=== PATIENT | female | born 1990 | race African-American/Black ===

== ENCOUNTER → 2017-01-30 | Outpatient (REF) | payer MEDICAID, SELFPAY ==
[2017-01-30 12:31] LABS: MEAN CORPUSCULAR HEMOGLOBIN 29.4 pg (27.0-33.0); MEAN CORPUSCULAR HGB CONC 33.8 g/dl (32.0-36.5); RED CELL DISTRIBUTION WIDTH 13.3 % (11.5-14.5); WHITE BLOOD COUNT 8.5 K/mm3 (4.0-10.0)
[2017-01-30 12:38] LABS: ALBUMIN 3.8 GM/DL (3.2-5.2); ALBUMIN/GLOBULIN RATIO 0.93 (1.00-1.93); ALKALINE PHOSPHATASE 73 U/L (45-117); ALT/SGPT 30 U/L (12-78); ANION GAP 7 MEQ/L (8-16); AST/SGOT 19 U/L (15-37); BILIRUBIN,TOTAL 0.4 MG/DL (0.2-1.0); BLOOD UREA NITROGEN 9 MG/DL (7-18); CARBON DIOXIDE LEVEL 27 MEQ/L (21-32); CHLORIDE LEVEL 104 MEQ/L (98-107); GLOMERULAR FILTRATION RATE > 60.0 (>60); GLUCOSE, FASTING 94 MG/DL (70-105); POTASSIUM SERUM 3.6 MEQ/L (3.5-5.1); SODIUM LEVEL 138 MEQ/L (136-145); TOTAL PROTEIN 7.9 GM/DL (6.4-8.2)
== END ==
LOC: M SFHCPLAZ 09:58
PROVIDERS: ATTEND Nurse Practitioner Adult Health
DX: Z00.00 Encounter for general adult medical examination without abnormal findings (principal); Z68.44 Body mass index [BMI] 60.0-69.9, adult; Z83.3 Family history of diabetes mellitus

== ENCOUNTER → 2017-02-11 | Outpatient (CLI) | payer MEDICAID, OTHER, SELFPAY ==
[~2017-02-11] MED LIST: METHACHOLINE KIT (J7674) INH ONE
--- NOTE | 2017-02-11 11:14 | PFTRPT ---
Tech: Franklyn Whitehead SALES TRADER Age: 26 Sex: Female Race: Black Height: 64.00 Inches Weight: 367.00 Lbs BSA: 2.54 Diagnosis: E66.01 Z87.09 L90.5 PULMONARY FUNCTION REPORT ORDERING PROVIDER: CAIO Bartlett DATE OF SERVICE: 02/11/17 SPIROMETRY: Excellent technical quality. The forced vital capacity is reduced. The FEV1 is in proportion. The obstructive index is, therefore, normal. FLOW VOLUME LOOP: The expiratory limb of the flow volume loop suggests some nonspecific reduction. LUNG VOLUMES: The total lung capacity is elevated. The residual volume suggests air trapping. DIFFUSION CAPACITY: The diffusion capacity is normal. HEMOGLOBIN: No hemoglobin is available for correction. AIRWAY MECHANICS: Airways resistance and conductance are normal. IMPRESSION: Underlying air trapping. Please correlate clinically. MTDD
--- NOTE | 2017-02-11 11:53 | PFTRPT ---
Tech: Franklyn Whitehead PAPER SORTER AND COUNTER Age: 26 Sex: Female Race: Black Height: 64.00 Inches Weight: 367.00 Lbs BSA: 2.53 Diagnosis: E66.01 METHACHOLINE CHALLENGE REPORT: ORDERING PROVIDER: CAIO Bartlett DATE OF SERVICE: 02/11/17 INTERPRETATION: The study was of excellent technical quality. Under protocol, methacholine was administered. At a dose of 2.5 mg (13.875 CDUs), a 58% decline in the FEV1 was noted. The PC20 of 0.36 is significant. Flow rates returned to near baseline post bronchodilator administration. IMPRESSION: Positive methacholine challenge study. MTDD
== END ==
LOC: M CARPUL 10:23
PROVIDERS: ATTEND Nurse Practitioner Adult Health
DX: E66.01 Morbid (severe) obesity due to excess calories (principal)
CPT/HCPCS: 94010; 94070; 94726; 94729; J7674

== ENCOUNTER → 2017-06-11 | Outpatient (CLI) | payer OTHER ==
--- NOTE | 2017-06-11 17:18 | REP ---
Clinical: Hypertension. Technique: Acevedo scale evaluation of the kidneys and renal vasculature using curved array transducer. Findings: The kidneys are essentially normal in contour size and echogenicity and reniform shape without hydronephrosis, nephrolithiasis, cystic or renal mass lesion. Right kidney measures 11.6 x 5.8 x 4.4 cm . Left kidney measures 11.8 x 7.0 x 5.4 cm. Bladder is unremarkable and measures 12.6 x 8.1 x 9.5 cm Impression: Normal renal ultrasound. Signed by Patricio Powell MD 06/11/2017 05:08 P
== END ==
LOC: M RAD 15:31
PROVIDERS: ATTEND Nurse Practitioner Adult Health
DX: I10 Essential (primary) hypertension (principal)

== ENCOUNTER → 2017-06-14 | Outpatient (CLI) | payer OTHER ==
--- NOTE | 2017-06-18 12:42 | SLEEPCENT ---
DATE OF STUDY: 06/14/2017 ORDERING PROVIDER: Devika Moon NP Nocturnal polysomnography was performed due to concern for the obstructive sleep apnea syndrome in this patient with a history of excessive somnolence. 7 hours and 7 minutes of data were reviewed. There were 344 minutes of sleep identified. Sleep latency was short at 3 minutes. Rapid eye movement (REM) latency was short at 40 minutes. Sleep architecture showed initial fragmentation, and significant improvement was appreciated after interventions were made. Overall sleep efficiency was 82%. The patient's electrocardiogram (EKG) showed a sinus rhythm with an average heart rate of 76 beats per minute. Electroencephalogram (EEG) showed fairly normal waveforms for awake and sleep. No focal events were identified. There were 164 respiratory events identified of 10 seconds in duration or greater for an apnea-hypopnea index of 28.6. The events were primarily obstructive, not exclusive to sleep stage, more frequent but not exclusive to the supine posture. Oxygen desaturations were seen into the 60s. Having clearly established the presence of obstructive sleep apnea syndrome, testing was stopped shortly after midnight for the application of pressure therapy. The patient was fit with a XINTEC Simplus full face mask of small size. 4 cm of water pressure were applied to the circuit, and the lights were extinguished. Throughout the remaining hours of testing, titration was performed to an optimal pressure of 16, with which the patient slept through REM without respiratory event or oxygen desaturation in the supine posture. IMPRESSION: Severe obstructive sleep apnea syndrome (G47.33). Apnea-hypopnea index 28.6. RECOMMENDATION: Nightly use of pressure therapy, 16 cm of water.
== END ==
LOC: M SLEEP 19:53
PROVIDERS: ATTEND Nurse Practitioner Adult Health
DX: G47.33 Obstructive sleep apnea (adult) (pediatric) (principal)

== ENCOUNTER → 2017-08-28 | Outpatient (CLI) | payer OTHER ==
[2017-08-28 17:07] LABS: HEMATOCRIT 40.7 % (36.0-47.0); HEMOGLOBIN 12.9 g/dl (12.0-16.0); MEAN CORPUSCULAR HEMOGLOBIN 26.9 pg (27.0-33.0); MEAN CORPUSCULAR HGB CONC 31.7 g/dl (32.0-36.5); MEAN CORPUSCULAR VOLUME 84.8 fl (80.0-96.0); PLATELET COUNT, AUTOMATED 292 10^3/uL (150-450); RED CELL DISTRIBUTION WIDTH 13.6 % (11.5-14.5); WHITE BLOOD COUNT 8.4 10^3/uL (4.0-10.0)
[2017-08-28 17:42] LABS: ALBUMIN 3.8 GM/DL (3.2-5.2); ALBUMIN/GLOBULIN RATIO 0.83 (1.00-1.93); ALKALINE PHOSPHATASE 66 U/L (45-117); ALT/SGPT 30 U/L (12-78); ANION GAP 6 MEQ/L (8-16); AST/SGOT 26 U/L (7-37); BILIRUBIN,TOTAL 0.3 MG/DL (0.2-1.0); BLOOD UREA NITROGEN 10 MG/DL (7-18); CALCIUM LEVEL 9.4 MG/DL (8.5-10.1); CARBON DIOXIDE LEVEL 30 MEQ/L (21-32); CHLORIDE LEVEL 103 MEQ/L (98-107); GLOMERULAR FILTRATION RATE > 60.0 (>60); GLUCOSE, FASTING 84 MG/DL (70-100); POTASSIUM SERUM 4.4 MEQ/L (3.5-5.1); SODIUM LEVEL 139 MEQ/L (136-145); TOTAL PROTEIN 8.4 GM/DL (6.4-8.2)
[2017-08-28 18:28] LABS: ESTIMATED AVERAGE GLUCOSE 134 MG/DL (60-110); HEMOGLOBIN A1c 6.3 %
== END ==
LOC: M LAB 15:40
DX: G47.30 Sleep apnea, unspecified (principal); I10 Essential (primary) hypertension; R73.9 Hyperglycemia, unspecified
CPT/HCPCS: 80053

== ENCOUNTER 2017-11-02 07:35 | Emergency (ER) | payer OTHER ==
[2017-11-02] MEDS: IBUPROFEN 800 MG TAB PO ×2 (08:14)
[2017-11-02] MEDS: ONDANSETRON 4 MG ORAL DISINTEGRATING TAB (Q0162 PER 1MG) PO (08:15)
[2017-11-02] MEDS: ACETAMINOPHEN 325 MG TAB PO ×2 (08:15)
[2017-11-02] MEDS: ONDANSETRON 4 MG ORAL DISINTEGRATING TAB (S0181) PO (08:15)
[2017-11-02 08:53] LABS: INFLUENZA A AMPLIFICATION NEGATIVE (NEGATIVE); INFLUENZA B AMPLIFICATION NEGATIVE (NEGATIVE)
== END 2017-11-02 09:24 | disposition home or self-care (01) ==
LOC: M ED 07:35
DX: B34.9 Viral infection, unspecified (principal); H66.92 Otitis media, unspecified, left ear; E66.01 Morbid (severe) obesity due to excess calories; I10 Essential (primary) hypertension; J45.909 Unspecified asthma, uncomplicated; Z87.09 Personal history of other diseases of the respiratory system; Z79.899 Other long term (current) drug therapy
CPT/HCPCS: 71046; Q0162

== ENCOUNTER 2018-04-21 00:01 | Emergency (ER) | payer OTHER ==
[2018-04-21] MEDS: CEPHALEXIN 500 MG CAP PO (00:57)
== END 2018-04-21 01:31 | disposition home or self-care (01) ==
LOC: M ED 00:01
DX: J02.0 Streptococcal pharyngitis (principal); I10 Essential (primary) hypertension; J45.909 Unspecified asthma, uncomplicated; Z79.899 Other long term (current) drug therapy
CPT/HCPCS: 87880

== ENCOUNTER → 2018-08-26 | Outpatient (REF) | payer OTHER ==
[~2018-08-26] MED LIST changes: +AMLO5TAB6; +AMOX875T PO; +KEFL500C17 PO; -METHACHOLINE KIT (J7674) INH ONE; +METO1TAB32; +ZOFR4TAB14 PO
[2018-08-26 13:08] LABS: HEMATOCRIT 41.6 % (36.0-47.0); HEMOGLOBIN 13.5 g/dl (12.0-15.5); MEAN CORPUSCULAR HEMOGLOBIN 28.1 pg (27.0-33.0); MEAN CORPUSCULAR HGB CONC 32.5 g/dl (32.0-36.5); MEAN CORPUSCULAR VOLUME 86.7 fl (80.0-96.0); PLATELET COUNT, AUTOMATED 298 10^3/uL (150-450); WHITE BLOOD COUNT 8.1 10^3/uL (4.0-10.0)
[2018-08-26 13:23] LABS: ALBUMIN 4.2 GM/DL (3.2-5.2); ALT/SGPT 32 U/L (12-78); BILIRUBIN,TOTAL 0.2 MG/DL (0.2-1.0); BLOOD UREA NITROGEN 9 MG/DL (7-18); CALCIUM LEVEL 8.9 MG/DL (8.5-10.1); CARBON DIOXIDE LEVEL 27 MEQ/L (21-32); CHLORIDE LEVEL 104 MEQ/L (98-107); CREATININE FOR GFR 0.69 MG/DL (0.55-1.30); GLOMERULAR FILTRATION RATE > 60.0 (>60); GLUCOSE, FASTING 101 MG/DL (70-100); POTASSIUM SERUM 3.9 MEQ/L (3.5-5.1); SODIUM LEVEL 138 MEQ/L (136-145); TOTAL PROTEIN 8.5 GM/DL (6.4-8.2)
[2018-08-26 14:10] LABS: HEMOGLOBIN A1c 6.7 %
== END ==
LOC: M SFHCPLAZ 10:54
PROVIDERS: ATTEND Nurse Practitioner Adult Health
DX: I10 Essential (primary) hypertension (principal); E74.39 Other disorders of intestinal carbohydrate absorption; G47.30 Sleep apnea, unspecified

== ENCOUNTER 2018-10-12 23:21 | Emergency (ER) | payer OTHER ==
[~2018-10-12] VITALS: Ht 162.6 cm; Wt 167.7 kg
[2018-10-13 00:32] LABS: ABG BASE EXCESS 0.6 (-2.0-2.0); ABG HCO3 24.9 MEQ/L (22.0-26.0); ABG O2 SATURATION 95.1 % (95.0-99.0); ABG PARTIAL PRESSURE CO2 39.2 mmHg (35.0-45.0); ABG PARTIAL PRESSURE O2 75.2 mmHg (75.0-100.0); ABG STANDARD HCO3 24.9 MEQ/L (22.0-26.0); ABG TOTAL CO2 26.1 MEQ/L (22.0-29.0); ABG pH (ARTERIAL) 7.421 UNITS (7.350-7.450)
[2018-10-13 01:43] LABS: BASO # 0.1 10^3/uL (0.0-0.2); BASO % 0.7 % (0.0-1.0); EOS # 0.3 10^3/uL (0.0-0.50); EOS % 2.4 % (0.0-3.0); HEMATOCRIT 39.7 % (36.0-47.0); HEMOGLOBIN 12.9 g/dl (12.0-15.5); LYMPH # 3.6 10^3/uL (1.5-6.5); LYMPH % 33.4 % (24.0-44.0); MEAN CORPUSCULAR HEMOGLOBIN 28.4 pg (27.0-33.0); MEAN CORPUSCULAR HGB CONC 32.5 g/dl (32.0-36.5); MEAN CORPUSCULAR VOLUME 87.3 fl (80.0-96.0); MONO # 0.5 10^3/uL (0.0-0.8); MONO % 4.5 % (0.0-5.0); NEUTROPHILS # 6.3 10^3/uL (1.8-7.7); NEUTROPHILS % 58.6 % (36.0-66.0); PLATELET COUNT, AUTOMATED 309 10^3/uL (150-450); RED BLOOD COUNT 4.55 10^6/uL (4.00-5.40); WHITE BLOOD COUNT 10.8 10^3/uL (4.0-10.0)
[2018-10-13 01:58] LABS: HCG, SERUM QUALITATIVE NEGATIVE (NEGATIVE)
[2018-10-13 02:16] LABS: BLOOD UREA NITROGEN 10 MG/DL (7-18); CALCIUM LEVEL 9.1 MG/DL (8.5-10.1); CARBON DIOXIDE LEVEL 27 MEQ/L (21-32); CHLORIDE LEVEL 107 MEQ/L (98-107); CPK CREATINE PHOSPHOKINASE 140 U/L (26-192); CREATININE FOR GFR 0.63 MG/DL (0.55-1.30); GLOMERULAR FILTRATION RATE > 60.0 (>60); GLUCOSE, FASTING 82 MG/DL (70-100); MB/CK RELATIVE INDEX 1.71 (< OR =4); POTASSIUM SERUM 3.9 MEQ/L (3.5-5.1); SODIUM LEVEL 141 MEQ/L (136-145); TROPONIN I < 0.02 NG/ML (< 0.10)
[2018-10-13] MEDS ORDERED: ISOVUE-370 76% 100ML VIAL (Q9967) As Ordered ONE (03:01)
--- NOTE | 2018-10-13 04:09 | REPVR ---
EXAM: CT Angiography Chest With Contrast EXAM DATE/TIME: 10/13/2018 3:11 AM CLINICAL HISTORY: 28 years old, female; Pain; Chest pain; Additional info: Dysp TECHNIQUE: Imaging protocol: Axial computed tomographic angiography images of the chest with intravenous contrast using CT angiography protocol. Coronal and sagittal reformatted images were created and reviewed. 3D rendering: MIP reconstructed images were created and reviewed. Radiation optimization: All CT scans at this facility use at least one of these dose optimization techniques: automated exposure control; mA and/or kV adjustment per patient size (includes targeted exams where dose is matched to clinical indication); or iterative reconstruction. Contrast material: ISO 370 Contrast volume: 75 ml Contrast route: IV COMPARISON: CR Chest, 2 view PA, Lat 10/13/2018 12:18 AM FINDINGS: Pulmonary arteries: Normal. No pulmonary emboli. Aorta: Normal. No aortic aneurysm. No aortic dissection. Lungs: Minor atelectasis or scarring left lower lobe. Minor focal interstitial opacities of the right upper lobe laterally and right middle lobe. Pleural space: Normal. No pneumothorax. No pleural effusion. Heart: Right to left ventricular ratio 0.7-0.8. Lymph nodes: Unremarkable. No enlarged lymph nodes. Bones/joints: Degenerative change of the spine. Soft tissues: Unremarkable. Other findings: Limitations secondary to patient body habitus. IMPRESSION: 1. No acute pulmonary embolus. 2. Minor patchy parenchymal opacities bilaterally as described. Electronically signed by: Estela Kiran On 10/13/2018 04:09:13 AM
[2018-10-13 04:43] VITALS: BP 152/109
--- NOTE | 2018-10-13 06:46 | ECGEPIP ---
Stationary ECG Study 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
--- NOTE | 2018-10-13 08:07 | REP ---
Chest x-ray: Two views. History: Pain . Comparison study: November 02, 2017 . Findings: The lungs are well inflated and free of infiltrate. The pleural angles are sharp. The heart size is normal. Pulmonary vasculature is not increased. No significant bony abnormality is seen. Impression: Negative chest x-ray. Electronically Signed by Minor Pham MD 10/13/2018 07:59 A
== END 2018-10-13 04:49 | disposition home or self-care (01) ==
LOC: M ED 23:21
DX: R07.89 Other chest pain (principal); E66.01 Morbid (severe) obesity due to excess calories; I10 Essential (primary) hypertension; J45.909 Unspecified asthma, uncomplicated
CPT/HCPCS: 36600; 71046; 71275; 80048; 82550; 82553; 82803; 84703; 85025; 93005; 99284; Q9967

== ENCOUNTER → 2019-02-25 | Outpatient (REF) | payer BC ==
[2019-02-25 15:20] LABS: ALBUMIN 3.8 GM/DL (3.2-5.2); ALT/SGPT 28 U/L (12-78); BILIRUBIN,TOTAL 0.3 MG/DL (0.2-1.0); BLOOD UREA NITROGEN 7 MG/DL (7-18); CARBON DIOXIDE LEVEL 29 MEQ/L (21-32); CHLORIDE LEVEL 105 MEQ/L (98-107); CREATININE FOR GFR 0.62 MG/DL (0.55-1.30); GLOMERULAR FILTRATION RATE > 60.0 (>60); GLUCOSE, FASTING 98 MG/DL (70-100); SODIUM LEVEL 140 MEQ/L (136-145); TOTAL PROTEIN 8.2 GM/DL (6.4-8.2)
[2019-02-25 16:10] LABS: HEMOGLOBIN A1c 6.5 %
== END ==
LOC: M SFHCPLAZ 10:56
PROVIDERS: ATTEND Nurse Practitioner Adult Health
DX: I10 Essential (primary) hypertension (principal); E74.39 Other disorders of intestinal carbohydrate absorption

== ENCOUNTER → 2019-05-08 | Outpatient (REF) ==
[2019-05-08 15:11] LABS: HEP C VIRUS AB INDEX SOURCE PT 0.1 INDEX (0.0-0.8); HEPATITIS B SURFACE ANTIGEN NEGATIVE (NEGATIVE)
[2019-05-08 15:19] LABS: HIV SCREEN CENTAUR SOURCE NEGATIVE (NEGATIVE)
== END ==
LOC: M LAB 12:20
PROVIDERS: ATTEND Family Medicine
DX: Z77.21 Contact with and (suspected) exposure to potentially hazardous body fluids (principal)

== ENCOUNTER 2019-06-01 22:20 | Emergency (ER) | payer BC ==
[~2019-06-01] VITALS: Ht 160 cm; Wt 163.6 kg
[2019-06-02 01:09] LABS: BASO # 0.1 10^3/uL (0.0-0.2); BASO % 0.5 % (0.0-1.0); EOS # 0.2 10^3/uL (0.0-0.5); EOS % 1.3 % (0.0-3.0); HEMATOCRIT 40.7 % (36.0-47.0); HEMOGLOBIN 13.2 g/dl (12.0-15.5); LYMPH # 3.3 10^3/uL (1.5-5.0); LYMPH % 24.6 % (24.0-44.0); MEAN CORPUSCULAR HEMOGLOBIN 28.8 pg (27.0-33.0); MEAN CORPUSCULAR HGB CONC 32.4 g/dl (32.0-36.5); MEAN CORPUSCULAR VOLUME 88.7 fl (80.0-96.0); MONO # 0.7 10^3/uL (0.0-0.8); MONO % 5.3 % (0.0-5.0); NEUTROPHILS # 9.1 10^3/uL (1.5-8.5); NEUTROPHILS % 67.9 % (36.0-66.0); PLATELET COUNT, AUTOMATED 301 10^3/uL (150-450); RED BLOOD COUNT 4.59 10^6/uL (4.00-5.40); WHITE BLOOD COUNT 13.5 10^3/uL (4.0-10.0)
[2019-06-02] MEDS ORDERED: AMOX500C PO (02:03)
[2019-06-02] MEDS ORDERED: AMOXICILLIN 500 MG CAP As Ordered ONE (02:09)
[2019-06-02 02:11] VITALS: BP 170/96
[2019-06-02 02:15] VITALS: BP 166/85
[2019-06-02] MEDS ORDERED: amLODIPine 5 MG TAB PO ONE (02:15)
[2019-06-02] MEDS ORDERED: METOPROLOL SUCC *XL* 25MG TAB (TopROL *XL*) PO ONE (02:15)
--- NOTE | 2019-06-02 02:56 | REP ---
Clinical: Cough and dyspnea . Comparison: 10/13/2018 . Technique: PA and lateral. Findings: The mediastinum and cardiac silhouette are normal. The lung cuevas are clear and without acute consolidation, effusion, or pneumothorax. The skeletal structures are intact and normal. Impression: 1. No acute cardiopulmonary process. Electronically Signed by Patricio Powell MD 06/02/2019 02:47 A
[2019-06-02] MEDS ORDERED: AMOXICILLIN 500 MG CAP PO ONE (03:00)
== END 2019-06-02 02:17 | disposition home or self-care (01) ==
LOC: M ED 22:20
DX: J18.9 Pneumonia, unspecified organism (principal); I10 Essential (primary) hypertension; J45.909 Unspecified asthma, uncomplicated; G47.30 Sleep apnea, unspecified; Z79.899 Other long term (current) drug therapy

== ENCOUNTER → 2020-01-05 | Outpatient (CLI) | payer BC ==
[~2020-01-05] MED LIST changes: +AMOX500C PO
--- NOTE | 2020-01-05 14:55 | REP ---
Left lower extremity Duplex Doppler venous ultrasound: Real time compression and duplex Doppler interrogation of the left lower extremity deep venous system is performed. The left common femoral, superficial femoral and popliteal veins are fully compressible with transducer pressure and demonstrate normal spontaneous and phasic flow, without evidence of deep venous thrombosis. Impression: No evidence of deep venous thrombosis of the left lower extremity femoral popliteal venous system.
== END ==
LOC: M WHC 13:56
PROVIDERS: ATTEND Family Medicine
DX: M79.662 Pain in left lower leg (principal)

== ENCOUNTER → 2020-01-05 | Outpatient (CLI) | payer BC ==
--- NOTE | 2020-01-05 16:36 | REPPI ---
LEFT ANKLE, FOUR VIEWS: Four views of the left ankle performed. No acute fracture or dislocation is seen. The ankle mortise is anatomic. There is moderate soft tissue swelling diffusely. There are tiny posterior inferior calcaneal spurs. Electronically Signed by Saul Acevedo MD 01/06/2020 04:40 P
== END ==
LOC: M PLAIMG 14:43
PROVIDERS: ATTEND Family Medicine
DX: M79.662 Pain in left lower leg (principal); M77.32 Calcaneal spur, left foot; M79.89 Other specified soft tissue disorders

== ENCOUNTER → 2020-01-12 | Outpatient (CLI) | payer BC ==
--- NOTE | 2020-01-12 11:26 | REPPI ---
Clinical: Left foot pain. Technique: AP, lateral, bilateral oblique views left foot . Findings: The osseous structures and joint spaces are intact and normal. There is no evidence for acute fracture or dislocation. Surrounding soft tissues are unremarkable. No subcutaneous emphysema or radiodense foreign body. Impression: No acute fracture or dislocation. Electronically Signed by Patricio Powell MD 01/12/2020 11:18 A
[2020-01-12 11:56] LABS: HEMATOCRIT 42.1 % (36.0-47.0); HEMOGLOBIN 13.2 g/dl (12.0-15.5); MEAN CORPUSCULAR HGB CONC 31.4 g/dl (32.0-36.5); MEAN CORPUSCULAR VOLUME 89.4 fl (80.0-96.0); PLATELET COUNT, AUTOMATED 283 10^3/uL (150-450); RED BLOOD COUNT 4.71 10^6/uL (4.00-5.40); WHITE BLOOD COUNT 7.8 10^3/uL (4.0-10.0)
[2020-01-12 12:08] LABS: ALBUMIN 3.8 GM/DL (3.2-5.2); ALT/SGPT 34 U/L (12-78); BILIRUBIN,TOTAL 0.5 MG/DL (0.2-1.0); BLOOD UREA NITROGEN 10 MG/DL (7-18); CARBON DIOXIDE LEVEL 28 MEQ/L (21-32); CHLORIDE LEVEL 104 MEQ/L (98-107); CHOLESTEROL LEVEL 201 MG/DL (<200); CHOLESTEROL RISK RATIO 7.444 (<5); CREATININE FOR GFR 0.67 MG/DL (0.55-1.30); GLOMERULAR FILTRATION RATE > 60.0 (>60); GLUCOSE, FASTING 94 MG/DL (70-100); HDL CHOLESTEROL 27 MG/DL (>40); LDL CHOLESTEROL 138 MG/DL (<100); NON-HDL-C 174 MG/DL; POTASSIUM SERUM 4.1 MEQ/L (3.5-5.1); SODIUM LEVEL 138 MEQ/L (136-145); TOTAL PROTEIN 8.3 GM/DL (6.4-8.2); TRIGLYCERIDES LEVEL 181 MG/DL (<150)
[2020-01-12 13:17] LABS: HEMOGLOBIN A1c 6.6 %
== END ==
LOC: M PLAIMG 09:34
PROVIDERS: ATTEND Nurse Practitioner Adult Health
DX: E74.39 Other disorders of intestinal carbohydrate absorption (principal); E66.01 Morbid (severe) obesity due to excess calories; M79.672 Pain in left foot

== ENCOUNTER 2020-04-05 19:11 | Emergency (ER) | payer BC ==
[~2020-04-05] VITALS: Ht 160 cm; Wt 176.6 kg
[~2020-04-05 19:11] MED LIST changes: +AMLO1TAB24; -AMLO5TAB6
[2020-04-05] MEDS ORDERED: CHLO125TA (19:21)
[2020-04-05] MEDS ORDERED: METOPROLOL SUCC *XL* 25MG TAB (TopROL *XL*) PO ONE (20:30)
[2020-04-05] MEDS ORDERED: amLODIPine 5 MG TAB PO ONE (20:30)
[2020-04-05 20:42] VITALS: BP 146/68
[2020-04-05] MEDS ORDERED: AMLO1TAB24 PO (22:04)
[2020-04-05] MEDS ORDERED: METO1TAB32 PO (22:04)
[2020-04-05 22:31] VITALS: BP 145/70
== END 2020-04-05 22:35 | disposition home or self-care (01) ==
LOC: M ED 19:11
DX: I10 Essential (primary) hypertension (principal); G44.209 Tension-type headache, unspecified, not intractable; F41.1 Generalized anxiety disorder; Z87.891 Personal history of nicotine dependence; Z79.899 Other long term (current) drug therapy

== ENCOUNTER 2020-04-09 19:20 | Emergency (ER) | payer BC ==
[~2020-04-09] VITALS: Ht 162.6 cm; Wt 174.5 kg
[~2020-04-09 19:20] MED LIST changes: +AMLO1TAB24 PO; +CHLO125TA; +METO1TAB32 PO
[2020-04-09 19:55] LABS: BASO # 0.1 10^3/uL (0.0-0.2); BASO % 0.7 % (0.0-1.0); EOS # 0.2 10^3/uL (0.0-0.5); EOS % 2.5 % (0.0-3.0); HEMATOCRIT 42.7 % (36.0-47.0); HEMOGLOBIN 13.7 g/dl (12.0-15.5); LYMPH # 2.2 10^3/uL (1.5-5.0); LYMPH % 25.2 % (24.0-44.0); MEAN CORPUSCULAR HEMOGLOBIN 28.4 pg (27.0-33.0); MEAN CORPUSCULAR HGB CONC 32.1 g/dl (32.0-36.5); MEAN CORPUSCULAR VOLUME 88.4 fl (80.0-96.0); MONO # 0.5 10^3/uL (0.0-0.8); MONO % 5.4 % (0.0-5.0); NEUTROPHILS # 5.8 10^3/uL (1.5-8.5); NEUTROPHILS % 65.6 % (36.0-66.0); RED BLOOD COUNT 4.83 10^6/uL (4.00-5.40); WHITE BLOOD COUNT 8.9 10^3/uL (4.0-10.0)
[2020-04-09 20:18] LABS: HCG, SERUM QUALITATIVE NEGATIVE (NEGATIVE)
[2020-04-09] MEDS ORDERED: GI COCKTAIL 50ML BTL(HYOSCYAMINE/MAALOX/LIDOCAINE VISCOUS)(1:3:1) PO ONE (20:30)
[2020-04-09 20:38] LABS: BLOOD UREA NITROGEN 12 MG/DL (7-18); CALCIUM LEVEL 8.9 MG/DL (8.5-10.1); CARBON DIOXIDE LEVEL 25 MEQ/L (21-32); CHLORIDE LEVEL 108 MEQ/L (98-107); CK-MB VALUE MASS 2.2 NG/ML (<3.6); CPK CREATINE PHOSPHOKINASE 226 U/L (26-192); CREATININE FOR GFR 0.73 MG/DL (0.55-1.30); GLOMERULAR FILTRATION RATE > 60.0 (>60); GLUCOSE, FASTING 109 MG/DL (70-100); MB/CK RELATIVE INDEX 0.97 (< OR =4); POTASSIUM SERUM 4.5 MEQ/L (3.5-5.1); SODIUM LEVEL 138 MEQ/L (136-145); TROPONIN I < 0.02 NG/ML (< 0.10)
[2020-04-09 22:05] VITALS: BP 151/74
--- NOTE | 2020-04-09 22:07 | REPVR ---
PROCEDURE INFORMATION: Exam: XR Chest, 1 View Exam date and time: 04/09/2020 9:34 PM Age: 30 years old Clinical indication: Chest pain; Type not specified TECHNIQUE: Imaging protocol: XR of the chest Views: 1 view. COMPARISON: CR Chest, 2 view JAKE Lat 2019-06-02 01:28 FINDINGS: Limitations: Limited by patient's body habitus. Lungs: Unremarkable. No consolidation. Pleural space: Unremarkable. No pleural effusion. No pneumothorax. Heart/Mediastinum: Unremarkable. No cardiomegaly. Bones/joints: Unremarkable. IMPRESSION: No acute findings. Electronically signed by: Jose Luis Irene On 04/09/2020 22:07:45 PM
--- NOTE | 2020-04-10 15:26 | ECGEPIP ---
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
== END 2020-04-09 22:23 | disposition home or self-care (01) ==
LOC: M ED 19:20
DX: R07.89 Other chest pain (principal); R06.02 Shortness of breath; I10 Essential (primary) hypertension; E78.5 Hyperlipidemia, unspecified; F33.9 Major depressive disorder, recurrent, unspecified; Z79.899 Other long term (current) drug therapy

== ENCOUNTER → 2020-08-03 | Outpatient (CLI) | payer BC ==
--- NOTE | 2020-08-04 10:32 | REPPI ---
INDICATION: M79.672 LEFT FOOT PAIN COMPARISON: None. TECHNIQUE: AP, lateral, bilateral oblique views left foot. FINDINGS: The osseous structures and joint spaces are intact and normal. There is no evidence for acute fracture or dislocation. Surrounding soft tissues are unremarkable. No subcutaneous emphysema or radiodense foreign body. IMPRESSION: Normal left foot examination.. No acute fracture or dislocation. <Electronically signed by Patricio Powell > 08/04/20 1029
== END ==
LOC: M PLAIMG 15:20
PROVIDERS: ATTEND Physician Assistant
DX: M79.672 Pain in left foot (principal)

== ENCOUNTER → 2020-08-18 | Outpatient (REF) | payer BC ==
[2020-08-18 14:02] LABS: ALT/SGPT 38 U/L (12-78); BILIRUBIN,TOTAL < 0.1 MG/DL (0.2-1.0); BLOOD UREA NITROGEN 14 MG/DL (7-18); CALCIUM LEVEL 9.3 MG/DL (8.5-10.1); CARBON DIOXIDE LEVEL 29 MEQ/L (21-32); CHLORIDE LEVEL 104 MEQ/L (98-107); CREATININE FOR GFR 0.68 MG/DL (0.55-1.30); GLOMERULAR FILTRATION RATE > 60.0 (>60); GLUCOSE, FASTING 97 MG/DL (70-100); POTASSIUM SERUM 3.9 MEQ/L (3.5-5.1); SODIUM LEVEL 140 MEQ/L (136-145); TOTAL PROTEIN 7.9 GM/DL (6.4-8.2)
[2020-08-18 14:17] LABS: CREATININE, URINE 90.2 MG/DL; MALB URINE SIEMENS 45.7 MG/L; MAU/CREAT RATIO 50.6 MCG/MG (0.0-30.0)
[2020-08-18 14:52] LABS: HEMOGLOBIN A1c 5.8 %
== END ==
LOC: M SFHCPLAZ 11:20
PROVIDERS: ATTEND Nurse Practitioner Adult Health
DX: E11.9 Type 2 diabetes mellitus without complications (principal)

== ENCOUNTER 2021-05-06 20:37 | Emergency (ER) | payer BC ==
[~2021-05-06] VITALS: Ht 160 cm; Wt 154.9 kg
--- OUTSIDE RECORDS SUMMARY | 2021-05-06 20:44 | CCD ---
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 Active confir med 963985242 Problem Family history of diabetes mellitus Z83.3 Acti ve confirmed 563232882 Problem Morbid (severe) obesity due to excess calories E66 .01 Active confirmed 058183740 Problem Contraceptive education Z30.09 Active confirmed 840552575 Problem Anxiety F41.9 Active confirmed 60040101 Problem Hx of pleural empyema Z87.09 Active confirmed 702139843 Problem Glucose intolerance E74.39 Active confirmed 8409384 Problem Body mass index (BMI) of 60.0-69.9 in adult Z68.44 Active confirmed 157495188 Problem Essential hypertension I10 Active confirmed 70727630 Problem Uncomplicated asthma, unspecified asthma severity J45.909 Active confirmed 616806929 Problem Severe sleep apnea G47.30 Active confirmed 7 1518971 Problem Type 2 diabetes mellitus wit hout complication, without long-term current use of insulin E11.9 Active confirmed 143561047 ALLERGIES No Known Allergies ENCOUNTERS from 1990 to 2021-02-21 Encounter Location Date Provider Diagnosis [place] [id number] [facility] [phone] [place] [address] Feb, Blanche Rabagoage IMMUNIZATIONS Vaccine Route Administration Date Status Influenza 6mo & up Fluzone Unknown Apr 18, 2020 Admin istered Influenza 6mo & up Fluzone Unknown Jun 05, 2019 Admin istered Influenza 6mo & up Fluzone Unknown May 08, 2017 Admin istered SOCIAL HISTORY Tobacco Use: Social History Observation Description Date Details (start date - stop date) Never Smoker Sex Assigned At : Social History Observation Description Sex Assigned At Unknown Education: Question Answer Notes 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 Sexual Hx: Question Answer Notes Had sex in the last 12 months (vaginal, oral, or anal)? Yes Have you ever had an STD? No Prevention Strategies discussed: Condoms with Men only Use protection? No Drug and Alcohol Question Answer Notes Total Score: 0 Interpretation: No problems reported Alcohol Screening: Question Answer Notes Did you have a drink containing alcohol in the past year? No Points 0 Interpretation Negative BMI Care Goal Follow-Up Question Answer Notes Above Normal BMI Follow-Up Dietary management educatio n, guidance, and counseling Tobacco Use: Question Answer Notes Are you a: never smoker REASON FOR REFERRAL No Information VITAL SIGNS No information MEDICATIONS Medication SIG (Take, Route, Frequency, Duration) Notes Start Da te End Date Status Womens Daily Formula - 1 tab Orally bid Vitafusion Active Fluticasone Propionate 50 MCG/ACT 1 spray in each nost ril Nasally Once a day for 30 day(s) Active Amlodipine Besylate 5 MG TAKE ONE TABLET BY MOUTH EVERY DAY for 90 Active Post-OP Shoe/Soft Top Women - as directed dx: M79.672 for 14 day s Jul, Active Ciprofloxacin-Dexamethasone 0.3-0.1 % 4 drps into each ear Otic Twice a day for 7 day(s) Sep, Active Lisinopril 10 MG 1 tablet Orally Once a day for 90 Active CPAP Active Januvia 100 MG 1 tablet Orally Once a day for 90 days Active Norvasc 5 MG 1 tablet Orally Once a day for 90 day(s) Active Ventolin HFA 108 (90 Base) MCG/ACT 1 puff as needed Inhalation ever y 4 hrs Active Toprol XL 25 mg 1 tablet Orally Once a day for 30 Active Chlorthalidone 25 MG 1 tablet in the morning with food Orally Once a day for 30 day(s) Active Advair Diskus 250-50 MCG/DOSE 1 puff Inhalation Twice a day for 30 days May, Not-Taking PROCEDURES No Information RESULTS No Results REASON FOR VISIT No Information MEDICAL (GENERAL) HISTORY Type Description Date Medical History 06/14/2014, Jacqueline, left t horacotomy, decorticate dictation and chemical pleurodesis for left empyema 400 mL of loculated pleural fluid removed Medical History history of hypertension Medical History morbid obesity Medical History 02/11/2017 positive methacholine challen ge study at [facility] Medical History 06/14/17 Severe Sleep Apnea, Cpap thru [facility] Medical History hsitory of cyst Surgical History [facility], left thor acotomy decortication and chemical pleurodesis 06/14/2014 Hospitalization History [facility] er [facility], left empyema, left for, me. 400 mL removed 06/14/2014 Goals Section No Information Health Concerns No Information MEDICAL EQUIPMENT No Information MENTAL STATUS No Information FUNCTIONAL STATUS No Information ASSESSMENTS No Information PLAN OF TREATMENT Medication Medication Name Sig Start Date Stop Date Amlodipine Besylate 5 MG TAKE ONE TABLET BY MOUTH EVERY DAY for 90 Ciprofloxacin-Dexamethasone 0.3-0.1 % 4 drps into each ear Otic Twice a day for 7 day(s) Sep, Toprol XL 25 mg 1 tablet Orally Once a day for 30 Lisinopril 10 MG 1 tablet Orally Once a day for 90 Norvasc 5 MG 1 tablet Orally Once a day for 90 day(s) Insurance Providers Payer Name Payer Address Payer Phone Insured Name Patient Relati onship to Insured Coverage Start Date Coverage End Date BCBS [employer] PPO [phone] [facility] [place] [address] LORY VASQUEZ self
--- OUTSIDE RECORDS SUMMARY | 2021-05-06 20:44 | CCD ---
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 Active confir med 855278483 Problem Family history of diabetes mellitus Z83.3 Acti ve confirmed 979216340 Problem Morbid (severe) obesity due to excess calories E66 .01 Active confirmed 486164750 Problem Contraceptive education Z30.09 Active confirmed 705705503 Problem Anxiety F41.9 Active confirmed 39759339 Problem Hx of pleural empyema Z87.09 Active confirmed 931721981 Problem Glucose intolerance E74.39 Active confirmed 2667266 Problem Body mass index (BMI) of 60.0-69.9 in adult Z68.44 Active confirmed 733347904 Problem Essential hypertension I10 Active confirmed 32276002 Problem Uncomplicated asthma, unspecified asthma severity J45.909 Active confirmed 840013641 Problem Severe sleep apnea G47.30 Active confirmed 7 0652049 Problem Type 2 diabetes mellitus wit hout complication, without long-term current use of insulin E11.9 Active confirmed 490460390 ALLERGIES No Known Allergies ENCOUNTERS from 1990 to 2021-02-21 Encounter Location Date Provider Diagnosis [place] [id number] [facility] [phone] [place] [address] 10 Feb, 2021 Blanche Tipton IMMUNIZATIONS Vaccine Route Administration Date Status Influenza [...] Question Answer Notes 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 Sexual [...] Once a day for 90 days Active Chlorthalidone 25 MG 1 tablet in the morning with food Orally Once a day for 30 day(s) Active Advair Diskus 250-50 MCG/DOSE 1 puff Inhalation Twice a day for 30 days May, Not-Taking PROCEDURES No Information RESULTS No Results REASON FOR VISIT refill MEDICAL (GENERAL) HISTORY Type Description Date Medical History 06/14/2014, Jacqueline, left t horacotomy, decorticate dictation and chemical pleurodesis for left empyema 400 mL of loculated pleural fluid removed Medical History history of hypertension Medical History morbid obesity Medical History 02/11/2017 positive methacholine challen ge study at [facility] Medical History 06/14/17 Severe Sleep Apnea, Cpap thru [facility] Medical History hsitory of cyst Surgical History [facility], left thor acotomy decortication and chemical pleurodesis 06/14/2014 Hospitalization History [facility], left empyema, left for, me. 400 [...] Orally Once a day for 90 days Lisinopril 10 MG 1 tablet Orally Once a day for 90 Norvasc 5 MG 1 tablet Orally Once a day for 90 day(s) Insurance Providers Payer Name Payer Address Payer Phone Insured Name Patient Relati onship to Insured Coverage Start Date Coverage End Date BCBS [place] KARLA PPO [id number] [facility] [place] [address] LORY VASQUEZ self
--- OUTSIDE RECORDS SUMMARY | 2021-05-06 20:44 | CCD ---
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 Active confir med 062830879 Problem Family history of diabetes mellitus Z83.3 Acti ve confirmed 034441471 Problem Morbid (severe) obesity due to excess calories E66 .01 Active confirmed 783922206 Problem Contraceptive education Z30.09 Active confirmed 334089756 Problem Anxiety F41.9 Active confirmed 97684134 Problem Hx of pleural empyema Z87.09 Active confirmed 421558895 Problem Glucose intolerance E74.39 Active confirmed 9810385 Problem Body mass index (BMI) of 60.0-69.9 in adult Z68.44 Active confirmed 384269742 Problem Essential hypertension I10 Active confirmed 83007104 Problem Uncomplicated asthma, unspecified asthma severity J45.909 Active confirmed 344632758 Problem Severe sleep apnea G47.30 Active confirmed 7 7402271 Problem Type 2 diabetes mellitus wit hout complication, without long-term current use of insulin E11.9 Active confirmed 364888972 ALLERGIES No Known Allergies ENCOUNTERS from 1990 to 2021-02-27 Encounter Location Date Provider Diagnosis [place] [address] [facility] [phone] [place] [address] Feb, Blanche Tipton IMMUNIZATIONS Vaccine Route Administration Date [...] Question Answer Notes 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 Sexual [...] Notes Start Da te End Date Status Toprol XL 25 mg 1 tablet Orally Once a day for 90 days Active Fluticasone Propionate 50 MCG/ACT 1 spray [...] a day for 7 day(s) Sep, Active CPAP Active Womens Daily Formula - 1 tab Orally bid Vitafusion Active Januvia 100 MG 1 tablet Orally Once a day for 90 days Active Norvasc 5 MG 1 tablet Orally Once a day for 90 day(s) Active Ventolin HFA 108 (90 Base) MCG/ACT 1 puff as needed Inhalation ever y 4 hrs Active Lisinopril 10 MG 1 tablet Orally Once a day for 90 Active Chlorthalidone 25 MG 1 tablet in [...] 02/11/2017 positive methacholine challen ge study at [facility] Medical History 06/14/17 Severe Sleep Apnea, Cpap thru [facility] Medical History hsitory of cyst Surgical History [facility], left thor acotomy decortication and chemical pleurodesis 06/14/2014 Hospitalization History [facility] er [facility], left empyema, left for, me. 400 mL [...] Twice a day for 7 day(s) Sep, Lisinopril 10 MG 1 tablet Orally Once a day for 90 Toprol XL 25 mg 1 tablet Orally Once a day for 90 days Norvasc 5 MG 1 tablet Orally Once a day for 90 day(s) Insurance Providers Payer Name Payer Address Payer Phone Insured Name Patient Relati onship to Insured Coverage Start Date Coverage End Date BCBS [place] KARLA PPO [phone] [facility] [place] [address] LORY VASQUEZ self
--- OUTSIDE RECORDS SUMMARY | 2021-05-06 20:44 | CCD ---
Author Author [facility] Organization [facility] Address Unknown Phone Unavailable Care Team Providers Care Blog Writer Name Role Phone Blanche Tipton Unavailable PROBLEMS ALLERGIES No Known Allergies ENCOUNTERS from 1990 to 2021-02-15 IMMUNIZATIONS SOCIAL HISTORY REASON FOR REFERRAL No Information VITAL SIGNS MEDICATIONS PROCEDURES No Information RESULTS No Results REASON FOR VISIT MEDICAL (GENERAL) HISTORY Goals Section Health Concerns MEDICAL EQUIPMENT No Information MENTAL STATUS FUNCTIONAL STATUS ASSESSMENTS PLAN OF TREATMENT Insurance Providers
--- OUTSIDE RECORDS SUMMARY | 2021-05-06 20:45 | CCD ---
Author Author [facility] Organization [facility] Address Unknown Phone Unavailable Care Team Providers Care Founder And Ceo Name Role Phone Servage, L Blanche MOP HANDLE ASSEMBLER Unavailable Unavailable Servage, L Blanche MOP HANDLE ASSEMBLER Unavailable Unavailable Servage, L Blanche MOP HANDLE ASSEMBLER Unavailable Unavailable Servage, L Blanche MOP HANDLE ASSEMBLER Unavailable Unavailable Servage, L Blanche MOP HANDLE ASSEMBLER Unavailable Unavailable Servage, L Blanche MOP HANDLE ASSEMBLER Unavailable Unavailable Servage, L Blanche MOP HANDLE ASSEMBLER Unavailable Unavailable Servage, L Blanche MOP HANDLE ASSEMBLER Unavailable Unavailable Servage, L Blanche MOP HANDLE ASSEMBLER Unavailable Unavailable Servage, L Blanche MOP HANDLE ASSEMBLER Unavailable Unavailable Servage, L Blanche MOP HANDLE ASSEMBLER Unavailable Unavailable Servage, L Blanche MOP HANDLE ASSEMBLER Unavailable Unavailable Servage, L Blanche MOP HANDLE ASSEMBLER Unavailable Unavailable Servage, L Blanche MOP HANDLE ASSEMBLER Unavailable Unavailable Servage, L Blanche MOP HANDLE ASSEMBLER Unavailable Unavailable Servage, L Blanche MOP HANDLE ASSEMBLER Unavailable Unavailable Servage, L Blanche MOP HANDLE ASSEMBLER Unavailable Unavailable Servage, L Blanche MOP HANDLE ASSEMBLER Unavailable Unavailable Servage, L Blanche MOP HANDLE ASSEMBLER Unavailable Unavailable Servage, L Blanche MOP HANDLE ASSEMBLER Unavailable Unavailable Servage, L Blanche MOP HANDLE ASSEMBLER Unavailable Unavailable Servage, L Blanche MOP HANDLE ASSEMBLER Unavailable Unavailable Servage, L Blanche MOP HANDLE ASSEMBLER Unavailable Unavailable Servage, L Blanche MOP HANDLE ASSEMBLER Unavailable Unavailable Servage, L Blanche MOP HANDLE ASSEMBLER Unavailable Unavailable Servage, L Blanche MOP HANDLE ASSEMBLER Unavailable Unavailable Servage, L Blanche MOP HANDLE ASSEMBLER Unavailable Unavailable Servage, L Blanche MOP HANDLE ASSEMBLER Unavailable Unavailable Servage, L Blanche MOP HANDLE ASSEMBLER Unavailable Unavailable Servage, L Blanche MOP HANDLE ASSEMBLER Unavailable Unavailable Servage, L Blanche MOP HANDLE ASSEMBLER Unavailable Unavailable Servage, L Blanche MOP HANDLE ASSEMBLER Unavailable Unavailable Servage, L Blanche MOP HANDLE ASSEMBLER Unavailable Unavailable Servage, L Blanche MOP HANDLE ASSEMBLER Unavailable Unavailable Servage, L Blanche MOP HANDLE ASSEMBLER Unavailable Unavailable Servage, L Blanche MOP HANDLE ASSEMBLER Unavailable Unavailable Servage, L Blanche MOP HANDLE ASSEMBLER Unavailable Unavailable Servage, L Blanche MOP HANDLE ASSEMBLER Unavailable Unavailable Servage, L Blanche MOP HANDLE ASSEMBLER Unavailable Unavailable Servage, L Blanche MOP HANDLE ASSEMBLER Unavailable Unavailable Servage, L Blanche MOP HANDLE ASSEMBLER Unavailable Unavailable Servage, L Blanche MOP HANDLE ASSEMBLER Unavailable Unavailable Servage, L Blanche MOP HANDLE ASSEMBLER Unavailable Unavailable Servage, L Blanche MOP HANDLE ASSEMBLER Unavailable Unavailable Servage, L Blanche MOP HANDLE ASSEMBLER Unavailable Unavailable Servage, L Blanche MOP HANDLE ASSEMBLER Unavailable Unavailable Servage, L Blanche MOP HANDLE ASSEMBLER Unavailable Unavailable Servage, L Blanche MOP HANDLE ASSEMBLER Unavailable Unavailable Servage, L Blanche MOP HANDLE ASSEMBLER Unavailable Unavailable Servage, L Blanche MOP HANDLE ASSEMBLER Unavailable Unavailable Servage, L Blanche MOP HANDLE ASSEMBLER Unavailable Unavailable Servage, L Blanche MOP HANDLE ASSEMBLER Unavailable Unavailable Servage, L Blanche MOP HANDLE ASSEMBLER Unavailable Unavailable Servage, L Blanche MOP HANDLE ASSEMBLER Unavailable Unavailable Servage, L Blanche MOP HANDLE ASSEMBLER Unavailable Unavailable Servage, L Blanche MOP HANDLE ASSEMBLER Unavailable Unavailable Servage, L Blanche MOP HANDLE ASSEMBLER Unavailable Unavailable Servage, L Blanche MOP HANDLE ASSEMBLER Unavailable Unavailable Servage, L Blanche MOP HANDLE ASSEMBLER Unavailable Unavailable Servage, L Blanche MOP HANDLE ASSEMBLER Unavailable Unavailable Servage, L Blanche MOP HANDLE ASSEMBLER Unavailable Unavailable Servage, L Blanche MOP HANDLE ASSEMBLER Unavailable Unavailable Servage, L Blanche MOP HANDLE ASSEMBLER Unavailable Unavailable Servage, L Blanche MOP HANDLE ASSEMBLER Unavailable Unavailable Servage, L Blanche MOP HANDLE ASSEMBLER Unavailable Unavailable LAROCK, Neisha MCKENNA MOP HANDLE ASSEMBLER Unavailable Unavailable LAROCK, Neisha MCKENNA MOP HANDLE ASSEMBLER Unavailable Unavailable LAROCK, Neisha MKCENNA MOP HANDLE ASSEMBLER Unavailable Unavailable LAROCK, Neisha MCKENNA MOP HANDLE ASSEMBLER Unavailable Unavailable LAROCK, Neisha MCKENNA MOP HANDLE ASSEMBLER Unavailable Unavailable LAROCK, Neisha MCKENNA MOP HANDLE ASSEMBLER Unavailable Unavailable LAROCK, Neisha MCKENNA MOP HANDLE ASSEMBLER Unavailable Unavailable LAROCK, J CLARISA MOP HANDLE ASSEMBLER Unavailable Unavailable LAROCK, J CLARISA MOP HANDLE ASSEMBLER Unavailable Unavailable LAROCK, J CLARISA MOP HANDLE ASSEMBLER Unavailable Unavailable LAROCK, J CLARISA MOP HANDLE ASSEMBLER Unavailable Unavailable LAROCK, J CLARISA MOP HANDLE ASSEMBLER Unavailable Unavailable LAROCK, J CLARISA MOP HANDLE ASSEMBLER Unavailable Unavailable LAROCK, J CLARISA MOP HANDLE ASSEMBLER Unavailable Unavailable LAROCK, J CLARISA MOP HANDLE ASSEMBLER Unavailable Unavailable LAROCK, J CLARISA MOP HANDLE ASSEMBLER Unavailable Unavailable LAROCK, J CLARISA MOP HANDLE ASSEMBLER Unavailable Unavailable LAROCK, J CLARISA MOP HANDLE ASSEMBLER Unavailable Unavailable LAROCK, J CLARISA MOP HANDLE ASSEMBLER Unavailable Unavailable LAROCK, J CLARISA MOP HANDLE ASSEMBLER Unavailable Unavailable LAROCK, J CLARISA MOP HANDLE ASSEMBLER Unavailable Unavailable LAROCK, J CLARISA MOP HANDLE ASSEMBLER Unavailable Unavailable ANTHONY, L RICKY MD Unavailable Unavailable ANTHONY, L RICKY MD Unavailable Unavailable ANTHONY, L RICKY MD Unavailable Unavailable ANTHONY, L RICKY MD Unavailable Unavailable ANTHONY, L RICKY MD Unavailable Unavailable ANTHONY, L RICKY MD Unavailable Unavailable ANTHONY, L RICKY MD Unavailable Unavailable ANTHONY, L RICKY MD Unavailable Unavailable ANTHONY, L RICKY MD Unavailable Unavailable ANTHONY, L RICKY MD Unavailable Unavailable ANTHONY, L RICKY MD Unavailable Unavailable ANTHONY, L RICKY MD Unavailable Unavailable ANTHONY, L RICKY MD Unavailable Unavailable ANTHONY, L RICKY MD Unavailable Unavailable ANTHONY, L RICKY MD Unavailable Unavailable ANTHONY, L RICKY MD Unavailable Unavailable ANTHONY, L RICKY MD Unavailable Unavailable ANTHONY, L RICKY MD Unavailable Unavailable ANTHONY, L RICKY MD Unavailable Unavailable ANTHONY, L RICKY MD Unavailable Unavailable Re-disclosure Warning The records that you are about to access may contain information from federally-assisted alcohol or drug abuse programs. If such information is present, then the following federally mandated warning applies: This information has been disclosed to you from records protected by federal confidentiality rules (42 CFR part 2). The federal rules prohibit you from making any further disclosure of this information unless further disclosure is expressly permitted by the written consent of the person to whom it pertains or as otherwise permitted by 42 CFR part 2. A general authorization for the release of medical or other information is NOT sufficient for this purpose. The Federal rules restrict any use of the information to criminally investigate or prosecute any alcohol or drug abuse patient.The records that you are about to access may contain highly sensitive health information, the redisclosure of which is protected by Article 27-F of the [place] Public Health law. If you continue you may have access to information: Regarding HIV / AIDS; Provided by facilities licensed or operated by the [facility] Office of Mental Health; or Provided by the [facility] Office for People With Developmental Disabilities. If such information is present, then the following [facility] mandated warning applies: This information has been disclosed to you from confidential records which are protected by state law. State law prohibits you from making any further disclosure of this information without the specific written consent of the person to whom it pertains, or as otherwise permitted by law. Any unauthorized further disclosure in violation of state law may result in a fine or chcf sentence or both. A general authorization for the release of medical or other information is NOT sufficient authorization for further disc losure. Family History Family Member Name Family Member Gender Family Member Status Date o f Status Description Data Source(s) Unknown Male Problem [facility] ([facility] Encounters Encounter Providers Location Date Indications Data Source(s ) Unknown [address] [facility] [address] 02/27/2021 12:00:00 AM EDT eCW1 ([facility]) Unknown [address] [facility] [address] 02/21/2021 12:00:00 AM EDT eCW1 ([facility]) Unknown [address] [facility] [address] 02/20/2021 12:00:00 AM EDT eCW1 ([facility]) Unknown [address] [facility] [address] 02/14/2021 12:00:00 AM EDT eCW1 ([facility]) Unknown [address] [facility] [address] 01/12/2021 12:00:00 AM EDT eCW1 ([facility]) Unknown [address] [facility] [address] 11/22/2020 12:00:00 AM EDT eCW1 ([facility]) Unknown [address] [facility] [address] 10/06/2020 12:00:00 AM EDT eCW1 ([facility]) [place] [address] [facility] [address] 09/15/2020 12:00:00 AM EST eCW1 ([facility]) [place] [address] [facility] [address] 09/14/2020 12:00:00 AM EST eCW1 ([facility]) Outpatient Attender: CLARISA CASTLE NP 08/2020 01:18:22 PM EST - 09/13/2020 02:18:42 PM EST DocuTap ([facility] ) [place] [address] [facility] [address] 08/18/2020 12:00:00 AM EST eCW1 ([facility]) [place] [address] [facility] [address] 08/08/2020 12:00:00 AM EST eCW1 ([facility]) [place] [address] [facility] [address] 08/04/2020 12:00:00 AM EST eCW1 ([facility]) [place] [address] [facility] [address] 08/03/2020 12:00:00 AM EST eCW1 ([facility]) [place] [address] [facility] [address] 07/13/2020 12:00:00 AM EST eCW1 ([facility]) [place] [address] [facility] [address] 06/30/2020 12:00:00 AM EST eCW1 ([facility]) [place] [address] [facility] [address] 06/03/2020 12:00:00 AM EST eCW1 ([facility]) [place] [address] [facility] [address] 06/01/2020 12:00:00 AM EST eCW1 ([facility]) [place] [address] [facility] [address] 05/05/2020 12:00:00 AM EDT eCW1 ([facility]) [place] [address] [facility] [address] 04/27/2020 12:00:00 AM EDT eCW1 ([facility]) Emergency Attender: RICKY CRUZ MDConsultant: Blanche Serv age MOP HANDLE ASSEMBLER 04/10/2020 12:10:00 AM EDT - 04/10/2020 06:47:00 AM EDT [facility] Patient discharged. Immunizations Vaccine Date Status Description Data Source(s) COVID-19 VACCINE Judy 10/18/2020 12:00:00 AM EDT completed [facility] Vaccine Series Complete: YESThis Data wa s Submitted to [facility] [employer] New in 2011. IIV4 04/18/2020 12:29:00 PM EDT completed eCW1 ([facility]) New in 2011. IIV4 04/18/2020 12:29:00 PM EDT completed eCW1 ([facility]) New in 2011. IIV4 04/18/2020 12:29:00 PM EDT completed eCW1 ([facility]) New in 2011. IIV4 04/18/2020 12:29:00 PM EDT completed eCW1 ([facility]) New in 2011. IIV4 04/18/2020 12:29:00 PM EDT completed eCW1 ([facility]) New in 2011. IIV4 04/18/2020 12:29:00 PM EDT completed eCW1 ([facility]) New in 2011. IIV4 04/18/2020 12:29:00 PM EDT completed eCW1 ([facility]) New in 2011. IIV4 04/18/2020 12:29:00 PM EDT completed eCW1 ([facility]) New in 2011. IIV4 04/18/2020 12:29:00 PM EDT completed eCW1 ([facility]) New in 2011. IIV4 04/18/2020 12:29:00 PM EDT completed eCW1 ([facility]) New in 2011. IIV4 04/18/2020 12:29:00 PM EDT completed eCW1 ([facility]) New in 2011. IIV4 04/18/2020 12:29:00 PM EDT completed eCW1 ([facility]) New in 2011. IIV4 04/18/2020 12:29:00 PM EDT completed eCW1 ([facility]) New in 2011. IIV4 04/18/2020 12:29:00 PM EDT completed eCW1 ([facility]) New in 2011. IIV4 04/18/2020 12:29:00 PM EDT completed eCW1 ([facility]) New in 2011. IIV4 04/18/2020 12:29:00 PM EDT completed eCW1 ([facility]) New in 2011. II4 04/18/2020 12:29:00 PM EDT completed eCW1 ([facility]) New in 2011. II4 04/18/2020 12:29:00 PM EDT completed eCW1 ([facility]) New in 2011. IIV4 04/18/2020 12:29:00 PM EDT completed eCW1 ([facility]) Medications Medication Brand Name Start Date Product Form Dose Route Admi nistrative Instructions Pharmacy Instructions Status Indications Reaction Description Data Source(s) 25 mg 02/21/2021 12:00:00 AM EDT tablet extended release 24 hr 90 TAKE ONE TABLET BY MOUTH EVERY DAY TAKE ONE TABLET BY MOUTH EVERY DAY SOLD: 02/26/2021 [facility] 5 mg 01/17/2021 12:00:00 AM EDT tablet 90 TAKE ONE TABLET BY MOUTH EVERY DAY TAKE ONE TABLET BY MOUTH EVERY DAY SOLD: 01/17/2021 [facility] 50 mg 01/17/2021 12:00:00 AM EDT tablet 45 TAKE 1 & 1/2 TABLETS BY MOUTH ONCE A DAY TAKE 1 & 1/2 TABLETS BY MOUTH ONCE A DAY SOLD: 01/17/2021 [facility] 0.75 % 12/20/2020 12:00:00 AM EDT gel 70 INSERT ONE APPLICATORFUL VAGINALLY AT BEDTIME FOR 5 DAYS INSERT ONE APPLICATORFUL VAGINALLY AT BEDTIME FOR 5 DA YS SOLD: 12/22/2020 [facility] Metronidazole 500 MG Oral Tablet METRONIDAZOLE 12/01/2020 12:0 0:00 AM EDT tablet 14 TAKE ONE TABLET BY MOUTH TWICE A DAY FOR 7 DAYS TAKE ONE TABLET BY MOUTH TWICE A DAY FOR 7 DAYS SOLD: 12/03/2020 [facility] 25 mg 11/23/2020 12:00:00 AM EDT tablet extended release 24 hr 90 TAKE ONE TABLET BY MOUTH EVERY DAY TAKE ONE TABLET BY MOUTH EVERY DAY SOLD: 11/23/2020 [facility] 50 mg 11/22/2020 12:00:00 AM EDT tablet 30 TAKE ONE TABLET BY MOUTH EVERY DAY TAKE ONE TABLET BY MOUTH EVERY DAY SOLD: 12/22/2020 [facility] 50 mg 11/22/2020 12:00:00 AM EDT tablet 30 TAKE ONE TABLET BY MOUTH EVERY DAY TAKE ONE TABLET BY MOUTH EVERY DAY SOLD: 11/23/2020 [facility] 10 mg 10/15/2020 12:00:00 AM EDT tablet 90 TAKE ONE TABLET BY MOUTH EVERY DAY TAKE ONE TABLET BY MOUTH EVERY DAY SOLD: 10/25/2020 [facility] 25 mg 10/07/2020 12:00:00 AM EDT tablet extended release 24 hr 30 TAKE ONE TABLET BY MOUTH EVERY DAY TAKE ONE TABLET BY MOUTH EVERY DAY SOLD: 10/14/2020 [facility] 0.3-0.1 % 09/29/2020 12:00:00 AM EDT drops,suspension 7 INSTILL 4 DROPS INTO EACH EAR TWICE A DAY FOR 7 DAYS INSTILL 4 DROPS INTO EACH EAR TWICE A DA Y FOR 7 DAYS SOLD: 09/29/2020 [facility] Ciprofloxacin 3 MG/ML / Dexamethasone 1 MG/ML Otic Suspension Ciprofloxacin- Dexamethasone 0.3-0.1 % Ciprofloxacin-Dexamethasone 0.3-0.1 % 09/15/2020 12:00:00 AM EST active Ciproflo xacin-Dexamethasone 0.3-0.1 % eCW1 ([facility]) Ciprofloxacin 3 MG/ML / Dexamethasone 1 MG/ML Otic Suspension Ciprofloxacin- Dexamethasone 0.3-0.1 % Ciprofloxacin-Dexamethasone 0.3-0.1 % 09/15/2020 12:00:00 AM EST active Ciproflo xacin-Dexamethasone 0.3-0.1 % eCW1 ([facility]) Ciprofloxacin 3 MG/ML / Dexamethasone 1 MG/ML Otic Suspension Ciprofloxacin- Dexamethasone 0.3-0.1 % Ciprofloxacin-Dexamethasone 0.3-0.1 % 09/15/2020 12:00:00 AM EST active e CW1 ([facility]) Ciprofloxacin 3 MG/ML / Dexamethasone 1 MG/ML Otic Suspension Ciprofloxacin- Dexamethasone 0.3-0.1 % Ciprofloxacin-Dexamethasone 0.3-0.1 % 09/15/2020 12:00:00 AM EST active Ciproflo xacin-Dexamethasone 0.3-0.1 % eCW1 ([facility]) Ciprofloxacin 3 MG/ML / Dexamethasone 1 MG/ML Otic Suspension Ciprofloxacin- Dexamethasone 0.3-0.1 % Ciprofloxacin-Dexamethasone 0.3-0.1 % 09/15/2020 12:00:00 AM EST active Ciproflo xacin-Dexamethasone 0.3-0.1 % eCW1 ([facility]) Ciprofloxacin 3 MG/ML / Dexamethasone 1 MG/ML Otic Suspension Ciprofloxacin- Dexamethasone 0.3-0.1 % Ciprofloxacin-Dexamethasone 0.3-0.1 % 09/15/2020 12:00:00 AM EST active Ciproflo xacin-Dexamethasone 0.3-0.1 % eCW1 ([facility]) Ciprofloxacin 3 MG/ML / Dexamethasone 1 MG/ML Otic Suspension Ciprofloxacin- Dexamethasone 0.3-0.1 % Ciprofloxacin-Dexamethasone 0.3-0.1 % 09/15/2020 12:00:00 AM EST active Ciproflo xacin-Dexamethasone 0.3-0.1 % eCW1 ([facility]) Ciprofloxacin 3 MG/ML / Dexamethasone 1 MG/ML Otic Suspension Ciprofloxacin- Dexamethasone 0.3-0.1 % Ciprofloxacin-Dexamethasone 0.3-0.1 % 09/15/2020 12:00:00 AM EST active Ciproflo xacin-Dexamethasone 0.3-0.1 % eCW1 ([facility]) Ciprofloxacin 3 MG/ML / Dexamethasone 1 MG/ML Otic Suspension Ciprofloxacin- Dexamethasone 0.3-0.1 % Ciprofloxacin-Dexamethasone 0.3-0.1 % 09/15/2020 12:00:00 AM EST active Ciproflo xacin-Dexamethasone 0.3-0.1 % eCW1 ([facility]) Metronidazole 500 MG Oral Tablet METRONIDAZOLE 09/08/2020 12:0 0:00 AM EST tablet 14 TAKE ONE TABLET BY MOUTH EVERY 1 2 HOURS FOR 7 DAYS TAKE ONE TABLET BY MOUTH EVERY 12 HOURS FOR 7 DAYS SOLD: 09/08/2020 [facility] 10 mg 08/10/2020 12:00:00 AM EST tablet 90 TAKE ONE TABLET BY MOUTH EVERY DAY TAKE ONE TABLET BY MOUTH EVERY DAY SOLD: 08/15/2020 [facility] Post-OP Shoe/Soft Top Women - Post-OP Shoe/Soft Top Women - 08/04/2020 12:00:00 AM EST active Post-OP Shoe/Soft Top Women - eCW1 ([facility]) Post-OP Shoe/Soft Top Women - Post-OP Shoe/Soft Top Women - 08/04/2020 12:00:00 AM EST active Post-OP Shoe/Soft Top Women - eCW1 ([facility]) Post-OP Shoe/Soft Top Women - Post-OP Shoe/Soft Top Women - 08/04/2020 12:00:00 AM EST active Post-OP Shoe/Soft Top Women - eCW1 ([facility]) Post-OP Shoe/Soft Top Women - Post-OP Shoe/Soft Top Women - 08/04/2020 12:00:00 AM EST active Post-OP Shoe/Soft Top Women - eCW1 ([facility]) Post-OP Shoe/Soft Top Women - Post-OP Shoe/Soft Top Women - 08/04/2020 12:00:00 AM EST active Post-OP Shoe/Soft Top Women - eCW1 ([facility]) Post-OP Shoe/Soft Top Women - Post-OP Shoe/Soft Top Women - 08/04/2020 12:00:00 AM EST active Post-OP Shoe/Soft Top Women - eCW1 ([facility]) Post-OP Shoe/Soft Top Women - Post-OP Shoe/Soft Top Women - 08/04/2020 12:00:00 AM EST active Post-OP Shoe/Soft Top Women - eCW1 ([facility]) Post-OP Shoe/Soft Top Women - Post-OP Shoe/Soft Top Women - 08/04/2020 12:00:00 AM EST active eCW1 ([facility]) Post-OP Shoe/Soft Top Women - Post-OP Shoe/Soft Top Women - 08/04/2020 12:00:00 AM EST active Post-OP Shoe/Soft Top Women - eCW1 ([facility]) Post-OP Shoe/Soft Top Women - Post-OP Shoe/Soft Top Women - 08/04/2020 12:00:00 AM EST active Post-OP Shoe/Soft Top Women - eCW1 ([facility]) Post-OP Shoe/Soft Top Women - Post-OP Shoe/Soft Top Women - 08/04/2020 12:00:00 AM EST active Post-OP Shoe/Soft Top Women - eCW1 ([facility]) Post-OP Shoe/Soft Top Women - Post-OP Shoe/Soft Top Women - 08/04/2020 12:00:00 AM EST active Post-OP Shoe/Soft Top Women - eCW1 ([facility]) Post-OP Shoe/Soft Top Women - Post-OP Shoe/Soft Top Women - 08/04/2020 12:00:00 AM EST active Post-OP Shoe/Soft Top Women - eCW1 ([facility]) Post-OP Shoe/Soft Top Women - Post-OP Shoe/Soft Top Women - 08/04/2020 12:00:00 AM EST active Post-OP Shoe/Soft Top Women - eCW1 ([facility]) 25 mg 07/02/2020 12:00:00 AM EST tablet extended release 24 hr 90 TAKE ONE TABLET BY MOUTH EVERY DAY TAKE ONE TABLET BY MOUTH EVERY DAY SOLD: 07/12/2020 [facility] 5 mg 06/25/2020 12:00:00 AM EST tablet 90 TAKE ONE TABLET BY MOUTH EVERY DAY TAKE ONE TABLET BY MOUTH EVERY DAY SOLD: 06/27/2020 [facility] 5 mg 06/25/2020 12:00:00 AM EST tablet 90 TAKE ONE TABLET BY MOUTH EVERY DAY TAKE ONE TABLET BY MOUTH EVERY DAY SOLD: 10/14/2020 [facility] 10 mg 04/27/2020 12:00:00 AM EDT tablet 90 TAKE ONE TABLET BY MOUTH EVERY DAY TAKE ONE TABLET BY MOUTH EVERY DAY SOLD: 05/02/2020 [facility] 100 mg 04/27/2020 12:00:00 AM EDT tablet 90 TAKE ONE TABLET BY MOUTH EVERY DAY TAKE ONE TABLET BY MOUTH EVERY DAY SOLD: 05/02/2020 [facility] Lisinopril 10 MG Oral Tablet Lisinopril 10 MG 04/27/2020 12:00:00 A M EDT 1.0 {tablet} active Lisinopril 10 MG eCW1 ( [facility]) 5 mg 04/06/2020 12:00:00 AM EDT tablet 90 TAKE ONE TABLET BY MOUTH EVERY DAY TAKE ONE TABLET BY MOUTH EVERY DAY SOLD: 04/06/2020 [facility] 25 mg 04/06/2020 12:00:00 AM EDT tablet extended release 24 hr 90 TAKE ONE TABLET BY MOUTH EVERY DAY TAKE ONE TABLET BY MOUTH EVERY DAY SOLD: 04/06/2020 [facility] Insurance Providers Payer name Policy type / Coverage type Policy ID Covered green party ID Covered green party's relationship to robert Policy Robert Plan Information [facility] Community Plan Commercial [id number] Self [id number] [facility] COMMUNITY PLAN [facility] [id number] SP [id number] [facility] Blue Cross and Blue Shield - [place] Blue Cross/B lue Shield [id number] Self [id number] [place] Med[place] Part B [id number] Self [id number] [facility] COMMUNITY [facility]AN [facility] [id number] SP [id number] [facility] COMM[facility]AN [facility] [id number] SP [id number] Medicaid [place] Medigap Part B [id number] Self [id number] ANSI-Medicaid [id number] ANSI-Medicaid [id number] ANSI-Medicaid [id number] ANSI-Medicaid [id number] ANSI-Medicaid [id number] ANSI-Not a Secondary Insurance [id number] ANSI-Not a Secondary Insurance [id number] ANSI-Medicaid [id number] ANSI-Not a Secondary Insurance [id number] ANSI-Medicaid [id number] ANSI-Medicaid [id number] ANSI-Not a Secondary Insurance [id number] ANSI-Not a Secondary Insurance [id number] ANSI-Medicaid [id number] [facility] O [id number] S [id number] SELF PAY ONLY [id number] MEDICAID [id number] SP [id number] SELF PAY ONLY [id number] SP [id number] SELF PAY ONLY UNAVAILABLE UNAV AILABLE O UNAVAILABLE UNAVAILA BLE [employer] BCBS FEDERAL [id number] SP [id number] [place] P[place] [phone] [id number] SP [id number] SELF PAY UNAVAILABLE SP UNAVAILA BLE EXCELLUS BCBS B [id number] S VYS [id number] [place] O 302/307 [id number] SP [id number] Problems, Conditions, and Diagnoses Code Display Name Description Problem Type Effective Dates Data Source(s) I10 Essential (primary) hypertension Essential (primary) h ypertension Diagnosis 04/10/2020 12:10:00 AM EDT [facility] R0789 Other chest pain Other chest pain Diagnosis 04/10/2020 12 :10:00 AM EDT [facility] E74.39 Impaired glucose tolerance Glucose intolerance Problem 08/18/2020 12:00:00 AM EST eCW1 ([facility]) F41.9 [id number] Anxiety Problem 04/27/2020 12:00:00 AM ED T eCW1 ([facility]) Surgeries/Procedures No Information Results ID Date Data Source [id number] 05/04/2021 06:09:00 AM EDT [facility] Name Value Range Interpretation Code Description Data Lanny rce(s) Supporting Document(s) SARS coronavirus 2 RNA [Presence] in Res piratory specimen by SANDY with probe detection NEGATIVE [facility] This lab was ordered by [facility] a nd reported by [facility]. ID Date Data Source [id number] 05/02/2021 12:00:00 AM EDT [facility] Name Value Range Interpretation Code Description Data Lanny rce(s) Supporting Document(s) SARS coronavirus 2 Ag NEGATIVE [facility] This lab was ordered by [facility] and reported by [facility]. ID Date Data Source [id number] 04/18/2021 12:00:00 AM EDT [facility] Name Value Range Interpretation Code Description Data Lanny rce(s) Supporting Document(s) SARS coronavirus 2 Ag NEGATIVE [facility] This lab was ordered by [facility] and reported by [facility]. ID Date Data Source [id number] 04/04/2021 12:00:00 AM EDT [facility] Name Value Range Interpretation Code Description Data Lanny rce(s) Supporting Document(s) SARS coronavirus 2 Ag NEGATIVE [facility] This lab was ordered by [facility] and reported by [facility]. ID Date Data Source [id number] 03/23/2021 12:00:00 AM EDT [facility] Name Value Range Interpretation Code Description Data Lanny rce(s) Supporting Document(s) SARS coronavirus 2 Ag NEGATIVE [facility] This lab was ordered by [facility] and reported by [facility]. ID Date Data Source [id number] 12/20/2020 12:00:00 AM EDT [facility] Name Value Range Interpretation Code Description Data Lanny rce(s) Supporting Document(s) SARS coronavirus 2 Ag NEGATIVE [facility] This lab was ordered by [facility] and reported by [facility]. ID Date Data Source [id number] 12/13/2020 12:00:00 AM EDT [facility] Name Value Range Interpretation Code Description Data Lanny rce(s) Supporting Document(s) SARS coronavirus 2 Ag NEGATIVE [facility] This lab was ordered by [facility] and reported by [facility]. ID Date Data Source [id number] 12/08/2020 12:00:00 AM EDT [facility] Name Value Range Interpretation Code Description Data Lanny rce(s) Supporting Document(s) SARS coronavirus 2 Ag NEGATIVE [facility] This lab was ordered by [facility] and reported by [facility]. ID Date Data Source [id number] 12/06/2020 12:00:00 AM EDT [facility] Name Value Range Interpretation Code Description Data Lanny rce(s) Supporting Document(s) SARS coronavirus 2 Ag NEGATIVE [facility] This lab was ordered by [facility] and reported by [facility]. ID Date Data Source [id number] 11/30/2020 12:00:00 AM EDT [facility] Name Value Range Interpretation Code Description Data Lanny rce(s) Supporting Document(s) SARS-CoV2 Rapid Antigen Negative [facility] This lab was ordered by [facility] and reported by [facility]. ID Date Data Source [id number] 11/24/2020 12:00:00 AM EDT [facility] Name Value Range Interpretation Code Description Data Lanny rce(s) Supporting Document(s) SARS coronavirus 2 Ag NEGATIVE [facility] This lab was ordered by [facility] and reported by [facility]. ID Date Data Source [id number] 11/22/2020 12:00:00 AM EDT [facility] Name Value Range Interpretation Code Description Data Lanny rce(s) Supporting Document(s) SARS coronavirus 2 Ag NEGATIVE [facility] This lab was ordered by [facility] and reported by [facility]. ID Date Data Source [id number] 11/14/2020 12:00:00 AM EDT [facility] Name Value Range Interpretation Code Description Data Lanny rce(s) Supporting Document(s) SARS coronavirus 2 Ag NEGATIVE [facility] This lab was ordered by [facility] and reported by [facility]. ID Date Data Source [id number] 11/10/2020 12:00:00 AM EDT [facility] Name Value Range Interpretation Code Description Data Lanny rce(s) Supporting Document(s) SARS coronavirus 2 Ag NEGATIVE [facility] This lab was ordered by [facility] and reported by [facility]. ID Date Data Source [id number] 10/31/2020 03:28:00 PM EDT [facility] Name Value Range Interpretation Code Description Data Lanny rce(s) Supporting Document(s) SARS-CoV-2 (COVID-19) RNA [Presence] in Respiratory specimen by SANDY with probe detection Not Detected [facility] This lab was ordered by [facility] and reported by [employer]. ID Date Data Source [id number] 10/26/2020 12:00:00 AM EDT [facility] Name Value Range Interpretation Code Description Data Lanny rce(s) Supporting Document(s) SARS-CoV2 Rapid Antigen Negative [facility] This lab was ordered by [facility] and reported by [facility]. ID Date Data Source [id number] 10/22/2020 12:00:00 AM EDT [facility] Name Value Range Interpretation Code Description Data Lanny rce(s) Supporting Document(s) SARS-CoV2 Rapid Antigen Negative [facility] This lab was ordered by [facility] and reported by [facility]. ID Date Data Source [id number] 10/17/2020 03:18:00 PM EDT [facility] Name Value Range Interpretation Code Description Data Lanny rce(s) Supporting Document(s) SARS-CoV-2 (COVID-19) RNA [Presence] in Respiratory specimen by SANDY with probe detection Not Detected [facility] This lab was ordered by [facility] and reported by [employer] ID Date Data Source [id number] 10/13/2020 12:00:00 AM EDT [facility] Name Value Range Interpretation Code Description Data Lanny rce(s) Supporting Document(s) SARS coronavirus 2 Ag NEGATIVE [facility] This lab was ordered by [facility] and reported by [facility] [email or web address] [place]. ID Date Data Source [id number] 10/10/2020 07:00:00 AM EDT [facility] Name Value Range Interpretation Code Description Data Lanny rce(s) Supporting Document(s) SARS coronavirus 2 RNA Not Detected [facility] This lab was ordered by [facility] and reported by [facility]. ID Date Data Source [id number] 10/06/2020 12:00:00 AM EDT [facility] Name Value Range Interpretation Code Description Data Lanny rce(s) Supporting Document(s) SARS coronavirus 2 Ag NEGATIVE [facility] This lab was ordered by [facility] and reported by [facility]. ID Date Data Source [id number] 10/04/2020 11:00:00 AM EDT [facility] Name Value Range Interpretation Code Description Data Lanny rce(s) Supporting Document(s) SARS coronavirus 2 RNA Not Detected [facility] This lab was ordered by [facility] and reported by [facility]. ID Date Data Source [id number] 09/29/2020 12:00:00 AM EDT [facility] Name Value Range Interpretation Code Description Data Lanny rce(s) Supporting Document(s) SARS coronavirus 2 Ag NEGATIVE [facility] This lab was ordered by [facility] and reported by [facility]. ID Date Data Source [id number] 09/26/2020 02:00:00 PM EDT [facility] Name Value Range Interpretation Code Description Data Lanny rce(s) Supporting Document(s) SARS coronavirus 2 RNA Not Detected [facility] This lab was ordered by [facility] and reported by [facility]. ID Date Data Source [id number] 09/22/2020 12:00:00 AM EST [facility] Name Value Range Interpretation Code Description Data Lanny rce(s) Supporting Document(s) SARS coronavirus 2 Ag NEGATIVE [facility] This lab was ordered by [facility] and reported by [facility]. ID Date Data Source [id number] 09/19/2020 03:00:00 PM EST [facility] Name Value Range Interpretation Code Description Data Lanny rce(s) Supporting Document(s) SARS coronavirus 2 RNA Not Detected [facility] This lab was ordered by [facility] and reported by [facility]. ID Date Data Source [id number] 09/15/2020 12:00:00 AM EST [facility] Name Value Range Interpretation Code Description Data Lanny rce(s) Supporting Document(s) SARS coronavirus 2 Ag NEGATIVE [facility] This lab was ordered by [facility] and reported by [facility]. ID Date Data Source [id number] 09/12/2020 12:01:00 PM EST [facility] Name Value Range Interpretation Code Description Data Lanny rce(s) Supporting Document(s) SARS coronavirus 2 RNA Not Detected [facility] This lab was ordered by [facility] and reported by [facility]. ID Date Data Source [id number] 09/08/2020 12:00:00 AM EST [facility] Name Value Range Interpretation Code Description Data Lanny rce(s) Supporting Document(s) SARS coronavirus 2 Ag NEGATIVE [facility] This lab was ordered by [facility] and reported by [facility]. ID Date Data Source [id number] 09/05/2020 03:00:00 PM EST [facility] Name Value Range Interpretation Code Description Data Lanny rce(s) Supporting Document(s) SARS coronavirus 2 RNA Not Detected [facility] This lab was ordered by [facility] and reported by [facility]. ID Date Data Source [id number] 09/01/2020 12:00:00 AM EST [facility] Name Value Range Interpretation Code Description Data Lanny rce(s) Supporting Document(s) SARS coronavirus 2 Ag NEGATIVE [facility] This lab was ordered by [facility] and reported by [facility]. ID Date Data Source [id number] 08/29/2020 02:56:00 PM EST [facility] Name Value Range Interpretation Code Description Data Lanny rce(s) Supporting Document(s) SARS coronavirus 2 RNA Not Detected [facility] This lab was ordered by [facility] and reported by [facility]. ID Date Data Source [id number] 08/25/2020 12:00:00 AM EST [facility] Name Value Range Interpretation Code Description Data Lanny rce(s) Supporting Document(s) SARS coronavirus 2 Ag NEGATIVE [facility] This lab was ordered by [facility] and reported by [facility]. ID Date Data Source [id number] 08/22/2020 02:00:00 PM EST [facility] Name Value Range Interpretation Code Description Data Lanny rce(s) Supporting Document(s) SARS coronavirus 2 RNA Not Detected [facility] This lab was ordered by [facility] and reported by [facility]. ID Date Data Source [id number] 08/18/2020 12:00:00 AM EST [facility] Name Value Range Interpretation Code Description Data Lanny rce(s) Supporting Document(s) SARS coronavirus 2 Ag [facility] This lab was ordered by [facility] and reported by [facility]. ID Date Data Source [id number] 08/15/2020 06:00:00 AM EST [facility] Name Value Range Interpretation Code Description Data Lanny rce(s) Supporting Document(s) SARS coronavirus 2 RNA Not Detected [facility] This lab was ordered by [facility] and reported by [facility]. ID Date Data Source [id number] 08/11/2020 12:00:00 AM EST [facility] Name Value Range Interpretation Code Description Data Lanny rce(s) Supporting Document(s) SARS coronavirus 2 Ag NEGATIVE [facility] This lab was ordered by [facility] and reported by [facility]. ID Date Data Source [id number] 08/08/2020 02:00:00 PM EST [facility] Name Value Range Interpretation Code Description Data Lanny rce(s) Supporting Document(s) SARS coronavirus 2 RNA Not Detected [facility] This lab was ordered by [facility] and reported by [facility]. ID Date Data Source [id number] 08/04/2020 12:00:00 AM EST [facility] Name Value Range Interpretation Code Description Data Lanny rce(s) Supporting Document(s) SARS coronavirus 2 Ag Negative [facility] This lab was ordered by [facility] and reported by [facility]. ID Date Data Source PLZ FOOT COMPLETE 08/03/2020 12:00:00 AM EST eCW1 ([facility]) Name Value Range Interpretation Code Description Data Lanny rce(s) Supporting Document(s) PLZ FOOT COMPLETE eCW1 ([facility]) ID Date Data Source [id number] 08/01/2020 03:00:00 PM EST [facility] Name Value Range Interpretation Code Description Data Lanny rce(s) Supporting Document(s) SARS coronavirus 2 RNA Not Detected [facility] This lab was ordered by [facility] and reported by [facility]. ID Date Data Source [id number] 07/28/2020 12:00:00 AM EST [facility] Name Value Range Interpretation Code Description Data Lanny rce(s) Supporting Document(s) SARS-CoV2 Rapid Antigen Negative [facility] This lab was ordered by [facility] and reported by [facility]. ID Date Data Source [id number] 07/25/2020 03:00:00 PM EST [facility] Name Value Range Interpretation Code Description Data Lanny rce(s) Supporting Document(s) SARS coronavirus 2 RNA Not Detected [facility] This lab was ordered by [facility] and reported by [facility]. ID Date Data Source [id number] 07/21/2020 11:17:00 AM EST [facility] Name Value Range Interpretation Code Description Data Lanny rce(s) Supporting Document(s) SARS coronavirus 2 RNA Not Detected [facility] This lab was ordered by [facility] and reported by [facility]. ID Date Data Source [id number] 07/13/2020 09:15:00 AM EST [facility] Name Value Range Interpretation Code Description Data Lanny rce(s) Supporting Document(s) SARS coronavirus 2 RNA [Presence] in Res piratory specimen by SANDY with probe detection [facility] This lab was ordered by [facility] a nd reported by [facility]. ID Date Data Source [id number] 07/13/2020 12:00:00 AM EST [facility] Name Value Range Interpretation Code Description Data Lanny rce(s) Supporting Document(s) SARS-CoV2 Rapid Antigen [facility] This lab was ordered by [facility] and reported by [facility]. ID Date Data Source [id number] 07/11/2020 02:30:00 PM EST [facility] Name Value Range Interpretation Code Description Data Lanny rce(s) Supporting Document(s) SARS coronavirus 2 RNA [facility] This lab was ordered by [facility] and reported by [facility]. ID Date Data Source [id number] 07/04/2020 02:13:00 PM EST [facility] Name Value Range Interpretation Code Description Data Lanny rce(s) Supporting Document(s) SARS coronavirus 2 RNA [facility] This lab was ordered by [facility] and reported by [facility]. ID Date Data Source [id number] 06/27/2020 12:14:00 PM EST [facility] Name Value Range Interpretation Code Description Data Lanny rce(s) Supporting Document(s) SARS coronavirus 2 RNA [facility] This lab was ordered by [facility] and reported by [facility]. ID Date Data Source [id number] 06/20/2020 12:43:00 PM EST [facility] Name Value Range Interpretation Code Description Data Lanny rce(s) Supporting Document(s) SARS coronavirus 2 RNA [facility] This lab was ordered by [facility] and reported by [facility]. ID Date Data Source [id number] 06/13/2020 02:16:00 PM EST [facility] Name Value Range Interpretation Code Description Data Lanny rce(s) Supporting Document(s) SARS coronavirus 2 RNA [facility] This lab was ordered by [facility] and reported by [facility]. ID Date Data Source [id number] 06/10/2020 12:00:00 AM EST [facility] Name Value Range Interpretation Code Description Data Lanny rce(s) Supporting Document(s) SARS-CoV2 Rapid Antigen [facility]. ID Date Data Source [id number] 06/06/2020 09:00:00 AM EST [facility] Name Value Range Interpretation Code Description Data Lanny rce(s) Supporting Document(s) SARS coronavirus 2 RNA [facility] This lab was ordered by [facility] and reported by [facility]. ID Date Data Source [id number] 05/30/2020 11:09:00 AM EST [facility] Name Value Range Interpretation Code Description Data Lanny rce(s) Supporting Document(s) SARS coronavirus 2 RNA [facility] This lab was ordered by [facility] and reported by [facility]. ID Date Data Source [id number] 05/23/2020 02:15:00 PM EST [facility] Name Value Range Interpretation Code Description Data Lanny rce(s) Supporting Document(s) SARS coronavirus 2 RNA [facility] This lab was ordered by [facility] and reported by [facility]. ID Date Data Source [id number] 05/16/2020 05:30:00 AM EST [facility] Name Value Range Interpretation Code Description Data Lanny rce(s) Supporting Document(s) SARS coronavirus 2 RNA [facility] This lab was ordered by [facility] and reported by [facility]. ID Date Data Source [id number] 05/12/2020 01:56:00 PM EDT [facility] Name Value Range Interpretation Code Description Data Lanny rce(s) Supporting Document(s) SARS coronavirus 2 RNA [facility] This lab was ordered by [facility] and reported by [facility]. ID Date Data Source [id number] 05/02/2020 07:30:00 AM EDT [facility] Name Value Range Interpretation Code Description Data Lanny rce(s) Supporting Document(s) SARS coronavirus 2 RNA [facility] This lab was ordered by [facility] and reported by [facility]. ID Date Data Source [id number] 04/18/2020 02:00:00 PM EDT [facility] Name Value Range Interpretation Code Description Data Lanny rce(s) Supporting Document(s) SARS coronavirus 2 RNA [facility] This lab was ordered by [facility] and reported by [facility]. ID Date Data Source [id number] 04/14/2020 02:50:00 PM EDT [facility] Name Value Range Interpretation Code Description Data Lanny rce(s) Supporting Document(s) SARS coronavirus 2 RNA [facility] This lab was ordered by [facility] and reported by [facility]. ID Date Data Source PLZ PLZ DUPLEX EXT LOWER VEINS UNILAT 04/13/2020 09:01:47 AM EDT eCW1 ([facility]) Name Value Range Interpretation Code Description Data Lanny rce(s) Supporting Document(s) PLZ PLZ DUPLEX EXT LOWER VEINS UNILAT eCW1 ([facility]) ID Date Data Source [id number] 04/10/2020 12:10:00 AM EDT [facility] 1 OrderSheet [facility] Emergency Department [address] [place] [address] Phone #: ext- [phone] 04/10/2020 00:09 Patient: LORY RIVERA Sex: F : 1990 Age: 30yWEIGHT:174.1 kg (M) HEIGHT:64 inches (S) BMI:65.9ALLERGIES: No Known Drug AllergyCHIEF COMPLAINT: chest painDIAGNOSIS: Chest pain, Hypertensive disorderLAB ORDERSOrder Description Priority Entered Acknowledged InitialedTroponin-T STAT 00:59 0 04/10/2020 01:20 Anthony Austin Norma MD; Lopez RobertsonD-Dimer STAT 01:13 04/10/2020 01:21 Anthony Austin Norma MD; Lopez RobertsonD-Dimer (Sched STAT 04:00 04/10/2020 Cancelled: Duplicate Order 05:52 Lindsey,06:00 04/10/2020) Nora Portillo R.N.; Nora Robertson Verbal order per; Ricky Cruz MDD-Dimer STAT 05:52 04/10/2020 05:53 Lindsey Portillo Melissa R.N.; Nora Robertson Verbal order per; Ricky Cruz MDDIAGNOSTIC STUDY ORDERSOrder Description Priority Entered Acknowledged InitialedCT CTA CHEST STAT 01:43 04/10/2020 Cancelled: Physician Order 06:39 Lindsey,(NONCOR) Ricky Allison MD; Nora RobertsonINC PP(Oxygen?(No))(IV?(Yes)) NOTES: GFR >60 from [facility] on 04/09/20 at 19:50, negative hcg yesterday Reason for Study: elevated d-dimerMEDICATION/IV/DRIP/FLUID ORDERSOrder Description Priority Entered Acknowledged InitialedGENERAL ORDERSOrder Description Priority Entered Acknowledged InitialedEKG 00:27 04/10/2020 01:13 Anthony Austin Norma MD; Lopez Robertson 2 OrderSheet [facility] Emergency Department [address] [place] [address] Phone #: ext- [phone] 04/10/2020 00:09 Patient: LORY RIVERA Sex: F : 1990 Age: 30y[Electronically signed by Lopez Austin R.N. (06:58 04/10/2020)][Electronically signed by Ricky Cruz MD (16:05 04/12/2020)][Electronically locked by Lopez Austin R.N. (06:58 04/10/2020)] Name Value Range Interpretation Code Description Data Lanny rce(s) Supporting Document(s) ID Date Data Source [id number] 04/10/2020 12:10:00 AM EDT [facility] 1 Medication Reconciliation Report [facility] Emergency Department [address] [place] [address] Phone #: ext- [phone] 04/10/2020 00:09 Patient: LORY RIVERA Sex: F : 1990 Age: 30yWeight: 174.1 kgHeight/Length: 64 in.BMI: 65.9ALLERGIES: No Known Drug AllergyThe patient's Home Medications are listed below:CONTINUE TAKING THE FOLLOWING MEDICATIONS: Amlodi LopressorThe source(s) of the original Home Medication information:patientThe following Medications were given to the patient in the Emergency Department:None.The following Medications were prescribed to the patient:None. Name Value Range Interpretation Code Description Data Lanny rce(s) Supporting Document(s) ID Date Data Source [id number] 04/10/2020 12:10:00 AM EDT [facility] 1 Medication Administration Record [facility] Emergency Department [address] [place] [address] Phone #: ext- [phone] 00:09 Patient: LORY RIVERA Sex: F : 1990 Age: 30yWeight: 174.1 kgHeight/Length: 64 inBMI: 65.9ALLERGIES: No Known Drug AllergyDate/Time Medication Administered Medication Ordered Name Value Range Interpretation Code Description Data Lanny rce(s) Supporting Document(s) ID Date Data Source [id number] 04/10/2020 12:10:00 AM EDT [facility] 1 General Instructions [facility] Emergency Department [address] [place] [address] Phone #: ext- [phone] 04/10/2020 00:09 Patient: LORY RIVERA Sex: F : 1990 Age: 30yChest pain.Hypertension.INSTRUCTIONSNo strenuous activity. Do not work for two days.(You may take tylenol and motrin for pain. follow up with your primary care physician. return if worse orany new symptoms. Please take your blood pressure medications. I am very worried that if you do nottend to your blood pressure you may end up with kidney failure and ultimately be on dailysis. discuss withyour doctor.).Warnings: Further evaluation is necessary.GENERAL WARNINGS: Return or contact your physician immediately if your condition worsens orchanges unexpectedly, if not improving as expected, or if other problems arise.Your Current Medications: Your current home medications have been review ed.CONTINUE TAKING THE FOLLOWING MEDICATIONS:Amlodi*.Lopressor*.Understanding of the discharge instructions verbalized by patient. ADDITIONAL INFORMATIONUncertain Causes of Chest Pain 2 General Instructions [facility] Emergency Department [address] [place] [address] Phone #: ext- [phone] 04/10/2020 00:09 Patient: LORY RIVERA Sex: F : 1990 Age: 30yChest pain can happen for a number of reasons. Sometimes the cause can't be determined . Ifyour condition does not seem serious, and your pain does not appear to be coming from your heart,your healthcare provider may recommend watching it closely. Sometimes the signs of a seriousproblem take more time to appear. Many problems not related to your heart can cause chest pain.These include: Musculoskeletal. Costochondritis is an inflammation of the tissues around the ribs that can occur from trauma or overuse injuries, or a strain of the muscles of the chest wall Respiratory. Pneumonia, collapsed lung (pneumothorax), or inflammation of the lining of the chest and lungs (pleuri sy) Gastrointestinal. Esophageal reflux, heartburn, ulcers, or gallbladder disease Anxiety and panic disorders Nerve compression and inflammation Rare miscellaneous problems such as aortic aneurysm (a swelling of the large artery coming out of the heart) or pulmonary embolism (a blood clot in the lungs)Home careAfter your visit, follow these recommendations: Rest today and avoid strenuous activity. 3 General Instructions [facility] Emergency Department [address] [place] [address] Phone #: ext- [phone] 04/10/2020 00:09 Patient: LORY RIVERA Sex: F : 1990 Age: 30y Take any prescribed medicine as directed. Be aware of any recurrent chest pain and notice any changesFollow-up careFollow up with your healthcare provider if you do not start to feel better within 24 hours, or as advised.Call [phone] if any of these occur: A change in the type of pain: if it feels different, becomes more severe, lasts longer, or begins to spread into your shoulder, arm, neck, jaw or back Shortness of breath or increased pain with breathing Weakness, dizziness, or fainting Rapid heart beat Crushing sensation in your chestWhen to seek medical adviceCall your healthcare provider right away if any of the following occur: Cough with dark colored sputum (phlegm) or blood Fever of 100.4F (38C) or higher, or as directed by your healthcare provider Swelling, pain or redness in one leg [id number] [employer]. [address] [place] [address], [place] [address]. All rights reserved. This information is not intended as asubstitute for professional medical care. Always follow your healthcare professional's instructions.Established High Blood Pressure 4 General Instructions [facility] Emergency Department [address] [place] [address] Phone #: ext- [phone] 04/10/2020 00:09 Patient: LORY RIVERA Sex: F : 1990 Age: 30y High blood pressure (hypertension) is a chronic disease.Often, healthcare providers don't know what causes it. But it can be caused by certain healthconditions and medicines.If you have high blood pressure, you may not have any symptoms. If you do have symptoms, theymay include headache, dizziness, changes in your vision, chest pain, and shortness of breath. Buteven without symptoms, high blood pressure that's not treated raises your risk for heart attack, heartfailure, and stroke. High blood pressure is a serious health risk and shouldn't be ignored.Blood pressure measurements are given as 2 numbers. Systolic blood pressure is the upper number.This is the pressure when the heart contracts. Diastolic blood pressure is the lower number. This isthe pressure when the heart relaxes between beats. You will see your blood pressure readingswritten together. For example, a person with a systolic pressure of 118 and a diastolic pressure of 78will have 118/78 written in the medical record.Blood pressure is categorized as normal, elevated, or stage 1 or stage 2 high blood pressure: Normal blood pressure is systolic of less than 120 and diastolic of less than 80 (120/80) Elevated blood pressure is systolic of 120 to 129 and diastolic less than 80 Stage 1 high blood pressure is systolic is 130 to 139 or diastolic between 80 to 89 Stage 2 high blood pressure is when systolic is 140 or higher or the diastolic is 90 or higherHome careIf you have high blood pressure, follow these home care guidelines to help lower your blood pressure.If you are taking medicines for high blood pressure, these methods may reduce or end your need for 5 General Instructions [facility] Emergency Department [address] [place] [address] Phone #: ext- [phone] 04/10/2020 00:09 Patient: LORY RIVERA Sex: F : 1990 Age: 30ymedicines in the future. Start a weight-loss program if you are overweight. Cut back on how much salt you get in your diet. Here's how to do this: o Don't eat foods that have a lot of salt. These include olives, pickles, smoked meats, and salted potato chips. o Don't add s alt to your food at the table. o Use only small amounts of salt when cooking. Start an exercise program. Talk with your healthcare provider about the type of exercise program that would be best for you. It doesn't have to be hard. Even brisk walking for 20 minutes 3 times a week is a good form of exercise. Don't take medicines that stimulate the heart. This includes many kcby-oxn-jrtnvll cold and sinus decongestant pills and sprays, as well as diet pills. Check the warnings about high blood pressure on the label. Before buying any cdkf-cxu-phomzwe medicines or supplements, always ask the pharmacist about the product's potential interaction with your high blood pressure and your high blood pressure medicines. Stimulants such as amphetamine or cocaine could be deadly for someone with high blood pressure. Never take these. Limit how much caffeine you get in your diet. Switch to caffeine-free products. Stop smoking. If you are a long-time smoker, this can be hard. Talk to your healthcare provider about medicines and nicotine replacement options to help you. Also, enroll in a stop-smoking program to make it more likely that you will quit for good. Learn how to handle stress. This is an important part of any program to lower blood pressure. Learn about relaxation methods like meditation, yoga, or biofeedback. If your provider prescribed medicines, take them exactly as directed. Missing doses may cause your blood pressure get out of control. If you miss a dose or doses, check with your healthcare provider or pharmacist about what to do. Consider buying an automatic blood pressure machine to check your blood pressure at home. Ask your provider for a recommendation. You can get one of these at most pharmacies.The [place] [employer] recommends the following guidelines for home blood pressuremonitorin General Instructions [facility] Emergency Department [address] [place] [address] Phone #: ext- [phone] 04/10/2020 00:09 Patient: LORY RIVERA Sex: F : 1990 Age: 30y Don't smoke or drink coffee for 30 minutes before taking your blood pressure. Go to the bathroom before the test. Relax for 5 minutes before taking the measurement. Sit with your back supported (don't sit on a couch or soft chair); keep your feet on the floor uncrossed. Place your arm on a solid flat surface (like a table) with the upper part of the arm at heart level. Place the middle of the cuff directly above the bend of the elbow. Check the monitor's instruction manual for an illustration. Take multiple readings. When you measure, take 2 to 3 readings one minute apart and record all of the results. Take your blood pressure at the same time every day, or as your healthcare provider recommends. Record the date, time, and blood pressure reading. Take the record with you to your next medical appointment. If your blood pressure monitor has a built- in memory, simply take the monitor with you to your next appointment. Call your provider if you have several high readings. Don't be frightened by a single high blood pressure reading, but if you get several high readings, check in with your healthcare provider. Note: When blood pressure reaches a systolic (top number) of 180 or higher OR diastolic (bottom number) of 110 or higher, seek emergency medical treatment.Follow-up careYou will need to see your healthcare provider regularly. This is to check your blood pressure and tomake changes to your medicines. Make a follow-up appointment as directed. Bring the record of yourhome blood pressure readings to the appointment.When to seek medical adviceCall your healthcare provider right away if any of these occur: Blood pressure reaches a systolic (upper number) of 180 or higher OR a diastolic (bottom number) of 110 or higher Chest pain or shortness of breath Severe headache Throbbing or rushing sound in the ears 7 General Instructions [facility] Emergency Department [address] [place] [address] Phone #: ext- [phone] 04/10/2020 00:09 Patient: LORY RIVERA Sex: F : 1990 Age: 30y Nosebleed Sudden severe pain in your belly (abdomen) Extreme drowsiness, confusion, or fainting Dizziness or spinning sensation (vertigo) Weakness of an arm or leg or one side of the face You have problems speaking or seeing [phone] [employer]. [address] [place] [address], [place] [address]. All rights reserved. This information is not intended as asubstitute for professional medical care. Always follow your healthcare professional's instructions. You have been given the following additional information: Chest Pain, Uncertain Cause Hypertension, Established No strenuous activity. Do not work for two days.(Electronically signed by Anthony, Ricky, MD 04/12/2020 16:05) Name Value Range Interpretation Code Description Data Lanny rce(s) Supporting Document(s) ID Date Data Source [id number] 04/10/2020 12:10:00 AM EDT [facility] 1 Clinical Report - Nurses [facility] Emergency Department [address] [place] [address] Phone #: [phone] ext- [phone] 04/10/2020 00:09 Patient: LORY RIVERA Sex: F : 1990 Age: 30yTRIAGEArrived by private vehicle. Historian: patient.Triage time: 00:15 04/10/2020. Acuity: LEVEL 3.Chief Complaint: (chest pressure).Alert. No acute distress.Onset. (tonight). No fever, weakness, cough, difficulty breathing or skin rash. 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 BP: 135/82 taken on the right arm, while lying. MAP: 99. HR: 79 (regular, normal rate andstrong). RR: 20 (regular, unlabored and normal). O2 saturation: 96% on room air. Temp: 98.8 F (oral). Painlevel now: 0/10. --00:04/10/20 Milagros Casarez RN.Weight: 174.1 kg measured. Height/Length: 64 inches Per Patient. BMI: 65.9. --00:22 04/10/20 NESHA Ramos.MedicationsLopressor. --00:17 04/10/20 Milagros Casarez RN Amlodi. --00:17 04/10/20 Milagros Casarez RN.AllergiesNo Known Drug Allergy. --00:17 04/10/20 Milagros Casarez RN.Medication/allergy information source: the patient. --00:26 04/10/20 Milagros Casarez RN.HistoryPAST MEDICAL HX: Hyper tension. No history of diabetes mellitus, heart disease or lung disease.Immunizations: up-to-date. Last normal menstrual period- at present. Denies current . Lastoral intake by patient was (4:30 pm).SURGERY HX: ( chest tube).SOCIAL HX: Never smoker. Alcohol use. (occationally). No drug use. She was offered HIV testing butdeclined (- diagnosed). She was offered hepatitis C testing but declined (- diagnosed). She has nottraveled outside the [place]Infectious disease exposure: (no). 2 Clinical Report - Nurses [facility] Emergency Department [address] [place] [address] Phone #: ext- [phone] 04/10/2020 00:09 Patient: LORY RIVERA Sex: F : 1990 Age: 30y SELF HARM ASSESSMENT: Self harm assessment was performed. The patient answered "no" to the question(s) "Have you recently felt down, depressed, or hopeless?", "Do you have thoughts of harming or killing yourself?", "Do you have a plan for harming or killing yourself?", "Have you recently had thoughts about harming or killing others?", "Do you have any dangerous items in your possession?", "Have you noticed less interest or pleasure in doing things?", "Are you here because you tried to hurt yourself?" and "Have you ever tried to hurt yourself before today?". ABUSE ASSESSMENT: Abuse history: reports abuse. (denies). Abuse assessment. does not appear abused. FUNCTIONAL ASSESSMENT: Functional assessment: no impairments noted. LEARNING NEEDS ASSESSMENT: The learning needs assessment revealed no barriers. FALL RISK ASSESSMENT: Fall risk assessment completed. No risk factors identified. NUTRITIONAL RISK ASSESSMENT: Nutritional risk assessment notes: morbidly obease. SKIN INTEGRITY ASSESSMENT: Skin integrity risk assessment completed. No skin integrity risk identified. --00:04/10/20 Milagros Casarez RN. Interventions Identification band on patient. --00:04/10/20 Milagros Casarez RN.PHYSICAL ASSESSMENTGENERAL / NEURO / PSYCH: Alert. Oriented X 4. Appears in no acute distress.HEENT: Pupils equal, round and reactive to light. No facial asymmetry noted. Mucous membranes arepink.RESPIRATORY: Respirations not labored. Chest nontender. Breath sounds within normal limits.CVS: Normal sinus rhythm noted. Capillary refill less than 2 seconds. Pulses within normal limits.GI / : Abdomen soft and nontender and normal bowel sounds.SKIN: Skin intact. Skin is warm and dry. Normal skin turgor. --00:04/10/20 Milagros Casarez RN.NURSING PROGRESS NOTESPatient transported to CT by wheelchair with technician assistant. --01:53 04/10/20 Nora Portillo R.N. ( Multiple attempts to obtain IV access unsuccessful. Attempts made by 3 different nurses and with ultrasound. Dr. Cruz notified. Repeat d dimer at 0600. Reevaluated after results received.). --03:58 04/10/20 Nora Portillo R.N. 06:46 04/10/20. BP: 143/85. MAP: 104. HR: 71. RR: 16. O2 saturation: 98%. Pain level now: 09/21. --06:50 04/10/20 Lopez Austin R.N. 3 Clinical Report - Nurses [facility] Emergency Department [address] [place] [address] Phone #: ext- [phone] 04/10/2020 00:09 ------ Patient: LORY RIVERA Sex: F : 1990 Age: 30y 01:30 04/10/20. Two patient identifiers checked. Call light placed in reach. Side rails up x 1. Bed placed in lowest position. Brakes of bed on. --06:52 04/10/20 Lopez Austin R.N. 01:31 04/10/20. BP: 135/79. MAP: 97. HR: 72. RR: 16. O2 saturation: 98%. Temp: 98.7 F. Pain level now: 09/21. --06:52 04/10/20 Lopez Austin R.N. 04:04 04/10/20. BP: 143/79. MAP: 100. HR: 69. RR: 16. O2 saturation: 98%. Temp: 98.7 F. Pain level now: 09/21. --06:53 04/10/20 Lopez Austin R.N. 05:00 04/10/20. Two patient identifiers checked. Call light placed in reach. Side rails up x 2. Bed placed in lowest position. Brakes of bed on. --06:55 04/10/20 Lopez Austin R.N. 05:00 04/10/20. BP: 156/85. MAP: 108. HR: 68. RR: 16. O2 saturation: 98%. Temp: 98.6 F. Pain level now: 09/21. --06:55 04/10 Lopez Austin R.N. 06:43 04/10/20. Reassessment acuity: LEVEL 3. The patient reports no complaints, she is calm and resting quietly and she has had no adverse reaction. Overall patient status is improved- she states feels better. RESPIRATORY: No respiratory distress. Breath sounds normal. CVS: Normal sinus rhythm noted. SKIN: Skin is warm and dry. Skin color within normal limits. Two patient identifiers checked. Call light placed in reach. Side rails up x 2. Bed placed in lowest position. Brakes of bed on. --06:57 04/10/20 Lopez Austin R.N. 06:43 04/10/20. BP: 147/89. MAP: 108. HR: 71. RR: 16. O2 saturation: 99%. Temp: 98.6 F. Pain level now: . --06:57 04/10/20 Lopez Austin R.N.DISPOSITION / DISCHARGE Condition at departure: improved. No learning barriers present. Discharge instructions provided and reviewed with the patient. Reviewed warnings. Reviewed medication(s). Treatments reviewed. Reviewed referrals. Patient verbalized understanding. Written instructions provided in Tajik. The patient was discharged by the physician. She was discharged home and accompanied by laborer shipyard. She left ambulatory and via private vehicle. Human Resources Department Supervisor driving. Patient has no belongings. --06:58 04/10/20 Lopez Austin R.N. 06:47 04/10/20. BP: 147/89. MAP: 108. HR: 71. RR: 16. O2 saturation: 98%. Temp: 98.6 F. Pain level now: 0/10. --06:58 04/10/20 Lopez Austin R.N.Locked/Released at 04/10/2020 06:58 by Lopez Austin R.N. 4 Clinical Report - Nurses [facility] Emergency Department [address] [place] [address] Phone #: ext- [phone] 04/10/2020 00:09 Patient: LORY RIVERA Sex: F : 1990 Age: 30y Name Value Range Interpretation Code Description Data Lanny rce(s) Supporting Document(s) ID Date Data Source [id number] 04/10/2020 12:10:00 AM EDT [facility] 1 Clinical Report - Physicians/Mid Levels [facility] Emergency Department [address] [place] [address] Phone #: ext- [phone] 04/10/2020 00:09 Patient: LORY RIVERA Sex: F : 1990 Age: 30y Arrived- By private vehicle. Historian- patient. Disposition decision: 06:31 04/10/2020.HISTORY OF PRESENT ILLNESS Chief Complaint: CHEST PAIN. This started yesterday and is still present. No nausea, vomiting, difficulty breathing or diaphoresis. (pt is a 30 year old female who presents to the ED for evaluation of her chest pain. she was at [facility] and was evaluated for her chest pain. she was discharged. she drove straight over here to be evaluated again. she stated that she she does not trust them and she wants to know why she has chest pain. she denies any other symptoms.). No additional chest pain. Similar symptoms previously. Recent medical care: The patient was seen recently at another facility in the emergency department.REVIEW OF SYSTEMSNo fever, chills, cough or pedal edema or edema. No calf pain or pain, fainting episodes or headache.No sore throat or throat, blurred vision or abdominal pain or pain. No black stools or stools or difficultywith urination or urination. No skin rash or rash, joint pain or bloody stools or stools. No chills, fever, eyeirritation, ear pain or nasal congestion. No cough, difficulty breathing, palpitations, constipation ordiarrhea. No nausea, vomiting, urinary frequency, hematuria or back pain. No headache, seizure or easybruising. The patient has had chest pain.PAST HISTORYSee nurses notes. Problems: Hypertension. Medications: Amlodi. Lopressor. Allergies: No Known Drug Allergy.SOCIAL HISTORYNo drug use.ADDITIONAL NOTESThe nursing notes have been reviewed.PHYSICAL EXAM 2 Clinical Report - Physicians/Mid Levels [facility] Emergency Department [address] [place] [address] Phone #: ext- [phone] 04/10/2020 00:09 Patient: LORY RIVERA Se x: F : 1990 Age: 30y Vital Signs: 04/10/2020 00:15 BP: lying 135/82. MAP: 99. HR: 79. RR: 20. O2 saturation: 96% on room air. Temp: 98.8 F. Pain level now: 0/10. Have been reviewed and appear to be correct. Blood pressure normal. Mean arterial pressure- normal. Heart rate normal. Respiratory rate normal. Temperature normal. Oxygen saturation normal. Appearance: Alert. Oriented X3. No acute distress. Eyes: Pupils equal, round and reactive to light. Eyes normal inspection. ENT: Ears normal. Nose normal. Pharynx normal. Neck: Normal inspection. Neck supple. CVS: Normal heart rate and rhythm. Heart sounds normal. Pulses normal. Respiratory: No respiratory distress. Painless inspiration. Breath sounds normal. Chest nontender. Abdomen: Soft and nontender. Bowel sounds normal. Back: Normal external inspection. No CVA tenderness. Skin: Skin warm and dry. Normal skin color. No rash. Normal skin turgor. Extremities: Extremities exhibit normal ROM. No lower extremity edema. Neuro: Oriented X 3. No motor deficit. No sensory deficit.LABS, X-RAYS, AND EKGLaboratory Tests: D-Dimer: (CHELSEA: 04/10/2020 05:53) ( [facility] 04/10/2020 06:03) Final results Test Result Flag Units (Reference) D-DIMER QUANT <0.27 ug/mL (0.27 - 0.50) D-Dimer: (CHELSEA: 04/10/2020 01:24) ( [facility] 04/10/2020 01:35) Final results Test Result Flag Units (Reference) D-DIMER QUANT 0.55 H ug/mL (0.27 - 0.50) Troponin-T: (CHELSEA: 04/10/2020 01:24) ( [facility] 04/10/2020 01:49) Final results Test Result Flag Units (Reference) TROPONIN T <0.01 NG/ML (0.00 - 0.10) TROPONIN T0.1 ng/ml Recommended as the clinical threshold value forTroponin T..PROGRESS AND PROCEDURESCourse of Care: pt presents to the ED for evaluation of her chest wall pain. she was seen at [facility].all her blood work was negative including trop, cbc, cmp, test and ekg. I repeated her ekgwhich was nl. her trop was nl. d-dimer was elevated. I discussed with pt the fact that I do not believe itis a pe but i ordered a cta chest to r/o pe. we were unable to get an iv. i repeated the d- dimer and it wasnormal. i discussed with pt the fact that I believe the first blood test was probably incorrect. if it was ablood clot, the d-dimer would not go down. her vs are stable other than mild hypertension. I discussedthe importance of treating her bp. elevated bp may lead to kidney failure and ultimately dialysis. Iencouraged pt to f/u wt pcp. work excuse given so pt may f/u with pcp on Saturday. Patient/family counseled. 3 Clinical Report - Physicians/Mid Levels [facility] Emergency Department [address] [place] [address] Phone #: ext- [phone] 04/10/2020 00:09 ------ Patient: LORY RIVERA Sex: F : 1990 Age: 30y Disposition: Discharged. Condition: good and stable.CLINICAL IMPRESSION Chest pain. Hypertension.INSTRUCTIONS No strenuous activity. Do not work for two days. (You may take tylenol and motrin for pain. follow up with your primary care physician. return if worse or any new symptoms. Please take your blood pressure medications. I am very worried that if you do not tend to your blood pressure you may end up with kidney failure and ultimately be on dailysis. discuss with your doctor.). Warnings: Further evaluation is necessary. GENERAL WARNINGS: Return or contact your physician immediately if your condition worsens or changes unexpectedly, if not improving as expected, or if other problems arise. Your Current Medications: Your current home medications have been reviewed. CONTINUE TAKING THE FOLLOWING MEDICATIONS: Amlodi*. Lopressor*. Understanding of the discharge instructions verbalized by patient.(Electronically signed by Ricky Cruz MD 04/12/2020 16:05) Name Value Range Interpretation Code Description Data Lanny rce(s) Supporting Document(s) ID Date Data Source [id number] 04/11/2020 09:48:00 PM EDT [facility] [address] [facility] [place] [address] RESPIRATORY CARE REPORT ==== ---------NAME------- NUMBER SEX AGE ADMIT DISC. XRAY# F/C TYPEGARCIA CRYSTAL [id number] F 30 04/10/20 04/10/20648371 P E/R DATE OF : 1990 M/R# [id number] #: [id number] TR-03 LOCATION: EMERGENCY DEPT [facility] [address] [facility] TE:04/10/20 07:37 [facility] [address] PHYSICIAN: JERZY CRUZ NOR Name Value Range Interpretation Code Description Data Lanny rce(s) Supporting Document(s) ID Date Data Source [id number] 04/10/2020 06:03:00 AM EDT [facility] Name Value Range Interpretation Code Description Data Lanny rce(s) Supporting Document(s) Fibrin D-dimer FEU [Mass/volume] in Platelet poor plasma <0. 27 ug/mL 0.27 - 0.50 [facility] ID Date Data Source [id number] 04/10/2020 01:49:00 AM EDT [facility] Name Value Range Interpretation Code Description Data Lanny rce(s) Supporting Document(s) TROPONIN T <0.01 NG/ML 0.00 - 0.10 [facility] TROPONIN T0.1 ng/ml Recommended as the c linical threshold value forTroponin T. ID Date Data Source [id number] 04/10/2020 01:35:00 AM EDT [facility] Name Value Range Interpretation Code Description Data Lanny rce(s) Supporting Document(s) Fibrin D-dimer FEU [Mass/volume] in Platelet poor plasma 0.55 ug /mL 0.27 - 0.50 H [facility] ID Date Data Source [id number] 04/04/2020 02:29:00 PM EDT [facility] Name Value Range Interpretation Code Description Data Lanny rce(s) Supporting Document(s) SARS coronavirus 2 RNA [facility] This lab was ordered by [facility] and reported by [facility]. ID Date Data Source [id number] 03/28/2020 05:30:00 AM EDT [facility] Name Value Range Interpretation Code Description Data Lanny rce(s) Supporting Document(s) SARS coronavirus 2 RNA [facility] This lab was ordered by [facility] and reported by [facility]. ID Date Data Source [id number] 03/23/2020 02:00:00 PM EDT [facility] Name Value Range Interpretation Code Description Data Lanny rce(s) Supporting Document(s) SARS coronavirus 2 RNA [facility] This lab was ordered by [facility] and reported by [facility]. ID Date Data Source [id number] 03/17/2020 02:45:00 PM EDT [facility] Name Value Range Interpretation Code Description Data Lanny rce(s) Supporting Document(s) SARS coronavirus 2 RNA [facility] This lab was ordered by [facility] and reported by [facility]. ID Date Data Source [id number] 03/10/2020 02:44:00 PM EDT [facility] Name Value Range Interpretation Code Description Data Lanny rce(s) Supporting Document(s) SARS coronavirus 2 RNA [facility] This lab was ordered by [facility] and reported by [facility]. Procedure Social History Code Duration Value Status Description Data Source(s ) Smoking 09/15/2020 12:00:00 AM EST Never Smoker completed Never S moker eCW1 ([facility]) Smoking 09/15/2020 12:00:00 AM EST Never Smoker completed Never S moker eCW1 ([facility]) Smoking 09/15/2020 12:00:00 AM EST Never Smoker completed Never S moker eCW1 ([facility]) Smoking 09/15/2020 12:00:00 AM EST Never Smoker completed Never S moker eCW1 ([facility]) Smoking 09/15/2020 12:00:00 AM EST Never Smoker completed Never S moker eCW1 ([facility]) Smoking 09/15/2020 12:00:00 AM EST Never Smoker completed Never S moker eCW1 ([facility]) Smoking 09/15/2020 12:00:00 AM EST Never Smoker completed Never S moker eCW1 ([facility]) Smoking 09/15/2020 12:00:00 AM EST Never Smoker completed Never S moker eCW1 ([facility]) Smoking 09/15/2020 12:00:00 AM EST Never Smoker completed Never S moker eCW1 ([facility]) Smoking 08/18/2020 12:00:00 AM EST Never Smoker completed Never S moker eCW1 ([facility]) Smoking 08/18/2020 12:00:00 AM EST Never Smoker completed Never S moker eCW1 ([facility]) Smoking 08/03/2020 12:00:00 AM EST Never Smoker completed Never S moker eCW1 ([facility]) Smoking 08/03/2020 12:00:00 AM EST Never Smoker completed Never S moker eCW1 ([facility]) Smoking 08/03/2020 12:00:00 AM EST Never Smoker completed Never S moker eCW1 ([facility]) Smoking 05/05/2020 12:00:00 AM EDT Never Smoker completed Never S moker eCW1 ([facility]) Smoking 05/05/2020 12:00:00 AM EDT Never Smoker completed Never S moker eCW1 ([facility]) Smoking 05/05/2020 12:00:00 AM EDT Never Smoker completed Never S moker eCW1 ([facility]) Smoking 05/05/2020 12:00:00 AM EDT Never Smoker completed Never S moker eCW1 ([facility]) Smoking 04/26/2020 12:00:00 AM EDT Never Smoker completed Never S moker eCW1 ([facility]) Vital Signs ID Date Data Source UNK Name Value Range Interpretation Code Description Data Source(s) Body mass index (BMI) [Ratio] 61.48 kg/m2 61.48 kg/m2 eCW1 ([facility]) Body weight 358.2 [lb_av] 358.2 [lb_av] eCW1 ([facility]) Body height [in_i] eCW1 ([facility]) Heart rate 96 /min 96 /min eCW1 ([facility]) Respiratory rate 18 /min 18 /min eCW1 ([facility]) Body temperature 97.4 [degF] 97.4 [degF] eCW1 ( [facility]) Systolic blood pressure 140 mm[Hg] 140 mm[Hg] e CW1 ([facility]) Diastolic blood pressure 70 mm[Hg] 70 mm[Hg] eCW1 ([facility]) Body weight 366.8 [lb_av] 366.8 [lb_av] eCW1 ([facility]) Body height [in_i] eCW1 ([facility]) Body mass index (BMI) [Ratio] 62.95 kg/m2 62.95 kg/m2 eCW1 ([facility]) Heart rate 80 /min 80 /min eCW1 ([facility]) Respiratory rate 18 /min 18 /min eCW1 ([facility]) Body temperature 97.2 [degF] 97.2 [degF] eCW1 ( [facility]) Systolic blood pressure 140 mm[Hg] 140 mm[Hg] e CW1 ([facility]) Diastolic blood pressure 82 mm[Hg] 82 mm[Hg] eCW1 ([facility]) Body weight 367.8 [lb_av] 367.8 [lb_av] eCW1 ([facility]) Body height [in_i] eCW1 ([facility]) Body mass index (BMI) [Ratio] 63.13 kg/m2 63.13 kg/m2 eCW1 ([facility]) Heart rate 83 /min 83 /min eCW1 ([facility]) Respiratory rate 18 /min 18 /min eCW1 ([facility]) Body temperature 97.5 [degF] 97.5 [degF] eCW1 ( [facility]) Systolic blood pressure 140 mm[Hg] 140 mm[Hg] e CW1 ([facility]) Diastolic blood pressure 90 mm[Hg] 90 mm[Hg] eCW1 ([facility]) Body weight 386.4 [lb_av] 386.4 [lb_av] eCW1 ([facility]) Body height [in_i] eCW1 ([facility]) Body mass index (BMI) [Ratio] 66.32 kg/m2 66.32 kg/m2 eCW1 ([facility]) Heart rate 86 /min 86 /min eCW1 ([facility]) Respiratory rate 18 /min 18 /min eCW1 ([facility]) Body temperature 97.9 [degF] 97.9 [degF] eCW1 ( [facility]) Systolic blood pressure 145 mm[Hg] 145 mm[Hg] e CW1 ([facility]) Diastolic blood pressure 78 mm[Hg] 78 mm[Hg] eCW1 ([facility]) Body weight 380 [lb_av] 380 [lb_av] [facility] Body height [in_i] eCW1 ([facility]) Body mass index (BMI) [Ratio] 65.22 kg/m2 65.22 kg/m2 eCW1 ([facility]) Heart rate 88 /min 88 /min eCW1 ([facility]) Respiratory rate 18 /min 18 /min eCW1 ([facility]) Body temperature 98 [degF] 98 [degF] eCW1 ([facility]) Systolic blood pressure 158 mm[Hg] 158 mm[Hg] e CW1 ([facility]) Diastolic blood pressure 100 mm[Hg] 100 mm[Hg] eCW1 ([facility]) Patient Treatment Plan of Care Planned Activity Planned Date Details Description Data Source (s) Ciprofloxacin 3 MG/ML / Dexamethasone 1 MG/ML [facility] 09/15/2020 12:00:00 AM EST eCW1 ([facility]) Ciprofloxacin 3 MG/ML / Dexamethasone 1 MG/ML [facility] [employer] 09/15/2020 12:00:00 AM EST eCW1 ([facility]) Ciprofloxacin 3 MG/ML / Dexamethasone 1 MG/ML [facility] [employer] [employer] 09/15/2020 12:00:00 AM EST eCW1 ([facility]) Ciprofloxacin 3 MG/ML / Dexamethasone 1 MG/ML [facility] [employer] 09/15/2020 12:00:00 AM EST eCW1 ([facility]) Ciprofloxacin 3 MG/ML / Dexamethasone 1 MG/ML [facility] [employer] 09/15/2020 12:00:00 AM EST eCW1 ([facility]) Ciprofloxacin 3 MG/ML / Dexamethasone 1 MG/ML [facility] [employer] 09/15/2020 12:00:00 AM EST eCW1 ([facility]) Ciprofloxacin 3 MG/ML / Dexamethasone 1 MG/ML [facility] [employer] 09/15/2020 12:00:00 AM EST eCW1 ([facility]) Ciprofloxacin 3 MG/ML / Dexamethasone 1 MG/ML [facility] [employer] 09/15/2020 12:00:00 AM EST eCW1 ([facility]) Ciprofloxacin 3 MG/ML / Dexamethasone 1 MG/ML [facility] [employer] 09/15/2020 12:00:00 AM EST eCW1 ([facility]) Post-OP Shoe/Soft Top Women - 08/04/2020 12:00:00 AM EST eCW1 ([facility]) Post-OP Shoe/Soft Top Women - 08/04/2020 12:00:00 AM EST eCW1 ([facility]) Post-OP Shoe/Soft Top Women - 08/04/2020 12:00:00 AM EST eCW1 ([facility]) Lisinopril 10 MG Oral Tablet 04/27/2020 12:00:00 AM EDT eCW1 ([facility])
[2021-05-06] MEDS ORDERED: SERT50TA29 PO (21:07)
[2021-05-06] MEDS ORDERED: CLON0.5T2 PO (21:07)
--- OUTSIDE RECORDS SUMMARY | 2021-05-07 07:35 | CCD ---
Author Author [facility] Organization [facility] Address Unknown Phone Unavailable Care Team Providers Care Unclaimed Property Manager Name Role Phone Servage, L Blanche DIPPER AND DRIER Unavailable Unavailable Servage, L Blanche DIPPER AND DRIER Unavailable Unavailable Servage, L Blanche DIPPER AND DRIER Unavailable Unavailable Servage, L Blanche DIPPER AND DRIER Unavailable Unavailable Servage, L Blanche DIPPER AND DRIER Unavailable Unavailable Servage, L Blanche DIPPER AND DRIER Unavailable Unavailable Servage, L Blanche DIPPER AND DRIER Unavailable Unavailable Servage, L Blanche DIPPER AND DRIER Unavailable Unavailable Servage, L Blanche DIPPER AND DRIER Unavailable Unavailable Servage, L Blanche DIPPER AND DRIER Unavailable Unavailable Servage, L Blanche DIPPER AND DRIER Unavailable Unavailable Servage, L Blanche DIPPER AND DRIER Unavailable Unavailable Servage, L Blanche DIPPER AND DRIER Unavailable Unavailable Servage, L Blanche DIPPER AND DRIER Unavailable Unavailable Servage, L Blanche DIPPER AND DRIER Unavailable Unavailable Servage, L Blanche DIPPER AND DRIER Unavailable Unavailable Servage, L Blanche DIPPER AND DRIER Unavailable Unavailable Servage, L Blanche DIPPER AND DRIER Unavailable Unavailable Servage, L Blanche DIPPER AND DRIER Unavailable Unavailable Servage, L Blanche DIPPER AND DRIER Unavailable Unavailable Servage, L Blanche DIPPER AND DRIER Unavailable Unavailable Servage, L Blanche DIPPER AND DRIER Unavailable Unavailable Servage, L Blanche DIPPER AND DRIER Unavailable Unavailable Servage, L Blanche DIPPER AND DRIER Unavailable Unavailable Servage, L Blanche DIPPER AND DRIER Unavailable Unavailable Servage, L Blanche DIPPER AND DRIER Unavailable Unavailable Servage, L Blanche DIPPER AND DRIER Unavailable Unavailable Servage, L Blanche DIPPER AND DRIER Unavailable Unavailable Servage, L Blanche DIPPER AND DRIER Unavailable Unavailable Servage, L Blanche DIPPER AND DRIER Unavailable Unavailable Servage, L Blanche DIPPER AND DRIER Unavailable Unavailable Servage, L Blanche DIPPER AND DRIER Unavailable Unavailable Servage, L Blanche DIPPER AND DRIER Unavailable Unavailable Servage, L Blanche DIPPER AND DRIER Unavailable Unavailable Servage, L Blanche DIPPER AND DRIER Unavailable Unavailable Servage, L Blanche DIPPER AND DRIER Unavailable Unavailable Servage, L Blanche DIPPER AND DRIER Unavailable Unavailable Servage, L Blanche DIPPER AND DRIER Unavailable Unavailable Servage, L Blanche DIPPER AND DRIER Unavailable Unavailable Servage, L Blanche DIPPER AND DRIER Unavailable Unavailable Servage, L Blanche DIPPER AND DRIER Unavailable Unavailable Servage, L Blanche DIPPER AND DRIER Unavailable Unavailable Servage, L Blanche DIPPER AND DRIER Unavailable Unavailable Servage, L Blanche DIPPER AND DRIER Unavailable Unavailable Servage, L Blanche DIPPER AND DRIER Unavailable Unavailable Servage, L Blanche DIPPER AND DRIER Unavailable Unavailable Servage, L Blanche DIPPER AND DRIER Unavailable Unavailable Servage, L Blanche DIPPER AND DRIER Unavailable Unavailable Servage, L Blanche DIPPER AND DRIER Unavailable Unavailable Servage, L Blanche DIPPER AND DRIER Unavailable Unavailable Servage, L Blanche DIPPER AND DRIER Unavailable Unavailable Servage, L Blanche DIPPER AND DRIER Unavailable Unavailable Servage, L Blanche DIPPER AND DRIER Unavailable Unavailable Servage, L Blanche DIPPER AND DRIER Unavailable Unavailable Servage, L Blanche DIPPER AND DRIER Unavailable Unavailable Servage, L Blanche DIPPER AND DRIER Unavailable Unavailable Servage, L Blanche DIPPER AND DRIER Unavailable Unavailable Servage, L Blanche DIPPER AND DRIER Unavailable Unavailable Servage, L Blanche DIPPER AND DRIER Unavailable Unavailable Servage, L Blanche DIPPER AND DRIER Unavailable Unavailable Servage, L Blanche DIPPER AND DRIER Unavailable Unavailable Servage, L Blanche DIPPER AND DRIER Unavailable Unavailable Servage, L Blanche DIPPER AND DRIER Unavailable Unavailable Servage, L Blanche DIPPER AND DRIER Unavailable Unavailable Servage, L Blanche DIPPER AND DRIER Unavailable Unavailable LAROCK, Neisha MCKENNA DIPPER AND DRIER Unavailable Unavailable LAROCK, Neisha MCKENNA DIPPER AND DRIER Unavailable Unavailable LAROCK, Neisha MCKENNA DIPPER AND DRIER Unavailable Unavailable LAROCK, Neisha MCKENNA DIPPER AND DRIER Unavailable Unavailable LAROCK, Neisha MCKENNA DIPPER AND DRIER Unavailable Unavailable LAROCK, Neisha MCKENNA DIPPER AND DRIER Unavailable Unavailable LAROCK, Neisha MCKENNA DIPPER AND DRIER Unavailable Unavailable LAROCK, J CLARISA DIPPER AND DRIER Unavailable Unavailable LAROCK, J CLARISA DIPPER AND DRIER Unavailable Unavailable LAROCK, J CLARISA DIPPER AND DRIER Unavailable Unavailable LAROCK, J CLARISA DIPPER AND DRIER Unavailable Unavailable LAROCK, J CLARISA DIPPER AND DRIER Unavailable Unavailable LAROCK, J CLARISA DIPPER AND DRIER Unavailable Unavailable LAROCK, J CLARISA DIPPER AND DRIER Unavailable Unavailable LAROCK, J CLARISA DIPPER AND DRIER Unavailable Unavailable LAROCK, J CLARISA DIPPER AND DRIER Unavailable Unavailable LAROCK, J CLARISA DIPPER AND DRIER Unavailable Unavailable LAROCK, J CLARISA DIPPER AND DRIER Unavailable Unavailable LAROCK, J CLARISA DIPPER AND DRIER Unavailable Unavailable LAROCK, J CLARISA DIPPER AND DRIER Unavailable Unavailable LAROCK, J CLARISA DIPPER AND DRIER Unavailable Unavailable LAROCK, J CLARISA DIPPER AND DRIER Unavailable Unavailable ANTHONY, L RICKY MD Unavailable Unavailable ANTHONY, L RICKY MD Unavailable Unavailable ANTHONY, L RICKY MD Unavailable Unavailable ANTHONY, L RICKY MD Unavailable Unavailable ANTHONY, L RICKY MD Unavailable Unavailable ANTOHNY, L RICKY MD Unavailable Unavailable ANTHONY, L [...] by facilities licensed or operated by the [facility] Office of Mental Health; or Provided by the [facility] Office for People With Developmental Disabilities. If such information is present, then the following [facility] mandated warning applies: This information has [...] law may result in a fine or nursing home sentence or both. A general authorization for the release of medical or other information is NOT sufficient authorization for further disc losure. Family History Family Member Name Family Member Gender Family Member Status Date o f Status Description Data Source(s) Unknown Male Problem [facility] ([facility] Encounters Encounter Providers Location Date Indications Data Source(s ) Unknown [address] [facility] [id number] 02/27/2021 12:00:00 AM EDT [facility]CW1 ([facility]) Unknown [address] [facility] [address] 02/21/2021 12:00:00 AM EDT eCW1 ([facility]) Unknown [address] [facility] [address] 02/20/2021 12:00:00 AM EDT eCW1 ([facility]) Unknown [address] [facility] [address] 02/14/2021 12:00:00 AM EDT eCW1 ([facility]) Unknown [address] [facility] [address] 01/12/2021 12:00:00 AM EDT eCW1 ([facility]) Unknown [address] [facility] [address] 11/22/2020 12:00:00 AM EDT eCW1 ([facility]) Unknown [address] [facility] [address] 10/06/2020 12:00:00 AM EDT eCW1 ([facility]) [place] [address] [facility] [address] 09/15/2020 12:00:00 AM EST eCW1 ([facility]) [place] [address] [facility] [address] 09/14/2020 12:00:00 AM EST eCW1 ([facility]) Outpatient Attender: CLARISA CASTLE NP 08/2020 01:18:22 PM EST - 09/13/2020 02:18:42 PM EST Doc[facility]Tap ([facility] ) [place] [address] [facility] [address] 08/18/2020 12:00:00 AM EST eCW1 ([facility]) [place] [address] [facility] [address] 08/08/2020 12:00:00 AM EST eCW1 ([facility]) [place] [address] [facility] [address] 08/04/2020 12:00:00 AM EST eCW1 ([facility]) [place] [address] [facility] [address] 08/03/2020 12:00:00 AM EST eCW1 ([facility]) [place] [address] [facility] [address] 07/13/2020 12:00:00 AM EST eCW1 ([facility]) [place] [address] [facility] [address] 06/30/2020 12:00:00 AM EST eCW1 ([facility]) [place] [address] [facility] [address] 06/03/2020 12:00:00 AM EST eCW1 ([facility]) [place] [address] [facility] [address] 06/01/2020 12:00:00 AM EST eCW1 ([facility]) [place] [address] [facility] [address] 05/05/2020 12:00:00 AM EDT eCW1 (Replaced by [facility]) [place] [address] [facility] [address] 04/27/2020 12:00:00 AM EDT eCW1 (Replaced by [facility]) Emergency Attender: RICKY CRUZ MDConsultant: Blanche Serv age DIPPER AND DRIER 04/10/2020 12:10:00 AM EDT - 04/10/2020 06:47:00 AM EDT [facility] Patient discharged. Immunizations Vaccine Date Status Description Data Source(s) COVID-19 VACCINE Judy 10/18/2020 12:00:00 AM EDT completed [facility] Vaccine Series Complete: YESThis Data wa s Submitted to [facility] Via [employer]. New in 2011. IIV4 04/18/2020 12:29:00 PM EDT completed eCW1 ([facility]) New in 2011. IIV4 04/18/2020 12:29:00 PM EDT completed eCW1 ([facility]) New in 2011. IIV4 04/18/2020 12:29:00 PM EDT completed eCW1 ([facility]) New in 2011. IIV4 04/18/2020 12:29:00 PM EDT completed eCW1 ([facility]) New in 2011. IIV4 04/18/2020 12:29:00 PM EDT completed eCW1 ([facility]) New in 2011. IIV4 04/18/2020 12:29:00 PM EDT completed eCW1 ([facility]) New in 2011. IIV4 04/18/2020 12:29:00 PM EDT completed eCW1 ([facility]) New in 2011. IIV4 04/18/2020 12:29:00 PM EDT completed eCW1 ([facility]) New in 2011. IIV4 04/18/2020 12:29:00 PM EDT completed eCW1 ([facility]) New in 2011. IIV4 04/18/2020 12:29:00 PM EDT completed eCW1 ([facility]) New in 2011. IIV4 04/18/2020 12:29:00 PM EDT completed eCW1 ([facility]) New in 2011. IIV4 04/18/2020 12:29:00 PM EDT completed eCW1 ([facility]) New in 2011. IIV4 04/18/2020 12:29:00 PM EDT completed eCW1 ([facility]) New in 2011. IIV4 04/18/2020 12:29:00 PM EDT completed eCW1 ([facility]) New in 2011. IIV4 04/18/2020 12:29:00 PM EDT completed eCW1 ([facility]) New in 2011. IIV4 04/18/2020 12:29:00 PM EDT completed eCW1 ([facility]) New in 2011. II4 04/18/2020 12:29:00 PM EDT completed eCW1 ([facility]) New in 2011. II4 04/18/2020 12:29:00 PM EDT completed eCW1 ([facility]) New in 2011. IIV4 04/18/2020 12:29:00 PM EDT completed eCW1 ([facility]) Medications Medication Brand Name Start Date Product [...] EST active Ciproflo xacin-Dexamethasone 0.3-0.1 % eCW1 ([facility]) Ciprofloxacin 3 MG/ML / Dexamethasone 1 MG/ML Otic Suspension Ciprofloxacin- Dexamethasone 0.3-0.1 % Ciprofloxacin-Dexamethasone 0.3-0.1 % 09/15/2020 12:00:00 AM EST active Ciproflo xacin-Dexamethasone 0.3-0.1 % eCW1 ([facility]) Ciprofloxacin 3 MG/ML / Dexamethasone 1 MG/ML Otic Suspension Ciprofloxacin- Dexamethasone 0.3-0.1 % Ciprofloxacin-Dexamethasone 0.3-0.1 % 09/15/2020 12:00:00 AM EST active e CW1 ([facility]) Ciprofloxacin 3 MG/ML / Dexamethasone 1 MG/ML Otic Suspension Ciprofloxacin- Dexamethasone 0.3-0.1 % Ciprofloxacin-Dexamethasone 0.3-0.1 % 09/15/2020 12:00:00 AM EST active Ciproflo xacin-Dexamethasone 0.3-0.1 % eCW1 ([facility]) Ciprofloxacin 3 MG/ML / Dexamethasone 1 MG/ML Otic Suspension Ciprofloxacin- Dexamethasone 0.3-0.1 % Ciprofloxacin-Dexamethasone 0.3-0.1 % 09/15/2020 12:00:00 AM EST active Ciproflo xacin-Dexamethasone 0.3-0.1 % eCW1 ([facility]) Ciprofloxacin 3 MG/ML / Dexamethasone 1 MG/ML Otic Suspension Ciprofloxacin- Dexamethasone 0.3-0.1 % Ciprofloxacin-Dexamethasone 0.3-0.1 % 09/15/2020 12:00:00 AM EST active Ciproflo xacin-Dexamethasone 0.3-0.1 % eCW1 ([facility]) Ciprofloxacin 3 MG/ML / Dexamethasone 1 MG/ML Otic Suspension Ciprofloxacin- Dexamethasone 0.3-0.1 % Ciprofloxacin-Dexamethasone 0.3-0.1 % 09/15/2020 12:00:00 AM EST active Ciproflo xacin-Dexamethasone 0.3-0.1 % eCW1 ([facility]) Ciprofloxacin 3 MG/ML / Dexamethasone 1 MG/ML Otic Suspension Ciprofloxacin- Dexamethasone 0.3-0.1 % Ciprofloxacin-Dexamethasone 0.3-0.1 % 09/15/2020 12:00:00 AM EST active Ciproflo xacin-Dexamethasone 0.3-0.1 % eCW1 ([facility]) Ciprofloxacin 3 MG/ML / Dexamethasone 1 MG/ML Otic Suspension Ciprofloxacin- Dexamethasone 0.3-0.1 % Ciprofloxacin-Dexamethasone 0.3-0.1 % 09/15/2020 12:00:00 AM EST active Ciproflo xacin-Dexamethasone 0.3-0.1 % eCW1 ([facility]) Metronidazole 500 MG Oral Tablet METRONIDAZOLE 09/08/2020 [...] active Post-OP Shoe/Soft Top Women - eCW1 ([facility]) Post-OP Shoe/Soft Top Women - Post-OP Shoe/Soft Top Women - 08/04/2020 12:00:00 AM EST active Post-OP Shoe/Soft Top Women - eCW1 ([facility]) Post-OP Shoe/Soft Top Women - Post-OP Shoe/Soft Top Women - 08/04/2020 12:00:00 AM EST active Post-OP Shoe/Soft Top Women - eCW1 ([facility]) Post-OP Shoe/Soft Top Women - Post-OP Shoe/Soft Top Women - 08/04/2020 12:00:00 AM EST active Post-OP Shoe/Soft Top Women - eCW1 ([facility]) Post-OP Shoe/Soft Top Women - Post-OP Shoe/Soft Top Women - 08/04/2020 12:00:00 AM EST active Post-OP Shoe/Soft Top Women - eCW1 ([facility]) Post-OP Shoe/Soft Top Women - Post-OP Shoe/Soft Top Women - 08/04/2020 12:00:00 AM EST active Post-OP Shoe/Soft Top Women - eCW1 ([facility]) Post-OP Shoe/Soft Top Women - Post-OP Shoe/Soft Top Women - 08/04/2020 12:00:00 AM EST active Post-OP Shoe/Soft Top Women - eCW1 ([facility]) Post-OP Shoe/Soft Top Women - Post-OP Shoe/Soft Top Women - 08/04/2020 12:00:00 AM EST active eCW1 ([facility]) Post-OP Shoe/Soft Top Women - Post-OP Shoe/Soft Top Women - 08/04/2020 12:00:00 AM EST active Post-OP Shoe/Soft Top Women - eCW1 ([facility]) Post-OP Shoe/Soft Top Women - Post-OP Shoe/Soft Top Women - 08/04/2020 12:00:00 AM EST active Post-OP Shoe/Soft Top Women - eCW1 ([facility]) Post-OP Shoe/Soft Top Women - Post-OP Shoe/Soft Top Women - 08/04/2020 12:00:00 AM EST active Post-OP Shoe/Soft Top Women - eCW1 ([facility]) Post-OP Shoe/Soft Top Women - Post-OP Shoe/Soft Top Women - 08/04/2020 12:00:00 AM EST active Post-OP Shoe/Soft Top Women - eCW1 ([facility]) Post-OP Shoe/Soft Top Women - Post-OP Shoe/Soft Top Women - 08/04/2020 12:00:00 AM EST active Post-OP Shoe/Soft Top Women - eCW1 ([facility]) Post-OP Shoe/Soft Top Women - Post-OP Shoe/Soft Top Women - 08/04/2020 12:00:00 AM EST active Post-OP Shoe/Soft Top Women - eCW1 ([facility]) 25 mg 07/02/2020 12:00:00 AM EST tablet [...] {tablet} active Lisinopril 10 MG eCW1 ( [facility]) 5 mg 04/06/2020 12:00:00 AM EDT tablet [...] relationship to robert Policy Robert Plan Information [facility] Community Plan Commercial [id number] Self [id number] [facility] COMMUNITY PLAN [facility] [id number] SP [id number] [facility] Blue Cross and Blue Shield - [place] Blue Cross/B lue Shield [id number] Self [id number] Medicaid [place] Medigap Part B [id number] Self [id number] [facility] COMMUNITY PLAN [facility] [id number] SP [id number] [facility] COMMUNITY [facility]AN [facility] [id number] SP [id number] Medicaid [place] Medigap Part B [id number] Self [id number] ANSI-Medicaid [id number] ANSI-Medicaid [id number] ANSI-Medicaid [id number] ANSI-Medicaid [id number] ANSI-Medicaid [id number] ANSI-Not a Secondary Insurance [id number] ANSI-Not a Secondary Insurance [id number] ANSI-Medicaid [id number] ANSI-Not a Secondary Insurance [id number] ANSI-Medicaid [id number] ANSI-Medicaid [id number] ANSI-Not a Secondary Insurance [id number] ANSI-Not a Secondary Insurance [id number] ANSI-Medicaid [id number] [facility] O [id number] S [id number] SELF PAY ONLY [id number] MEDICAID [id number] SP [id number] SELF PAY ONLY [id number] SP [id number] SELF PAY ONLY UNAVAILABLE UNAV AILABLE O UNAVAILABLE UNAVAILA BLE EXCELLUS BCBS FEDERAL [id number] SP [id number] [employer] PPO 302/307 [id number] SP [id number] SELF PAY UNAVAILABLE SP UNAVAILA BLE EXCELLUS BCBS B [id number] S [id number] [place] [place] O 302/307 [id number] SP [id number] Problems, Conditions, and Diagnoses Code Display Name Description Problem Type Effective Dates Data Source(s) I10 Essential (primary) hypertension Essential (primary) h ypertension Diagnosis 04/10/2020 12:10:00 AM EDT [facility] R0789 Other chest pain Other chest pain Diagnosis 04/10/2020 12 :10:00 AM EDT [facility] E74.39 Impaired glucose tolerance Glucose intolerance Problem 08/18/2020 12:00:00 AM EST eCW1 ([facility]) F41.9 [id number] Anxiety Problem 04/27/2020 12:00:00 AM ED T eCW1 ([facility]) Surgeries/Procedures No Information Results ID Date Data Source [id number] 05/04/2021 06:09:00 AM EDT [facility] Name Value Range Interpretation Code Description Data Lanny rce(s) Supporting Document(s) SARS coronavirus 2 RNA [Presence] in Res piratory specimen by SANDY with probe detection NEGATIVE [facility] This lab was ordered by [facility] a nd reported by [facility]. ID Date Data Source [id number] 05/02/2021 12:00:00 AM EDT [facility] Name Value Range Interpretation Code Description Data Lanny rce(s) Supporting Document(s) SARS coronavirus 2 Ag NEGATIVE [facility] This lab was ordered by [facility] and reported by [facility]. ID Date Data Source [id number] 04/18/2021 12:00:00 AM EDT [facility] Name Value Range Interpretation Code Description Data Lanny rce(s) Supporting Document(s) SARS coronavirus 2 Ag NEGATIVE [facility] This lab was ordered by [facility] and reported by [facility]. ID Date Data Source [id number] 04/04/2021 12:00:00 AM EDT [facility] Name Value Range Interpretation Code Description Data Lanny rce(s) Supporting Document(s) SARS coronavirus 2 Ag NEGATIVE [facility] This lab was ordered by [facility] and reported by [facility]. ID Date Data Source [id number] 03/23/2021 12:00:00 AM EDT [facility] Name Value Range Interpretation Code Description Data Lanny rce(s) Supporting Document(s) SARS coronavirus 2 Ag NEGATIVE [facility] This lab was ordered by [facility] and reported by [facility]. ID Date Data Source [id number] 12/20/2020 12:00:00 AM EDT [facility] Name Value Range Interpretation Code Description Data Lanny rce(s) Supporting Document(s) SARS coronavirus 2 Ag NEGATIVE [facility] This lab was ordered by [facility] and reported by [facility]. ID Date Data Source [id number] 12/13/2020 12:00:00 AM EDT [facility] Name Value Range Interpretation Code Description Data Lanny rce(s) Supporting Document(s) SARS coronavirus 2 Ag NEGATIVE [facility] This lab was ordered by [facility] and reported by [facility]. ID Date Data Source [id number] 12/08/2020 12:00:00 AM EDT [facility] Name Value Range Interpretation Code Description Data Lanny rce(s) Supporting Document(s) SARS coronavirus 2 Ag NEGATIVE [facility] This lab was ordered by [facility] and reported by [facility]. ID Date Data Source [id number] 12/06/2020 12:00:00 AM EDT [facility] Name Value Range Interpretation Code Description Data Lanny rce(s) Supporting Document(s) SARS coronavirus 2 Ag NEGATIVE [facility] This lab was ordered by [facility] and reported by [facility]. ID Date Data Source [id number] 11/30/2020 12:00:00 AM EDT [facility] Name Value Range Interpretation Code Description Data Lanny rce(s) Supporting Document(s) SARS-CoV2 Rapid Antigen Negative [facility] This lab was ordered by [facility] and reported by [facility]. ID Date Data Source [id number] 11/24/2020 12:00:00 AM EDT [facility] Name Value Range Interpretation Code Description Data Lanny rce(s) Supporting Document(s) SARS coronavirus 2 Ag NEGATIVE [facility] This lab was ordered by [facility] and reported by [facility]. ID Date Data Source [id number] 11/22/2020 12:00:00 AM EDT [facility] Name Value Range Interpretation Code Description Data Lanny rce(s) Supporting Document(s) SARS coronavirus 2 Ag NEGATIVE [facility] This lab was ordered by [facility] and reported by [facility]. ID Date Data Source [id number] 11/14/2020 12:00:00 AM EDT [facility] Name Value Range Interpretation Code Description Data Lanny rce(s) Supporting Document(s) SARS coronavirus 2 Ag NEGATIVE [facility] This lab was ordered by [facility] and reported by [facility]. ID Date Data Source [id number] 11/10/2020 12:00:00 AM EDT [facility] Name Value Range Interpretation Code Description Data Lanny rce(s) Supporting Document(s) SARS coronavirus 2 Ag NEGATIVE [facility] This lab was ordered by [facility] and reported by [facility]. ID Date Data Source [id number] 10/31/2020 03:28:00 PM EDT [facility] Name Value Range Interpretation Code Description Data Lanny rce(s) Supporting Document(s) SARS-CoV-2 (COVID-19) RNA [Presence] in Respiratory specimen by SANDY with probe detection Not Detected [facility] This lab was ordered by [facility] and reported by [employer]. ID Date Data Source [id number] 10/26/2020 12:00:00 AM EDT [facility] Name Value Range Interpretation Code Description Data Lanny rce(s) Supporting Document(s) SARS-CoV2 Rapid Antigen Negative [facility] This lab was ordered by [facility] and reported by [facility]. ID Date Data Source [id number] 10/22/2020 12:00:00 AM EDT [facility] Name Value Range Interpretation Code Description Data Lanny rce(s) Supporting Document(s) SARS-CoV2 Rapid Antigen Negative [facility] This lab was ordered by [facility] and reported by [facility]. ID Date Data Source [id number] 10/17/2020 03:18:00 PM EDT [facility] Name Value Range Interpretation Code Description Data Lanny rce(s) Supporting Document(s) SARS-CoV-2 (COVID-19) RNA [Presence] in Respiratory specimen by SANDY with probe detection Not Detected [facility] This lab was ordered by [facility] and reported by [employer]. ID Date Data Source [id number] 10/13/2020 12:00:00 AM EDT [facility] Name Value Range Interpretation Code Description Data Lanny rce(s) Supporting Document(s) SARS coronavirus 2 Ag NEGATIVE [facility] This lab was ordered by [facility] and reported by [facility]. ID Date Data Source [id number] 10/10/2020 07:00:00 AM EDT [facility] Name Value Range Interpretation Code Description Data Lanny rce(s) Supporting Document(s) SARS coronavirus 2 RNA Not Detected [facility] This lab was ordered by [facility] and reported by [facility]. ID Date Data Source [id number] 10/06/2020 12:00:00 AM EDT [facility] Name Value Range Interpretation Code Description Data Lanny rce(s) Supporting Document(s) SARS coronavirus 2 Ag NEGATIVE [facility] This lab was ordered by [facility] and reported by [facility]. ID Date Data Source [id number] 10/04/2020 11:00:00 AM EDT [facility] Name Value Range Interpretation Code Description Data Lanny rce(s) Supporting Document(s) SARS coronavirus 2 RNA Not Detected [facility] This lab was ordered by [facility] and reported by [facility]. ID Date Data Source [id number] 09/29/2020 12:00:00 AM EDT [facility] Name Value Range Interpretation Code Description Data Lanny rce(s) Supporting Document(s) SARS coronavirus 2 Ag NEGATIVE [facility] This lab was ordered by [facility] and reported by [facility]. ID Date Data Source [id number] 09/26/2020 02:00:00 PM EDT [facility] Name Value Range Interpretation Code Description Data Lanny rce(s) Supporting Document(s) SARS coronavirus 2 RNA Not Detected [facility] This lab was ordered by [facility] and reported by [facility]. ID Date Data Source [id number] 09/22/2020 12:00:00 AM EST [facility] Name Value Range Interpretation Code Description Data Lanny rce(s) Supporting Document(s) SARS coronavirus 2 Ag NEGATIVE [facility] This lab was ordered by [facility] and reported by [facility]. ID Date Data Source [id number] 09/19/2020 03:00:00 PM EST [facility] Name Value Range Interpretation Code Description Data Lanny rce(s) Supporting Document(s) SARS coronavirus 2 RNA Not Detected [facility] This lab was ordered by [facility] and reported by [facility]. ID Date Data Source [id number] 09/15/2020 12:00:00 AM EST [facility] Name Value Range Interpretation Code Description Data Lanny rce(s) Supporting Document(s) SARS coronavirus 2 Ag NEGATIVE [facility] This lab was ordered by [facility] and reported by [facility]. ID Date Data Source [id number] 09/12/2020 12:01:00 PM EST [facility] Name Value Range Interpretation Code Description Data Lanny rce(s) Supporting Document(s) SARS coronavirus 2 RNA Not Detected [facility] This lab was ordered by [facility] and reported by [facility]. ID Date Data Source [id number] 09/08/2020 12:00:00 AM EST [facility] Name Value Range Interpretation Code Description Data Lanny rce(s) Supporting Document(s) SARS coronavirus 2 Ag NEGATIVE [facility] This lab was ordered by [facility] and reported by [facility]. ID Date Data Source [id number] 09/05/2020 03:00:00 PM EST [facility] Name Value Range Interpretation Code Description Data Lanny rce(s) Supporting Document(s) SARS coronavirus 2 RNA Not Detected [facility] This lab was ordered by [facility] and reported by [facility]. ID Date Data Source [id number] 09/01/2020 12:00:00 AM EST [facility] Name Value Range Interpretation Code Description Data Lanny rce(s) Supporting Document(s) SARS coronavirus 2 Ag NEGATIVE [facility] This lab was ordered by [facility] and reported by [facility]. ID Date Data Source [id number] 08/29/2020 02:56:00 PM EST [facility] Name Value Range Interpretation Code Description Data Lanny rce(s) Supporting Document(s) SARS coronavirus 2 RNA Not Detected [facility] This lab was ordered by [facility] and reported by [facility]. ID Date Data Source [id number] 08/25/2020 12:00:00 AM EST [facility] Name Value Range Interpretation Code Description Data Lanny rce(s) Supporting Document(s) SARS coronavirus 2 Ag NEGATIVE [facility] This lab was ordered by [facility] and reported by [facility]. ID Date Data Source [id number] 08/22/2020 02:00:00 PM EST [facility] Name Value Range Interpretation Code Description Data Lanny rce(s) Supporting Document(s) SARS coronavirus 2 RNA Not Detected [facility] This lab was ordered by [facility] and reported by [facility]. ID Date Data Source [id number] 08/18/2020 12:00:00 AM EST [facility] Name Value Range Interpretation Code Description Data Lanny rce(s) Supporting Document(s) SARS coronavirus 2 Ag [facility] This lab was ordered by [facility] and reported by [facility]. ID Date Data Source [id number] 08/15/2020 06:00:00 AM EST [facility] Name Value Range Interpretation Code Description Data Lanny rce(s) Supporting Document(s) SARS coronavirus 2 RNA Not Detected [facility] This lab was ordered by [facility] and reported by [facility]. ID Date Data Source [id number] 08/11/2020 12:00:00 AM EST [facility] Name Value Range Interpretation Code Description Data Lanny rce(s) Supporting Document(s) SARS coronavirus 2 Ag NEGATIVE [facility] This lab was ordered by [facility] and reported by [facility]. ID Date Data Source [id number] 08/08/2020 02:00:00 PM EST [facility] Name Value Range Interpretation Code Description Data Lanny rce(s) Supporting Document(s) SARS coronavirus 2 RNA Not Detected [facility] This lab was ordered by [facility] and reported by [facility]. ID Date Data Source [id number] 08/04/2020 12:00:00 AM EST [facility] Name Value Range Interpretation Code Description Data Lanny rce(s) Supporting Document(s) SARS coronavirus 2 Ag Negative [facility] This lab was ordered by [facility] and reported by [facility]. ID Date Data Source [id number] [id number] COMPLETE 08/03/2020 12:00:00 AM EST eCW1 ([facility]) Name Value Range Interpretation Code Description Data Lanny rce(s) Supporting Document(s) PLZ FOOT COMPLETE eCW1 ([facility]) ID Date Data Source [id number] 08/01/2020 03:00:00 PM EST [facility] Name Value Range Interpretation Code Description Data Lanny rce(s) Supporting Document(s) SARS coronavirus 2 RNA Not Detected [facility] This lab was ordered by [facility] and reported by [facility]. ID Date Data Source [id number] 07/28/2020 12:00:00 AM EST [facility] Name Value Range Interpretation Code Description Data Lanny rce(s) Supporting Document(s) SARS-CoV2 Rapid Antigen Negative [facility] This lab was ordered by [facility] and reported by [facility]. ID Date Data Source [id number] 07/25/2020 03:00:00 PM EST [facility] Name Value Range Interpretation Code Description Data Lanny rce(s) Supporting Document(s) SARS coronavirus 2 RNA Not Detected [facility] This lab was ordered by [facility] and reported by [facility]. ID Date Data Source [id number] 07/21/2020 11:17:00 AM EST [facility] Name Value Range Interpretation Code Description Data Lanny rce(s) Supporting Document(s) SARS coronavirus 2 RNA Not Detected [facility] This lab was ordered by [facility] and reported by [facility]. ID Date Data Source [id number] 07/13/2020 09:15:00 AM EST [facility] Name Value Range Interpretation Code Description Data Lanny rce(s) Supporting Document(s) SARS coronavirus 2 RNA [Presence] in Res piratory specimen by SANDY with probe detection [facility] This lab was ordered by [facility] a nd reported by [facility]. ID Date Data Source [id number] 07/13/2020 12:00:00 AM EST [facility] Name Value Range Interpretation Code Description Data Lanny rce(s) Supporting Document(s) SARS-CoV2 Rapid Antigen [facility] This lab was ordered by [facility] and reported by [facility]. ID Date Data Source [id number] 07/11/2020 02:30:00 PM EST [facility] Name Value Range Interpretation Code Description Data Lanny rce(s) Supporting Document(s) SARS coronavirus 2 RNA [facility] This lab was ordered by [facility] and reported by [facility]. ID Date Data Source [id number] 07/04/2020 02:13:00 PM EST [facility] Name Value Range Interpretation Code Description Data Lanny rce(s) Supporting Document(s) SARS coronavirus 2 RNA [facility] This lab was ordered by [facility] and reported by [facility]. ID Date Data Source [id number] 06/27/2020 12:14:00 PM EST [facility] Name Value Range Interpretation Code Description Data Lanny rce(s) Supporting Document(s) SARS coronavirus 2 RNA [facility] This lab was ordered by [facility] and reported by [facility]. ID Date Data Source [id number] 06/20/2020 12:43:00 PM EST [facility] Name Value Range Interpretation Code Description Data Lanny rce(s) Supporting Document(s) SARS coronavirus 2 RNA [facility] This lab was ordered by [facility] and reported by [facility]. ID Date Data Source [id number] 06/13/2020 02:16:00 PM EST [facility] Name Value Range Interpretation Code Description Data Lanny rce(s) Supporting Document(s) SARS coronavirus 2 RNA [facility] This lab was ordered by [facility] and reported by [facility]. ID Date Data Source [id number] 06/10/2020 12:00:00 AM EST [facility] Name Value Range Interpretation Code Description Data Lanny rce(s) Supporting Document(s) SARS-CoV2 Rapid Antigen [facility]. ID Date Data Source [id number] 06/06/2020 09:00:00 AM EST [facility] Name Value Range Interpretation Code Description Data Lanny rce(s) Supporting Document(s) SARS coronavirus 2 RNA [facility] This lab was ordered by [facility] and reported by [facility]. ID Date Data Source [id number] 05/30/2020 11:09:00 AM EST [facility] Name Value Range Interpretation Code Description Data Lanny rce(s) Supporting Document(s) SARS coronavirus 2 RNA [facility] This lab was ordered by [facility] and reported by [facility]. ID Date Data Source [id number] 05/23/2020 02:15:00 PM EST [facility] Name Value Range Interpretation Code Description Data Lanny rce(s) Supporting Document(s) SARS coronavirus 2 RNA [facility] This lab was ordered by [facility] and reported by [facility]. ID Date Data Source [id number] 05/16/2020 05:30:00 AM EST [facility] Name Value Range Interpretation Code Description Data Lanny rce(s) Supporting Document(s) SARS coronavirus 2 RNA [facility] This lab was ordered by [facility] and reported by [facility]. ID Date Data Source [id number] 05/12/2020 01:56:00 PM EDT [facility] Name Value Range Interpretation Code Description Data Lanny rce(s) Supporting Document(s) SARS coronavirus 2 RNA [facility] This lab was ordered by [facility] and reported by [facility]. ID Date Data Source [id number] 05/02/2020 07:30:00 AM EDT [facility] Name Value Range Interpretation Code Description Data Lanny rce(s) Supporting Document(s) SARS coronavirus 2 RNA [facility] This lab was ordered by [facility] and reported by [facility]. ID Date Data Source [id number] 04/18/2020 02:00:00 PM EDT [facility] Name Value Range Interpretation Code Description Data Lanny rce(s) Supporting Document(s) SARS coronavirus 2 RNA [facility] This lab was ordered by [facility] and reported by [facility]. ID Date Data Source [id number] 04/14/2020 02:50:00 PM EDT [facility] Name Value Range Interpretation Code Description Data Lanny rce(s) Supporting Document(s) SARS coronavirus 2 RNA [facility] This lab was ordered by [facility] and reported by [facility]. ID Date Data Source PLZ PLZ DUPLEX EXT LOWER VEINS UNILAT 04/13/2020 09:01:47 AM EDT eCW1 ([facility]) Name Value Range Interpretation Code Description Data Lanny rce(s) Supporting Document(s) PLZ PLZ DUPLEX EXT LOWER VEINS UNILAT eCW1 ([facility]) ID Date Data Source [id number] 04/10/2020 12:10:00 AM EDT [facility] 1 OrderSheet [facility] Emergency Department [address] [place] [address] Phone #: ext- [phone] 04/10/2020 00:09 Patient: LORY RIVERA Sex: F [...] Nora RobertsonINC PP(Oxygen?(No))(IV?(Yes)) NOTES: GFR >60 from [facility] on 04/09/20 at 19:50, negative hcg yesterday Reason for Study: elevated d-dimerMEDICATION/IV/DRIP/FLUID ORDERSOrder Description Priority Entered Acknowledged InitialedGENERAL ORDERSOrder Description Priority Entered Acknowledged InitialedEKG 00:27 04/10/2020 01:13 Anthony Austin Norma MD; Lopez Robertson 2 OrderSheet [facility] Emergency Department [address] [place] [address] Phone #: ext- [phone] 04/10/2020 00:09 Patient: LORY RIVERA Sex: F : 1990 Age: 30y[Electronically signed by Lopez Austin R.N. (06:58 04/10/2020)][Electronically signed by Ricky Cruz MD (16:05 04/12/2020)][Electronically locked by Lopez Austin R.N. (06:58 04/10/2020)] Name Value Range Interpretation Code Description Data Lanny rce(s) Supporting Document(s) ID Date Data Source [id number] 04/10/2020 12:10:00 AM EDT [facility] 1 Medication Reconciliation Report [facility] Emergency Department [address] [place] [address] Phone #: ext- [phone] 04/10/2020 00:09 Patient: [...] rce(s) Supporting Document(s) ID Date Data Source [id number] 04/10/2020 12:10:00 AM EDT [facility] 1 Medication Administration Record [facility] Emergency Department [address] [place] [address] Phone #: ext- [phone] 00:09 Patient: LORY RIVERA Sex: F : 1990 Age: 30yWeight: 174.1 kgHeight/Length: 64 inBMI: 65.9ALLERGIES: No Known Drug AllergyDate/Time Medication Administered Medication Ordered Name Value Range Interpretation Code Description Data Lanny rce(s) Supporting Document(s) ID Date Data Source [id number] 04/10/2020 12:10:00 AM EDT [facility] 1 General Instructions [facility] Emergency Department [address] [place] [address] Phone #: ext- [phone] 04/10/2020 00:09 Patient: [...] Causes of Chest Pain 2 General Instructions [facility] Emergency Department [address] [place] [address] Phone #: ext- [phone] 04/10/2020 00:09 Patient: [...] and avoid strenuous activity. 3 General Instructions [facility] Emergency Department [address] [place] [address] Phone #: ext- [phone] 04/10/2020 00:09 Patient: LORY RIVERA Sex: F : 1990 Age: 30y Take any prescribed medicine as directed. Be aware of any recurrent chest pain and notice any changesFollow-up careFollow up with your healthcare provider if you do not start to feel better within 24 hours, or as advised.Call [phone] if any of these occur: A change [...] Swelling, pain or redness in one leg [phone] [employer]. [address] [place] [address], [place] [address]. All rights reserved. This information is not intended as asubstitute for professional medical care. Always follow your healthcare professional's instructions.Established High Blood Pressure 4 General Instructions [facility] Emergency Department [address] [place] [address] Phone #: ext- [phone] 04/10/2020 00:09 Patient: [...] end your need for 5 General Instructions [facility] Emergency Department [address] [place] [address] Phone #: ext- [phone] 04/10/2020 00:09 Patient: [...] that stimulate the heart. This includes many mvpo-dna-rharxnq cold and sinus decongestant pills and sprays, as well as diet pills. Check the warnings about high blood pressure on the label. Before buying any shsl-fnb-rhxnrbb medicines or supplements, always ask the pharmacist [...] get one of these at most pharmacies.The [employer] recommends the following guidelines for home blood pressuremonitorin General Instructions [facility] Emergency Department [address] [place] [address] Phone #: ext- [phone] 04/10/2020 00:09 Patient: [...] sound in the ears 7 General Instructions [facility] Emergency Department [address] [place] [address] Phone #: ext- [phone] 04/10/2020 00:09 Patient: LORY RIVERA Sex: F : 1990 Age: 30y Nosebleed Sudden severe pain in your belly (abdomen) Extreme drowsiness, confusion, or fainting Dizziness or spinning sensation (vertigo) Weakness of an arm or leg or one side of the face You have problems speaking or seeing [phone] [employer]. [address] [place] [address], [place] [address]. All rights reserved. This information is not [...] rce(s) Supporting Document(s) ID Date Data Source [id number] 04/10/2020 12:10:00 AM EDT [facility] 1 Clinical Report - Nurses [facility] Emergency Department [address] [place] [address] Phone #: ext- [phone] 04/10/2020 00:09 Patient: LORY RIVERA Sex: F : 1990 Age: 30yTRIAGEArrived by private vehicle. Historian: patient.Triage time: 00:15 04/10/2020. Acuity: LEVEL 3.Chief Complaint: (chest pressure).Alert. No acute distress.Onset. (tonight). No fever, weakness, cough, difficulty breathing or skin rash. 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 2 Clinical Report - Nurses [facility] Emergency Department [address] [place] [address] Phone #: ext- [phone] 04/10/2020 00:09 Patient: [...] NOTESPatient transported to CT by wheelchair with assistant professor of radiology. --01:53 04/10/20 Nora Portillo R.N. ( Multiple [...] Austin R.N. 3 Clinical Report - Nurses [facility] Emergency Department [address] [place] [address] Phone #: ext- [phone] 04/10/2020 00:09 ------ Patient: LORY RIVERA Sex: [...] Patient verbalized understanding. Written instructions provided in Kazakh. The patient was discharged by the physician. She was discharged home and accompanied by chief operator. She left ambulatory and via private vehicle. International Banker driving. Patient has no belongings. --06:58 04/10/20 Lopez Austin R.N. 06:47 04/10/20. BP: 147/89. MAP: 108. HR: 71. RR: 16. O2 saturation: 98%. Temp: 98.6 F. Pain level now: 0/10. --06:58 04/10/20 Lopez Austin R.N.Locked/Released at 04/10/2020 06:58 by Lopez Austin R.N. 4 Clinical Report - Nurses [facility] Emergency Department [address] [place] [address] Phone #: ext- [phone] 04/10/2020 00:09 Patient: LORY RIVERA Sex: F : 1990 Age: 30y Name Value Range Interpretation Code Description Data Lanny rce(s) Supporting Document(s) ID Date Data Source [id number] 04/10/2020 12:10:00 AM EDT [facility] 1 Clinical Report - Physicians/Mid Levels [facility] Emergency Department [address] [place] [address] Phone #: ext- [phone] 04/10/2020 00:09 Patient: [...] of her chest pain. she was at [facility] and was evaluated for her chest [...] EXAM 2 Clinical Report - Physicians/Mid Levels [facility] Emergency Department [address] [place] [address] Phone #: ext- [phone] 04/10/2020 00:09 Patient: [...] EKGLaboratory Tests: D-Dimer: (CHELSEA: 04/10/2020 05:53) ( [facility] 04/10/2020 06:03) Final results Test Result Flag Units (Reference) D-DIMER QUANT <0.27 ug/mL (0.27 - 0.50) D-Dimer: (CHELSEA: 04/10/2020 01:24) ( [facility] 04/10/2020 01:35) Final results Test Result Flag Units (Reference) D-DIMER QUANT 0.55 H ug/mL (0.27 - 0.50) Troponin-T: (CHELSEA: 04/10/2020 01:24) ( [facility] 04/10/2020 01:49) Final results Test Result Flag Units (Reference) TROPONIN T <0.01 NG/ML (0.00 - 0.10) TROPONIN T0.1 ng/ml Recommended as the clinical threshold value forTroponin T..PROGRESS AND PROCEDURESCourse of Care: pt presents to the ED for evaluation of her chest wall pain. she was seen at [facility].all her blood work was negative including [...] counseled. 3 Clinical Report - Physicians/Mid Levels [facility] Emergency Department [address] [place] [address] Phone #: ext- [phone] 04/10/2020 00:09 ------ [...] rce(s) Supporting Document(s) ID Date Data Source [id number] 04/11/2020 09:48:00 PM EDT [facility] [address] [facility] [place] [address] RESPIRATORY CARE REPORT ==== ---------NAME------- NUMBER SEX AGE ADMIT DISC. XRAY# F/C TYPEGARCIA CRYSTAL [id number] F 30 04/10/20 04/10/20198254 P E/R DATE OF : 1990 M/R# [id number] #: [phone] TR-03 LOCATION: EMERGENCY DEPT FORMERLY [facility], [facility] [address] [facility] TE:04/10/20 07:37 [facility] [address] PHYSICIAN: JERZY CRUZ NOR Name Value Range Interpretation Code Description Data Lanny rce(s) Supporting Document(s) ID Date Data Source [id number] 04/10/2020 06:03:00 AM EDT [facility] Name Value Range Interpretation Code Description Data Lanny rce(s) Supporting Document(s) Fibrin D-dimer FEU [Mass/volume] in Platelet poor plasma <0. 27 ug/mL 0.27 - 0.50 [facility] ID Date Data Source [id number] 04/10/2020 01:49:00 AM EDT [facility] Name Value Range Interpretation Code Description Data Lanny rce(s) Supporting Document(s) TROPONIN T <0.01 NG/ML 0.00 - 0.10 [facility] TROPONIN T0.1 ng/ml Recommended as the c linical threshold value forTroponin T. ID Date Data Source [id number] 04/10/2020 01:35:00 AM EDT [facility] Name Value Range Interpretation Code Description Data Lanny rce(s) Supporting Document(s) Fibrin D-dimer FEU [Mass/volume] in Platelet poor plasma 0.55 ug /mL 0.27 - 0.50 H [facility] ID Date Data Source [id number] 04/04/2020 02:29:00 PM EDT [facility] Name Value Range Interpretation Code Description Data Lanny rce(s) Supporting Document(s) SARS coronavirus 2 RNA [facility] This lab was ordered by [facility] and reported by [facility]. ID Date Data Source [id number] 03/28/2020 05:30:00 AM EDT [facility] Name Value Range Interpretation Code Description Data Lanny rce(s) Supporting Document(s) SARS coronavirus 2 RNA [facility] This lab was ordered by [facility] and reported by [facility]. ID Date Data Source [id number] 03/23/2020 02:00:00 PM EDT [facility] Name Value Range Interpretation Code Description Data Lanny rce(s) Supporting Document(s) SARS coronavirus 2 RNA [facility] This lab was ordered by [facility] and reported by [facility]. ID Date Data Source [id number] 03/17/2020 02:45:00 PM EDT [facility] Name Value Range Interpretation Code Description Data Lanny rce(s) Supporting Document(s) SARS coronavirus 2 RNA [facility] This lab was ordered by [facility] and reported by [facility]. ID Date Data Source [id number] 03/10/2020 02:44:00 PM EDT [facility] Name Value Range Interpretation Code Description Data Lanny rce(s) Supporting Document(s) SARS coronavirus 2 RNA [facility] This lab was ordered by [facility] and reported by [facility]. Procedure Social History Code Duration Value Status Description Data Source(s ) Smoking 09/15/2020 12:00:00 AM EST Never Smoker completed Never S moker eCW1 ([facility]) Smoking 09/15/2020 12:00:00 AM EST Never Smoker completed Never S moker eCW1 ([facility]) Smoking 09/15/2020 12:00:00 AM EST Never Smoker completed Never S moker eCW1 ([facility]) Smoking 09/15/2020 12:00:00 AM EST Never Smoker completed Never S moker eCW1 ([facility]) Smoking 09/15/2020 12:00:00 AM EST Never Smoker completed Never S moker eCW1 ([facility]) Smoking 09/15/2020 12:00:00 AM EST Never Smoker completed Never S moker eCW1 ([facility]) Smoking 09/15/2020 12:00:00 AM EST Never Smoker completed Never S moker eCW1 ([facility]) Smoking 09/15/2020 12:00:00 AM EST Never Smoker completed Never S moker eCW1 ([facility]) Smoking 09/15/2020 12:00:00 AM EST Never Smoker completed Never S moker eCW1 ([facility]) Smoking 08/18/2020 12:00:00 AM EST Never Smoker completed Never S moker eCW1 ([facility]) Smoking 08/18/2020 12:00:00 AM EST Never Smoker completed Never S moker eCW1 ([facility]) Smoking 08/03/2020 12:00:00 AM EST Never Smoker completed Never S moker eCW1 ([facility]) Smoking 08/03/2020 12:00:00 AM EST Never Smoker completed Never S moker [facility]CW1 [facility] [facility] Smoking 08/03/2020 12:00:00 AM EST Never Smoker completed Never S moker eCW1 ([facility]) Smoking 05/05/2020 12:00:00 AM EDT Never Smoker completed Never S moker eCW1 ([facility]) Smoking 05/05/2020 12:00:00 AM EDT Never Smoker completed Never S moker eCW1 ([facility]) Smoking 05/05/2020 12:00:00 AM EDT Never Smoker completed Never S moker eCW1 ([facility]) Smoking 05/05/2020 12:00:00 AM EDT Never Smoker completed Never S moker eCW1 ([facility]) Smoking 04/26/2020 12:00:00 AM EDT Never Smoker completed Never S moker eCW1 ([facility]) Vital Signs ID Date Data Source UNK Name Value Range Interpretation Code Description Data Source(s) Body weight 358.2 [lb_av] 358.2 [lb_av] [facility] Body height [in_i] eCW1 ([facility]) Body mass index (BMI) [Ratio] 61.48 kg/m2 61.48 kg/m2 eCW1 ([facility]) Heart rate 96 /min 96 /min eCW1 ([facility]) Respiratory rate 18 /min 18 /min eCW1 ([facility]) Body temperature 97.4 [degF] 97.4 [degF] eCW1 ( [facility]) Systolic blood pressure 140 mm[Hg] 140 mm[Hg] e CW1 ([facility]) Diastolic blood pressure 70 mm[Hg] 70 mm[Hg] eCW1 ([facility]) Body weight 366.8 [lb_av] 366.8 [lb_av] eCW1 ([facility]) Body height [in_i] eCW1 ([facility]) Body mass index (BMI) [Ratio] 62.95 kg/m2 62.95 kg/m2 eCW1 ([facility]) Heart rate 80 /min 80 /min eCW1 ([facility]) Respiratory rate 18 /min 18 /min eCW1 ([facility]) Body temperature 97.2 [degF] 97.2 [degF] eCW1 ( [facility]) Systolic blood pressure 140 mm[Hg] 140 mm[Hg] e CW1 ([facility]) Diastolic blood pressure 82 mm[Hg] 82 mm[Hg] eCW1 ([facility]) Body weight 367.8 [lb_av] 367.8 [lb_av] eCW1 ([facility]) Body height [in_i] eCW1 ([facility]) Body mass index (BMI) [Ratio] 63.13 kg/m2 63.13 kg/m2 eCW1 ([facility]) Heart rate 83 /min 83 /min eCW1 ([facility]) Respiratory rate 18 /min 18 /min eCW1 ([facility]) Body temperature 97.5 [degF] 97.5 [degF] eCW1 ( [facility]) Systolic blood pressure 140 mm[Hg] 140 mm[Hg] e CW1 ([facility]) Diastolic blood pressure 90 mm[Hg] 90 mm[Hg] eCW1 ([facility]) Body weight 386.4 [lb_av] 386.4 [lb_av] eCW1 ([facility]) Body height [in_i] eCW1 ([facility]) Body mass index (BMI) [Ratio] 66.32 kg/m2 66.32 kg/m2 eCW1 ([facility]) Heart rate 86 /min 86 /min eCW1 ([facility]) Respiratory rate 18 /min 18 /min eCW1 ([facility]) Body temperature 97.9 [degF] 97.9 [degF] eCW1 ( [facility]) Systolic blood pressure 145 mm[Hg] 145 mm[Hg] e CW1 ([facility]) Diastolic blood pressure 78 mm[Hg] 78 mm[Hg] eCW1 ([facility]) Body weight 380 [lb_av] 380 [lb_av] eCW1 ([facility]) Body height [in_i] eCW1 ([facility]) Body mass index (BMI) [Ratio] 65.22 kg/m2 65.22 kg/m2 eCW1 ([facility]) Heart rate 88 /min 88 /min eCW1 ([facility]) Respiratory rate 18 /min 18 /min eCW1 ([facility]) Body temperature 98 [degF] 98 [degF] eCW1 ([facility]) Systolic blood pressure 158 mm[Hg] 158 mm[Hg] e CW1 ([facility]) Diastolic blood pressure 100 mm[Hg] 100 mm[Hg] eCW1 ([facility]) Patient Treatment Plan of Care Planned Activity Planned Date Details Description Data Source (s) Ciprofloxacin 3 MG/ML / Dexamethasone 1 MG/ML Otic [employer] [facility] 09/15/2020 12:00:00 AM EST eCW1 ([facility]) Ciprofloxacin 3 MG/ML / Dexamethasone 1 MG/ML Otic [employer] pension 09/15/2020 12:00:00 AM EST eCW1 ([facility]) Ciprofloxacin 3 MG/ML / Dexamethasone 1 MG/ML Otic [employer] pension 09/15/2020 12:00:00 AM EST eCW1 ([facility]) Ciprofloxacin 3 MG/ML / Dexamethasone 1 MG/ML Otic [employer] pension 09/15/2020 12:00:00 AM EST eCW1 ([facility]) Ciprofloxacin 3 MG/ML / Dexamethasone 1 MG/ML Otic [employer] pension 09/15/2020 12:00:00 AM EST eCW1 ([facility]) Ciprofloxacin 3 MG/ML / Dexamethasone 1 MG/ML Otic [employer] pension 09/15/2020 12:00:00 AM EST eCW1 ([facility]) Ciprofloxacin 3 MG/ML / Dexamethasone 1 MG/ML Otic [employer] pension 09/15/2020 12:00:00 AM EST eCW1 ([facility]) Ciprofloxacin 3 MG/ML / Dexamethasone 1 MG/ML Otic [employer] pension 09/15/2020 12:00:00 AM EST eCW1 ([facility]) Ciprofloxacin 3 MG/ML / Dexamethasone 1 MG/ML Otic [employer] pension 09/15/2020 12:00:00 AM EST eCW1 ([facility]) Post-OP Shoe/Soft Top Women - 08/04/2020 12:00:00 AM EST eCW1 ([facility]) Post-OP Shoe/Soft Top Women - 08/04/2020 12:00:00 AM EST eCW1 ([facility]) Post-OP Shoe/Soft Top Women - 08/04/2020 12:00:00 AM EST eCW1 ([facility]) Lisinopril 10 MG Oral Tablet 04/27/2020 12:00:00 AM EDT eCW1 ([facility])
[2021-05-07 08:14] LABS: BASO # 0.1 10^3/uL (0.0-0.2); BASO % 0.6 % (0.0-1.0); EOS # 0.2 10^3/uL (0.0-0.5); EOS % 2.5 % (0.0-3.0); HEMATOCRIT 41.5 % (36.0-47.0); HEMOGLOBIN 13.2 g/dl (12.0-15.5); LYMPH # 3.1 10^3/uL (1.5-5.0); LYMPH % 36.4 % (24.0-44.0); MEAN CORPUSCULAR HEMOGLOBIN 27.7 pg (27.0-33.0); MEAN CORPUSCULAR HGB CONC 31.8 g/dl (32.0-36.5); MONO # 0.4 10^3/uL (0.0-0.8); NEUTROPHILS # 4.7 10^3/uL (1.5-8.5); NEUTROPHILS % 55.1 % (36.0-66.0); PLATELET COUNT, AUTOMATED 320 10^3/uL (150-450); RED BLOOD COUNT 4.77 10^6/uL (4.00-5.40); WHITE BLOOD COUNT 8.6 10^3/uL (4.0-10.0)
[2021-05-07 08:31] LABS: RSV AMPLIFICATION NEGATIVE (NEGATIVE)
[2021-05-07] MEDS ORDERED: ISOVUE-370 76% 100ML VIAL As Ordered ONE (08:34)
--- NOTE | 2021-05-07 08:52 | REP ---
INDICATION: Abdominal Pain. COMPARISON: Portable chest, 04/09/2020 TECHNIQUE: Upright PA and lateral chest images were obtained. FINDINGS: There is mild chronic blunting of the left costophrenic angle. The lungs are otherwise clear. There is cardiomegaly. There is no evidence of congestive heart failure. IMPRESSION: 1. Cardiomegaly. 2. Chronic blunting of the left costophrenic angle. 3. No evidence of acute cardiopulmonary pathology and no significant change. <Electronically signed by Helder Schaefer > 05/07/21 [id number]
[2021-05-07] MEDS ORDERED: ALBUTEROL 90 MCG/ACT 8GM HFA INHALER INH ONE (09:00)
--- NOTE | 2021-05-07 09:13 | REP ---
INDICATION: pelvic pain. COMPARISON: None. TECHNIQUE: Transabdominal and transvaginal ultrasound evaluation of the pelvis was performed. FINDINGS: The anteverted uterus measures 6.6 x 4.1 x 3.3 cm. The endometrium measures 2 mm in thickness. There are multiple nabothian cysts in the lower uterine segment. The ovaries are not identified. There is no free fluid the pelvis. IMPRESSION: Limited exam due to patient's body habitus and inadequate filling of the bladder. There are benign nabothian cysts in the lower uterine segment. The uterus and endometrium are otherwise unremarkable. <Electronically signed by Helder Schaefer > 05/07/21 0953
--- NOTE | 2021-05-07 10:27 | REP ---
INDICATION: left sided abdominal pain. COMPARISON: None. TECHNIQUE: Imaging protocol: Computed tomography of the abdomen and pelvis with IV contrast. Contiguous 3 mm thick axial projection images were obtained through the abdomen and pelvis. 2D sagittal and coronal reconstructions were performed. Radiation optimization: All CT scans at this facility use at least one of these dose optimization techniques: automated exposure control; mA and/or kV adjustment per patient size (includes targeted exams where dose is matched to clinical indication); or iterative reconstruction. Contrast material: ISOVUE 370; Contrast volume: 100 ml; Contrast route: INTRAVENOUS (IV). FINDINGS: Heart and lung bases: There is atelectasis or scarring in the anteromedial basal segment of the lower lobe of the left lung. The lung bases are otherwise clear. There are no pleural effusions. The heart size is normal. There is no pericardial effusion. Liver: Normal. Gallbladder: Normal. Spleen: Normal. Pancreas: Normal. Adrenal glands: Normal. Kidneys/bladder: The kidneys enhance normally. The urinary bladder has a normal unenhanced appearance. Pelvic structures: The uterus and ovaries are normal. There is no free fluid the pelvis. There are few reactive external iliac and inguinal lymph nodes, bilaterally. GI tract: There are few scattered colonic diverticuli. There is no evidence of acute inflammation. The appendix is not demonstrated. Abdominal wall and mesentery: There are no abdominal wall defects. There are few reactive mesenteric and retroperitoneal lymph nodes. Abdominal aorta and vascular structures: The abdominal aorta, inferior vena cava, and portal venous system normal. Bony structures: There is degenerative disc disease T11-12 with an anterior disc protrusion complicated by marginal osteophytes. The SI joints and hips are normal. IMPRESSION: 1. There are a few scattered colonic diverticuli without evidence of acute inflammation. 2. The appendix is not identified, suspect surgical absence. 3. There are a few reactive mesenteric, retroperitoneal, external iliac and bilateral inguinal lymph nodes of indeterminate clinical significance. <Electronically signed by Helder Schaefer > 05/07/21 [id number]
[2021-05-07] MEDS ORDERED: ALBU83IN INH (10:47)
[2021-05-07 10:50] LABS: GC DNA AMPLIFICATION NEGATIVE (NEGATIVE)
[2021-05-07 11:45] LABS: ALBUMIN 3.5 GM/DL (3.2-5.2); ALT/SGPT 26 U/L (12-78); BILIRUBIN,DIRECT 0.1 MG/DL (0.0-0.2); BILIRUBIN,TOTAL 0.4 MG/DL (0.2-1.0); CK-MB VALUE MASS 1.2 NG/ML (<3.6); CPK CREATINE PHOSPHOKINASE 75 U/L (26-192); LIPASE 69 U/L (73-393); TROPONIN I < 0.02 NG/ML (< 0.10)
[2021-05-07 12:32] VITALS: BP 132/63
[2021-05-07] MEDS ORDERED: PROAAER10 INH (12:39)
--- NOTE | 2021-05-07 13:51 | ECGEPIP ---
[facility] - ED Test Date: 2021-05-07 Pat Name: LORY VASQUEZ Department: Room: - Gender: Female [employer] Senior Associate: kamlesh : 1990 Requested By: GT Monge PA-C Order Number: [id number] Reading MD: Maegan Goff Measurements Intervals [place] Rate: 65 P: 57 AK: 168 QRS: 80 QRSD: 86 T: 25 QT: 446 QTc: 463 Interpretive Statements Normal sinus rhythm NSTTW abnormalities decreased rate 04/09/20 Electronically Signed on 05-07-2021 13:51:02 EDT by Maegan Goff
== END 2021-05-07 12:46 | disposition home or self-care (01) ==
LOC: M ED 20:37
DX: R10.84 Generalized abdominal pain (principal); I51.7 Cardiomegaly; I88.0 Nonspecific mesenteric lymphadenitis; R06.02 Shortness of breath; I10 Essential (primary) hypertension; Z79.899 Other long term (current) drug therapy
CPT/HCPCS: 36415; 71046; 74177; 76856; 80047; 80076; 81001; 82550; 82553; 83690; 84484; 84702; 85025; 87491; 87591; 87631; 87661; 93005; 99284; Q9967

== ENCOUNTER → 2021-06-22 | Outpatient (REF) ==
[~2021-06-22] MED LIST changes: +ALBU83IN INH; +CLON0.5T2 PO; +PROAAER10 INH; +SERT50TA29 PO
== END ==
LOC: M LABSMTC 11:49
PROVIDERS: ATTEND Family Medicine
DX: Z20.822 Contact with and (suspected) exposure to COVID-19 (principal)

== ENCOUNTER → 2021-09-06 | Outpatient (CLI) | payer BC ==
[2021-09-06 16:18] LABS: HEMOGLOBIN A1c 5.9 %
[2021-09-06 16:24] LABS: ALBUMIN 3.6 GM/DL (3.2-5.2); ALT/SGPT 32 U/L (12-78); BILIRUBIN,TOTAL 0.2 MG/DL (0.2-1.0); BLOOD UREA NITROGEN 12 MG/DL (7-18); CALCIUM LEVEL 8.8 MG/DL (8.5-10.1); CARBON DIOXIDE LEVEL 26 MEQ/L (21-32); CHLORIDE LEVEL 106 MEQ/L (98-107); CHOLESTEROL LEVEL 196 MG/DL (<200); CHOLESTEROL RISK RATIO 6.322 (<5); CREATININE FOR GFR 0.69 MG/DL (0.55-1.30); GLOMERULAR FILTRATION RATE > 60.0 (>60); GLUCOSE, FASTING 106 MG/DL (70-100); HDL CHOLESTEROL 31 MG/DL (>40); LDL CHOLESTEROL 128 MG/DL (<100); NON-HDL-C 165 MG/DL; POTASSIUM SERUM 4.1 MEQ/L (3.5-5.1); SODIUM LEVEL 138 MEQ/L (136-145); TOTAL PROTEIN 7.9 GM/DL (6.4-8.2); TRIGLYCERIDES LEVEL 184 MG/DL (<150)
== END ==
LOC: M PLALAB 11:23
PROVIDERS: ATTEND Nurse Practitioner Adult Health
DX: E74.39 Other disorders of intestinal carbohydrate absorption (principal); I10 Essential (primary) hypertension; Z13.29 Encounter for screening for other suspected endocrine disorder; Z13.220 Encounter for screening for lipoid disorders

== ENCOUNTER → 2021-10-02 | Outpatient (REF) | LOC: M LABSMTC 11:27 | PROVIDERS: ATTEND Family Medicine | DX: Z20.822 Contact with and (suspected) exposure to COVID-19 (principal) ==

== ENCOUNTER → 2021-11-22 | Outpatient (REF) | LOC: M LABSMTC 10:14 | PROVIDERS: ATTEND Family Medicine | DX: Z20.822 Contact with and (suspected) exposure to COVID-19 (principal) ==

== ENCOUNTER → 2022-03-08 | Outpatient (CLI) | payer BC ==
[~2022-03-08] MED LIST changes: +ALBU2.5V10 INH; -ALBU83IN INH
[2022-03-08 16:15] LABS: HEMOGLOBIN A1c 6.1 %
[2022-03-08 16:21] LABS: ALBUMIN 3.8 GM/DL (3.2-5.2); ALT/SGPT 35 U/L (12-78); BILIRUBIN,TOTAL 0.2 MG/DL (0.2-1.0); BLOOD UREA NITROGEN 10 MG/DL (7-18); CALCIUM LEVEL 9.3 MG/DL (8.5-10.1); CARBON DIOXIDE LEVEL 26 MEQ/L (21-32); CHLORIDE LEVEL 103 MEQ/L (98-107); CHOLESTEROL LEVEL 165 MG/DL (<200); CHOLESTEROL RISK RATIO 5.892 (<5); CREATININE FOR GFR 0.63 MG/DL (0.55-1.30); GLOMERULAR FILTRATION RATE > 60.0 (>60); GLUCOSE, FASTING 126 MG/DL (70-100); HDL CHOLESTEROL 28 MG/DL (>40); LDL CHOLESTEROL 88 MG/DL (<100); NON-HDL-C 137 MG/DL; POTASSIUM SERUM 3.8 MEQ/L (3.5-5.1); SODIUM LEVEL 136 MEQ/L (136-145); TOTAL PROTEIN 7.6 GM/DL (6.4-8.2); TRIGLYCERIDES LEVEL 245 MG/DL (<150)
== END ==
LOC: M PLALAB 12:11
PROVIDERS: ATTEND Nurse Practitioner Adult Health
DX: Z13.29 Encounter for screening for other suspected endocrine disorder (principal); Z13.220 Encounter for screening for lipoid disorders; I10 Essential (primary) hypertension; E74.39 Other disorders of intestinal carbohydrate absorption

== ENCOUNTER 2022-12-10 17:09 | Emergency (ER) | payer BC, OTHER, SELFPAY ==
[~2022-12-10] VITALS: Ht 160 cm; Wt 178.5 kg
[2022-12-10 18:41] VITALS: BP 160/80
== END 2022-12-10 18:42 | disposition home or self-care (01) ==
LOC: M ED 17:09
DX: M79.662 Pain in left lower leg (principal); I10 Essential (primary) hypertension; Z79.899 Other long term (current) drug therapy; Z79.51 Long term (current) use of inhaled steroids

== ENCOUNTER 2023-01-19 14:07 | Emergency (ER) | payer OTHER ==
[~2023-01-19] VITALS: Ht 160 cm; Wt 178.6 kg
[2023-01-19 15:48] LABS: BASO % 0.5 % (0.0-1.0); EOS # 0.2 10^3/uL (0.0-0.5); EOS % 2.8 % (0.0-3.0); HEMATOCRIT 41.3 % (36.0-47.0); HEMOGLOBIN 13.5 g/dl (12.0-15.5); LYMPH # 2.8 10^3/uL (1.5-5.0); LYMPH % 33.7 % (24.0-44.0); MEAN CORPUSCULAR HEMOGLOBIN 28.4 pg (27.0-33.0); MEAN CORPUSCULAR HGB CONC 32.7 g/dl (32.0-36.5); MEAN CORPUSCULAR VOLUME 86.8 fl (80.0-96.0); MONO # 0.5 10^3/uL (0.0-0.8); MONO % 5.7 % (2.0-8.0); NEUTROPHILS # 4.6 10^3/uL (1.5-8.5); NEUTROPHILS % 56.6 % (36.0-66.0); PLATELET COUNT, AUTOMATED 303 10^3/uL (150-450); RED BLOOD COUNT 4.76 10^6/uL (4.00-5.40); WHITE BLOOD COUNT 8.2 10^3/uL (4.0-10.0)
[2023-01-19 17:18] LABS: CK-MB VALUE MASS 1.3 NG/ML (<3.6); LIPASE 31 U/L (12-53)
[2023-01-19 17:22] LABS: FREE T4 0.94 NG/DL (0.89-1.76); THYROID STIMULATING HORMONE 1.095 uIU/ML (0.55-4.78)
[2023-01-19 17:32] LABS: ALBUMIN 3.5 G/DL (3.2-5.2); ALKALINE PHOSPHATASE 78 U/L (46-116); ALT/SGPT 18 U/L (7.0-40); AST/SGOT 40 U/L (<34); BILIRUBIN,DIRECT < 0.1 MG/DL (<0.4); BILIRUBIN,TOTAL 0.4 MG/DL (0.3-1.2); BLOOD UREA NITROGEN 8 MG/DL (9-23); CALCIUM LEVEL 9.2 MG/DL (8.5-10.1); CARBON DIOXIDE LEVEL 28 MMOL/L (20-31); CHLORIDE LEVEL 105 MMOL/L (98-107); CPK CREATINE PHOSPHOKINASE 134 U/L (34-145); CREATININE FOR GFR 0.49 MG/DL (0.55-1.30); GLOMERULAR FILTRATION RATE > 60.0 (>60); GLUCOSE, FASTING 117 MG/DL (60-100); MB/CK RELATIVE INDEX 0.97 (< OR =4); POTASSIUM SERUM 4.3 MMOL/L (3.5-5.1); SODIUM LEVEL 138 MMOL/L (136-145); TOTAL PROTEIN 7.3 G/DL (5.7-8.2)
[2023-01-19 17:51] LABS: HCG, SERUM QUALITATIVE NEGATIVE (NEGATIVE)
[2023-01-19] MEDS ORDERED: ISOVUE-370 76% 100ML VIAL As Ordered ONE (18:10)
[2023-01-19 18:15] VITALS: TEMP 98.3
[2023-01-19 21:00] VITALS: BP 159/77; O2SAT 98
== END 2023-01-19 21:10 | disposition home or self-care (01) ==
LOC: M ED 14:07
DX: R06.00 Dyspnea, unspecified (principal); I10 Essential (primary) hypertension; J45.909 Unspecified asthma, uncomplicated; F41.9 Anxiety disorder, unspecified; F32.A Depression, unspecified; G47.30 Sleep apnea, unspecified; Z79.899 Other long term (current) drug therapy; Z79.51 Long term (current) use of inhaled steroids
CPT/HCPCS: 36415; 71045; 71275; 80048; 80076; 82550; 82553; 83690; 83880; 84439; 84443; 84702; 84703; 85025; 87486; 87581; 87633; 87798; 93005; 93041; 93971; 94760; 99285; Q9967

== ENCOUNTER 2023-03-02 22:51 | Emergency (ER) | payer OTHER ==
[~2023-03-02] VITALS: Ht 160 cm; Wt 171.3 kg
[2023-03-02 22:53] VITALS: TEMP 99.1
[2023-03-03] MEDS ORDERED: NAPR-837 PO (01:24)
[2023-03-03] MEDS ORDERED: NAPROXEN 250 MG TAB PO ONE (01:25)
[2023-03-03 01:38] VITALS: BP 140/75; O2SAT 98
== END 2023-03-03 01:39 | disposition home or self-care (01) ==
LOC: M ED 22:51
DX: M25.562 Pain in left knee (principal); I10 Essential (primary) hypertension; E66.9 Obesity, unspecified; Z79.899 Other long term (current) drug therapy

== ENCOUNTER 2023-04-25 20:28 | Emergency (ER) | payer OTHER ==
[~2023-04-25] VITALS: Ht 160 cm; Wt 171.0 kg
[~2023-04-25 20:28] MED LIST changes: +NAPR-837 PO
[2023-04-25 23:35] VITALS: BP 176/98; TEMP 97.4; O2SAT 99
[2023-04-26] MEDS ORDERED: predniSONE 20 MG TAB PO ONE (01:35)
[2023-04-26] MEDS ORDERED: IPRATROPIUM 0.5MG/ALBUTEROL 2.5MG INH SOL UD 3ML (DUONEB) NEB ONE (01:35)
[2023-04-26 02:04] LABS: BASO # 0.1 10^3/uL (0.0-0.2); BASO % 0.7 % (0.0-1.0); EOS # 0.2 10^3/uL (0.0-0.5); HEMATOCRIT 39.4 % (36.0-47.0); HEMOGLOBIN 13.1 g/dl (12.0-15.5); LYMPH # 3.9 10^3/uL (1.5-5.0); LYMPH % 38.1 % (24.0-44.0); MEAN CORPUSCULAR HEMOGLOBIN 28.7 pg (27.0-33.0); MEAN CORPUSCULAR HGB CONC 33.2 g/dl (32.0-36.5); MEAN CORPUSCULAR VOLUME 86.4 fl (80.0-96.0); MONO # 0.5 10^3/uL (0.0-0.8); MONO % 5.2 % (2.0-8.0); NEUTROPHILS # 5.5 10^3/uL (1.5-8.5); NEUTROPHILS % 53.7 % (36.0-66.0); PLATELET COUNT, AUTOMATED 314 10^3/uL (150-450); RED BLOOD COUNT 4.56 10^6/uL (4.00-5.40); WHITE BLOOD COUNT 10.3 10^3/uL (4.0-10.0)
[2023-04-26 02:29] LABS: CK-MB VALUE MASS < 1.0 NG/ML (<3.6)
[2023-04-26 02:31] LABS: CPK CREATINE PHOSPHOKINASE 132 U/L (34-145); MB/CK RELATIVE INDEX 0.75 (< OR =4)
[2023-04-26] MEDS ORDERED: POTASSIUM CHLORIDE 10MEQ SR TABLET PO ONE (02:45)
[2023-04-26] MEDS ORDERED: PRED20TA PO (04:19)
== END 2023-04-26 04:35 | disposition home or self-care (01) ==
LOC: M ED 20:28
DX: J45.901 Unspecified asthma with (acute) exacerbation (principal); E87.6 Hypokalemia; I10 Essential (primary) hypertension; Z79.52 Long term (current) use of systemic steroids; Z79.899 Other long term (current) drug therapy
CPT/HCPCS: 71046; 80047; 82550; 82553; 85025; 85379; 87486; 87581; 87633; 87798; 93005; 99284; J7512

== ENCOUNTER → 2023-04-27 | Outpatient (CLI) | payer OTHER ==
[~2023-04-27] MED LIST changes: +PRED20TA PO
== END ==
LOC: M RAD 11:59
PROVIDERS: ATTEND Nurse Practitioner Adult Health
DX: M25.562 Pain in left knee (principal)

== ENCOUNTER → 2023-07-18 | Outpatient (REF) | payer OTHER | LOC: M SFHCPLAZ 10:01 | PROVIDERS: ATTEND Student in an Organized Health Care Education/Training Program | DX: R05.1 Acute cough (principal) ==

== ENCOUNTER → 2023-09-10 | Outpatient (REF) | payer OTHER | LOC: M LAB REF 16:52 | PROVIDERS: ATTEND Pediatrics | DX: R30.0 Dysuria (principal) ==

== ENCOUNTER → 2023-10-17 | Outpatient (REF) | payer OTHER | LOC: M LAB REF 12:30 | PROVIDERS: ATTEND Physician Assistant | DX: Z20.822 Contact with and (suspected) exposure to COVID-19 (principal) ==

== ENCOUNTER → 2023-11-16 | Outpatient (CLI) | payer OTHER ==
[2023-11-16 11:24] LABS: ALBUMIN 3.7 G/DL (3.2-5.2); ALKALINE PHOSPHATASE 63 U/L (46-116); ALT/SGPT 29 U/L (7.0-40); AST/SGOT 20 U/L (<34); BILIRUBIN,TOTAL 0.2 MG/DL (0.3-1.2); BLOOD UREA NITROGEN 14 MG/DL (9-23); CALCIUM LEVEL 9.3 MG/DL (8.5-10.1); CARBON DIOXIDE LEVEL 29 MMOL/L (20-31); CHLORIDE LEVEL 102 MMOL/L (98-107); CHOLESTEROL LEVEL 149 MG/DL (<200); CHOLESTEROL RISK RATIO 6.26 (<5); CREATININE FOR GFR 0.56 MG/DL (0.55-1.30); GLOMERULAR FILTRATION RATE > 60.0 (>60); GLUCOSE, FASTING 154 MG/DL (60-100); HDL CHOLESTEROL 23.8 MG/DL (>40); NON-HDL-C 125.2 MG/DL; POTASSIUM SERUM 3.3 MMOL/L (3.5-5.1); SODIUM LEVEL 137 MMOL/L (136-145); TOTAL PROTEIN 8.2 G/DL (5.7-8.2); TRIGLYCERIDES LEVEL 511 MG/DL (<150)
[2023-11-16 11:26] LABS: THYROID STIMULATING HORMONE 1.186 uIU/ML (0.55-4.78)
== END ==
LOC: M LAB 10:25
PROVIDERS: ATTEND Nurse Practitioner Adult Health
DX: I10 Essential (primary) hypertension (principal); E11.9 Type 2 diabetes mellitus without complications

== ENCOUNTER → 2024-02-24 | Outpatient (CLI) | payer OTHER ==
[2024-02-24 13:34] LABS: LIPASE 31 U/L (12-53)
[2024-02-24 13:35] LABS: AMYLASE 33 U/L (30-118)
[2024-02-24 13:36] LABS: ALBUMIN 3.6 G/DL (3.2-5.2); ALKALINE PHOSPHATASE 67 U/L (46-116); ALT/SGPT 31 U/L (7.0-40); AST/SGOT 22 U/L (<34); BILIRUBIN,TOTAL 0.3 MG/DL (0.3-1.2); BLOOD UREA NITROGEN 10 MG/DL (9-23); CALCIUM LEVEL 8.9 MG/DL (8.5-10.1); CARBON DIOXIDE LEVEL 28 MMOL/L (20-31); CHLORIDE LEVEL 105 MMOL/L (98-107); CREATININE FOR GFR 0.58 MG/DL (0.55-1.30); GLOMERULAR FILTRATION RATE > 60.0 (>60); GLUCOSE, FASTING 156 MG/DL (60-100); POTASSIUM SERUM 3.4 MMOL/L (3.5-5.1); SODIUM LEVEL 138 MMOL/L (136-145); TOTAL PROTEIN 7.8 G/DL (5.7-8.2)
[2024-02-24 13:41] LABS: HEMOGLOBIN A1c 6.7 % (4.0-6.0)
== END ==
LOC: M PLALAB 09:42
PROVIDERS: ATTEND Nurse Practitioner Adult Health
DX: E11.9 Type 2 diabetes mellitus without complications (principal)

== ENCOUNTER → 2024-03-25 | Outpatient (CLI) | payer OTHER ==
[2024-03-25 19:13] LABS: HEMOGLOBIN A1c 6.2 % (4.0-6.0)
[2024-03-25 19:23] LABS: CREATININE, URINE 123.2 MG/DL
[2024-03-25 19:25] LABS: LIPASE 29 U/L (12-53)
[2024-03-25 19:26] LABS: AMYLASE 39 U/L (30-118)
[2024-03-25 19:27] LABS: ALKALINE PHOSPHATASE 69 U/L (46-116); ALT/SGPT 36 U/L (7.0-40); AST/SGOT 20 U/L (<34); BILIRUBIN,TOTAL 0.4 MG/DL (0.3-1.2); BLOOD UREA NITROGEN 15 MG/DL (9-23); CALCIUM LEVEL 9.5 MG/DL (8.5-10.1); CARBON DIOXIDE LEVEL 30 MMOL/L (20-31); CHLORIDE LEVEL 101 MMOL/L (98-107); CREATININE FOR GFR 0.65 MG/DL (0.55-1.30); GLOMERULAR FILTRATION RATE > 60.0 (>60); GLUCOSE, FASTING 86 MG/DL (60-100); POTASSIUM SERUM 3.2 MMOL/L (3.5-5.1); SODIUM LEVEL 136 MMOL/L (136-145)
== END ==
LOC: M LAB 17:42
PROVIDERS: ATTEND Nurse Practitioner Adult Health
DX: E11.9 Type 2 diabetes mellitus without complications (principal); E74.39 Other disorders of intestinal carbohydrate absorption

== ENCOUNTER → 2024-03-26 | Outpatient (REF) | payer OTHER ==
[2024-03-28 13:46] LABS: HPV APTIMA Not Detected (Not Detected)
== END ==
LOC: M SFHCWAGY 17:34
PROVIDERS: ATTEND Nurse Practitioner Family
DX: Z12.4 Encounter for screening for malignant neoplasm of cervix (principal)
CPT/HCPCS: 87624; G0123

== ENCOUNTER → 2024-06-29 | Outpatient (CLI) | payer OTHER ==
[2024-06-29 14:34] LABS: AMYLASE 36 U/L (30-118)
[2024-06-29 14:35] LABS: ALBUMIN 3.6 G/DL (3.2-5.2); ALKALINE PHOSPHATASE 70 U/L (35-104); ALT/SGPT 37 U/L (7.0-40); AST/SGOT 26 U/L (<34); BILIRUBIN,TOTAL 0.3 MG/DL (0.3-1.2); BLOOD UREA NITROGEN 10 MG/DL (9-23); CALCIUM LEVEL 9.1 MG/DL (8.5-10.1); CARBON DIOXIDE LEVEL 29 MMOL/L (20-31); CHLORIDE LEVEL 100 MMOL/L (98-107); CHOLESTEROL LEVEL 160 MG/DL (<200); CHOLESTEROL RISK RATIO 5.67 (<5); CREATININE FOR GFR 0.59 MG/DL (0.55-1.30); GLOMERULAR FILTRATION RATE > 60.0 (>60); GLUCOSE, FASTING 131 MG/DL (60-100); HDL CHOLESTEROL 28.2 MG/DL (>40); NON-HDL-C 131.8 MG/DL; POTASSIUM SERUM 3.3 MMOL/L (3.5-5.1); SODIUM LEVEL 139 MMOL/L (136-145); TOTAL PROTEIN 7.9 G/DL (5.7-8.2); TRIGLYCERIDES LEVEL 401 MG/DL (<150)
[2024-06-29 14:47] LABS: HEMOGLOBIN A1c 5.9 % (4.0-6.0)
== END ==
LOC: M PLALAB 10:16
PROVIDERS: ATTEND Nurse Practitioner Adult Health
DX: E11.9 Type 2 diabetes mellitus without complications (principal)

== ENCOUNTER 2024-07-10 21:36 | Emergency (ER) | payer OTHER ==
[~2024-07-10] VITALS: Ht 160 cm; Wt 170.9 kg
[2024-07-11] MEDS ORDERED: VENTAER INH (01:44)
[2024-07-11 01:53] VITALS: BP 168/94; TEMP 98.9; O2SAT 99
== END 2024-07-11 01:58 | disposition home or self-care (01) ==
LOC: M ED 21:36
DX: R05.9 Cough, unspecified (principal); B97.4 Respiratory syncytial virus as the cause of diseases classified elsewhere; I10 Essential (primary) hypertension; J45.909 Unspecified asthma, uncomplicated; G47.33 Obstructive sleep apnea (adult) (pediatric); Z79.51 Long term (current) use of inhaled steroids; Z79.52 Long term (current) use of systemic steroids; Z79.899 Other long term (current) drug therapy

== ENCOUNTER → 2024-08-19 | Outpatient (CLI) | payer OTHER ==
[~2024-08-19] MED LIST changes: +VENTAER INH
== END ==
LOC: M LAB 17:50
PROVIDERS: ATTEND Nurse Practitioner Adult Health
DX: M47.816 Spondylosis without myelopathy or radiculopathy, lumbar region (principal); M54.41 Lumbago with sciatica, right side; M54.42 Lumbago with sciatica, left side

== ENCOUNTER → 2024-10-13 | Outpatient (REF) | payer OTHER | LOC: M LAB REF 12:49 | PROVIDERS: ATTEND Pediatrics | DX: R05.9 Cough, unspecified (principal) ==

== ENCOUNTER → 2024-10-21 | Outpatient (CLI) | payer OTHER ==
[2024-10-21 15:44] LABS: HEMOGLOBIN A1c 6.1 % (4.0-6.0)
[2024-10-21 15:52] LABS: AMYLASE 37 U/L (30-118); LIPASE 34 U/L (12-53)
[2024-10-21 15:57] LABS: ALBUMIN 3.8 G/DL (3.2-5.2); ALKALINE PHOSPHATASE 71 U/L (35-104); ALT/SGPT 37 U/L (7.0-40); AST/SGOT 21 U/L (<34); BILIRUBIN,TOTAL 0.3 MG/DL (0.3-1.2); BLOOD UREA NITROGEN 11 MG/DL (9-23); CALCIUM LEVEL 8.9 MG/DL (8.5-10.1); CARBON DIOXIDE LEVEL 29 MMOL/L (20-31); CHLORIDE LEVEL 100 MMOL/L (98-107); CHOLESTEROL LEVEL 182 MG/DL (<200); CHOLESTEROL RISK RATIO 6.25 (<5); CREATININE FOR GFR 0.64 MG/DL (0.55-1.30); GLOMERULAR FILTRATION RATE > 90.0 (>60); GLUCOSE, FASTING 93 MG/DL (60-100); HDL CHOLESTEROL 29.1 MG/DL (>40); LDL CHOLESTEROL 92.3 MG/DL (<100); NON-HDL-C 152.9 MG/DL; POTASSIUM SERUM 3.9 MMOL/L (3.5-5.1); SODIUM LEVEL 138 MMOL/L (136-145); TOTAL PROTEIN 8.3 G/DL (5.7-8.2); TRIGLYCERIDES LEVEL 303 MG/DL (<150)
== END ==
LOC: M LAB 12:20
PROVIDERS: ATTEND Nurse Practitioner Adult Health
DX: E11.9 Type 2 diabetes mellitus without complications (principal)

== ENCOUNTER → 2024-11-12 | Outpatient (CLI) | payer OTHER, SELFPAY | LOC: M SOG 07:47 | PROVIDERS: ATTEND Physician Assistant | DX: M17.11 Unilateral primary osteoarthritis, right knee (principal) ==

== ENCOUNTER → 2025-02-04 | Outpatient (CLI) | payer SELFPAY | LOC: M SOG 02-03 15:11 | PROVIDERS: ATTEND Neuromusculoskeletal Medicine, Sports Medicine | DX: M25.562 Pain in left knee (principal) ==

== ENCOUNTER → 2025-05-04 | Outpatient (CLI) | payer OTHER ==
[2025-05-04 11:49] LABS: ALT/SGPT 33 U/L (7.0-40); AST/SGOT 23 U/L (<34); CALCIUM LEVEL 9.3 MG/DL (8.5-10.1); CARBON DIOXIDE LEVEL 30 MMOL/L (20-31); CHLORIDE LEVEL 100 MMOL/L (98-107); CREATININE FOR GFR 0.62 MG/DL (0.55-1.30); GLOMERULAR FILTRATION RATE > 90.0 (>60); POTASSIUM SERUM 3.4 MMOL/L (3.5-5.1); SODIUM LEVEL 140 MMOL/L (136-145)
[2025-05-04 11:57] LABS: ESTIMATED AVERAGE GLUCOSE 131.0 MG/DL (60-110)
== END ==
LOC: M PLALAB 09:03
PROVIDERS: ATTEND Nurse Practitioner Adult Health
DX: E11.9 Type 2 diabetes mellitus without complications (principal); Z68.44 Body mass index [BMI] 60.0-69.9, adult